=== PATIENT | male | born 1965 | race Caucasian/White ===

== ENCOUNTER 2020-11-30 09:42 | Outpatient (REF) | payer OTHER, SELFPAY ==
--- NOTE | 2020-11-30 11:35 | CT_ITS ---
EXAMINATION: CT ABDOMEN AND PELVIS WITH CONTRAST CLINICAL INFORMATION: Left lower quadrant pain COMPARISON: Previous CT of the abdomen and pelvis March 2020 TECHNIQUE: Multidetector volumetric images were obtained from the superior aspect of the liver through the pubic symphysis following administration 85 mL of Omnipaque 350 intravenous contrast. Sagittal and coronal reformatted images were obtained on the technologist's workstation. Oral contrast: Yes This CT examination was performed using dose optimization techniques as appropriate, variously including the following: *Automated exposure control *Adjustment of mA and/or kV according to patient size (this includes techniques or standardized protocols for targeted exams where dose is matched to indication/reason for exam; i.e. extremities or head) *Use of iterative reconstruction technique DLP: 496 mGy-cm FINDINGS: LUNG BASES: There are 2 small 2 mm peripheral or subpleural calcified left lower lobe nodules and mild left pleural calcification. Similar to previous exam. LIVER, GALLBLADDER, AND BILIARY TREE: The liver is normal in size, shape, and attenuation. There is a small 3 mm low-attenuation lesion in the posterior segment of the right lobe of the liver axial image 23 series 3 this is difficult to characterize due to small size but may represent a small cyst. No biliary ductal dilatation is present. The gallbladder is unremarkable with no evidence of radiopaque gallstones, gallbladder wall thickening, or obvious pericholecystic inflammatory changes. PANCREAS: Unremarkable. SPLEEN: Unremarkable. ADRENAL GLANDS: Unremarkable. KIDNEYS AND URETERS: The kidneys are normal in size, shape, and attenuation. No hydronephrosis, hydroureter, or calculi seen. The previously identified 2 mm left renal stone is not appreciated. No ureteral dilatation or ureteral stone is seen in BLADDER: Not optimally distended. There is question of mild diffuse bladder wall thickening. GASTROINTESTINAL TRACT: There is mild diverticulosis of the colon. No evidence of diverticulitis is seen. Small and large bowel are otherwise. The appendix is unremarkable. The stomach is unremarkable. ABDOMINAL WALL: There is a small umbilical hernia containing fat. There is fat in both canal. LYMPH NODES: Normal. VASCULAR: There is evidence of atherosclerotic disease. No aneurysm is seen. PELVIC VISCERA: Prostate gland is slightly enlarged measuring centimeters. OSSEOUS STRUCTURES: There are degenerative changes of the spine. CT/CT abdomen pelvis w con IMPRESSION: No stone or hydronephrosis is seen. Question new mild diffuse bladder wall thickening. Slightly enlarged prostate gland. Mild diverticulosis. No evidence of diverticulitis.
[2020-11-30] MEDS: Barium Sulfate Oral (Mocha) 450 ML ORAL.SUSP 900 ML PO (12:04)
[2020-11-30] MEDS: iohexoL 350 MG/ML 100 ML INFUS..BTL 85 ML IV (12:04)
== END 2020-11-30 09:43 | disposition home or self-care (01) ==
LOC: HO.CT 09:42
PROVIDERS: Visit Provider Emergency Medicine
DX: R10.32 Left lower quadrant pain (principal); R10.9 Unspecified abdominal pain
CPT/HCPCS: 74177; Q9967

== ENCOUNTER → 2020-12-09 12:43 | Outpatient (BNVA) | payer OTHER, SELFPAY | PROVIDERS: PCP Internal Medicine; Visit Provider Internal Medicine Gastroenterology | DX: Z76.89 Persons encountering health services in other specified circumstances (principal) | CPT/HCPCS: Q3014 ==

== ENCOUNTER 2021-06-18 12:20 | Emergency (ER) | payer OTHER, SELFPAY ==
--- NOTE | ~2021-06-18 | XR_ITS ---
EXAMINATION: XR CHEST CLINICAL INFORMATION: Lower cavity swelling COMPARISON: 05/01/2019 TECHNIQUE: Frontal view of the chest was obtained. FINDINGS: Evidence of previous CABG. No significant abnormality is noted involving the heart, lungs, mediastinum, bony thorax or soft tissues. XR/XR chest 1V IMPRESSION: No CHF.
--- NOTE | ~2021-06-18 | US_ITS ---
EXAMINATION: US VENOUS ULTRASOUND WITH DOPPLER LOWER EXTREMITY, LEFT CLINICAL INFORMATION: Swelling and redness COMPARISON: None TECHNIQUE: Ultrasound of the deep veins is performed from the hip to the calf with compression sonography and color and pulse Doppler assessment. Spectral analysis with color-flow imaging is performed. FINDINGS: There is normal venous compression and respiratory variation and augmented flow. The visualized common femoral vein, superficial femoral vein, profunda femoral vein, popliteal vein, and the trifurcation region shows no evidence of deep venous thrombosis. There is no significant popliteal fossa cyst. If the patient's symptoms persist, followup ultrasound in 5 days 7 days might be of value to exclude proximal propagation from a non-visualized calf vein. Reactive appearing inguinal lymph nodes. US/US venous duplex LE LT IMPRESSION: No DVT demonstrated in the left lower extremity.
[2021-06-18 13:35] VITALS: BP 116/49; PULSE 63; RESP 16; TEMP 36.6; O2SAT 99; BMI 32.0
[2021-06-18 13:46] LABS: MANUAL DIFF FLAG NO
[2021-06-18 13:48] LABS: Basophils Percent Auto 0.3 % (0-2); Eosinophils Absolute Auto 0.2 X10*3/uL (0.0-0.4); Eosinophils Percent Auto 2.4 % (0-4); Hematocrit 38.8 % (42-52); Hemoglobin 12.7 g/dl (14.0-18.0); Imm Gran Abs Auto 0.05 X10*3/uL (0.00-0.03); Imm Gran Pct Auto 0.7 % (0.0-0.4); Lymphocytes Absolute Auto 2.4 X10*3/uL (1.2-4.9); Lymphocytes Percent Auto 33.2 % (20-40); Mean Corpuscular HGB Conc 32.7 g/dl (31.0-36.0); Mean Corpuscular Hemoglobin 27.7 pg (27.0-33.0); Mean Corpuscular Volume 84.5 fL (80-98); Monocytes Absolute Auto 0.6 X10*3/uL (0.1-1.2); Monocytes Percent Auto 8.3 % (2-11); Neutrophils Absolute Auto 3.9 X10*3/uL (2.0-8.3); Neutrophils Percent Auto 55.1 % (45-73); Platelet Count 318 X10*3/uL (160-400); Red Blood Count 4.59 X10*6/uL (4.60-5.80); Red Cell Distribution Width 13.6 % (11.0-16.0); White Blood Count 7.1 X10*3/uL (4.8-10.8)
[2021-06-18 14:12] LABS: Anion Gap 12 (12-20); Blood Urea Nitrogen 12 mg/dL (9-16); Carbon Dioxide 25 mmol/L (22-29); Chloride 106 mmol/L (96-108); Estimated Glomerular Filt Rate > 60; Glucose Random 132 mg/dL (60-115); Potassium 4.6 mmol/L (3.3-5.1); Sodium 138 mmol/L (135-145)
[2021-06-18 14:43] LABS: INTERNATIONAL NORM RATIO 1.1 (0.9-1.1); Prothrombin Time 12.7 SEC (9.9-13.0)
--- NOTE | 2021-06-18 15:04 | ED_ITS ---
HPI - Extremity Problem General Chief complaint: Extremity Problem Stated complaint: leg pain Time Seen by Provider: 06/18/21 14:05 Source: patient Mode of arrival: ambulatory Limitations: language barrier (Occitan-speaking) History of Present Illness HPI Narrative: 55-year-old male with a past medical history of coronary artery disease status post CABG in 2013 currently on a baby aspirin and Plavix, HTN, HLD, GERD, anxiety and internal hemorrhoids presenting to the ED with complaints of left lower extremity pain/swelling/redness for the past 13 days worse today. Reports that it initially started in the upper leg near the groin where it had was painful and red and then it went down to his medial aspect of his knee now it has subsided to his left lower aspect of his leg and he has moderate pain to the calf. He reports that he recently travel to [facility] for 8 days although he was already having pain prior to traveling. He denies history of DVT or PEs. He denies history of hypercoagulation disorder. He denies history of cancer or recent surgeries. He denies any fevers, chills, dizziness, headaches, chest pain, shortness of breath, dyspnea on exertion, orthopnea, palpitations, abdominal pain, abdominal distension, nausea/vomiting/diarrhea, any rashes or any other symptoms complaints or concerns at this time. MD Complaint: extremity pain and extremity swelling Onset (ago): day(s) (13 days worse today) Pain Consistency: constant Location: left and lower extremity Severity scale (1-10): >10 Quality: aching Radiation: distal Relieving factors: nothing Exacerbating factors: weight bearing, walking and palpation Associated symptoms: denies other symptoms Context: recent travel (He recently came back from [facility] although was already having pain prior to travel) Related Data Home Medications Medication Instructions Recorded Confirmed aspirin 81 mg tablet,delayed 81 mg PO DAILY 12/09/20 12/09/20 release (Adult Low Dose Aspirin) atorvastatin 40 mg tablet 40 mg PO BEDTIME 12/09/20 12/09/20 clopidogrel 75 mg tablet (Plavix) 75 mg PO DAILY 12/09/20 12/09/20 pantoprazole 40 mg tablet,delayed 40 mg PO DAILY 12/09/20 12/09/20 release Previous Rx's Medication Instructions Recorded docusate sodium 100 mg capsule 100 mg PO DAILY 30 Days #30 cap 12/09/20 (Colace) cephalexin 500 mg capsule 500 mg PO QID 10 Days #40 cap 06/18/21 doxycycline monohydrate 100 mg 100 mg PO BID 10 Days #20 cap 06/18/21 capsule oxycodone-acetaminophen 5 mg-325 1 tab PO Q6H PRN #10 tab 06/18/21 mg tablet (Percocet) Allergies Allergy/AdvReac Type Severity Reaction Status Date / Time No Known Allergies Allergy Verified 12/09/20 12:43 [No Known Allergies*] Review of Systems Review of Systems: Constitutional : No Weight loss, No Fever, No Chills, No Night Sweats, No Fatigue, No Malaise ENT/Mouth : No Hearing loss, No Ear Pain, No Nasal Congestion, No Sinus Pain, No Hoarseness, No sore throat, No Rhinorrhea, No Swallowing Difficulty Eyes: No Eye Pain, No Swelling, No Redness, No Foreign Body, No Discharge, No Vision Changes Cardiovascular : No Chest Pain, No SOB, No Dyspnea on Exertion, No Orthopnea, No Edema, No Palpitations Respiratory : No Cough, No Sputum, No Wheezing, No Smoke Exposure, No Dyspnea Gastrointestinal : No Nausea, No Vomiting, No Diarrhea, No Constipation, No abdominal Pain, No Hematochezia, No Melena Genitourinary : no irregular bleeding, No Dysuria, No Urinary Frequency, No Hematuria, No Urinary Incontinence, No Urgency, No Flank Pain, No Urinary Flow Changes, No Hesitancy Musculoskeletal : Left lower extremity pain/swelling/surrounding redness with calf tenderness, No Myalgias Skin : No Skin Lesions, No rash Neuro : No Weakness, No Numbness, No Paresthesias, No Loss of Consciousness, No Dizziness, No Headache Psych : No Anxiety/Panic, No Depression, No SI/HI/AH/VH, No Social Issues, Heme/Lymph: No Bruising, No Bleeding,No Lymphadenopathy Endocrine : No Polyuria, No Polydipsia, No Temperature Intolerance Yes all other systems are reviewed and are negative [facility] Past Medical History Attestation statement: The following information was validated with the patient. Medical History GERD (gastroesophageal reflux disease) Internal hemorrhoids Surgical History Hx of CABG Hx of colonoscopy Hx of transurethral resection of prostate Social History Social History Household Members: Spouse Alcohol intake: current Alcohol intake frequency: holidays/special occasions only Advance Directives: Yes Advance Directives Information Provided: Yes Advance Directives on File: No Physical Exam Vital Signs: Vital Signs: Last Vital Signs Temp 97.9 F 06/18/21 13:35 Pulse 63 06/18/21 13:35 Resp 16 06/18/21 13:35 BP 116/49 L 06/18/21 13:35 Pulse Ox 99 06/18/21 13:35 Body Mass Index 32.0 vital signs have been reviewed as normal and appeared to be correct. Blood pressure hypotensive 116/49. Heart rate normal. Respiration rate normal. Tem perature normal. Oxygen saturation normal. Appearance: Alert. Oriented X3. No acute distress. Head: Normal external exam. Normocephalic. Atraumatic. Eyes: PERRLA. EOMI. Conjunctiva and sclera normal. Eyelids normal. ENT: Pharynx normal. Uvula midline. Moist mucous membranes. Neck: Normal inspection. Neck supple. FROM. No adenopathy. No meningeal signs. CVS: Normal heart rate and rhythm. Heart sound normal. Pulses normal throughout. No murmurs/rales/gallops. Respiratory: No respiratory distress. Painless inspiration. Breath sounds normal. No wheezes/rales/rhonchi noted. Chest nontender. No accessory muscle usage noted or decreased air movement noted. Back: Full range of motion noted. Skin: Skin warm and dry. Normal skin color. Normal skin turgor. No ra shes/lesions/lacerations noted. Extremities: Patient with moderate tenderness to palpation and erythema and edema to left lower extremity with calf tenderness. No right lower extremity tenderness/swelling/pitting edema noted. Otherwise all other extremities exhibit normal range of motion and nontender. Neuro: Oriented X 3. No motor deficit. No sensory deficit. Reflexes normal. Normal steady gait. No focal neuro deficits noted. Vascular: + radial pulses/+ 2 distal pedal pulses/+2 dorsalis pedis b/l. Normal cap refill. No cyanosis noted to upper extremity nails and lower extremity toes nails. Course Course Course Narrative: 14:10pm - 55-year-old male with a past medical history of coronary artery disease status post CABG in 2013 currently on a baby aspirin and Plavix, HTN, HLD presenting to the ED with complaints of left lower extremity pain/swelling/redness for the past 13 days worse today. Reports that it initially started in the upper leg near the groin where it had was painful and red and then it went down to his medial aspect of his knee now it has subsided to his left lower aspect of his leg and he has moderate pain to the calf. He reports that he recently travel to [facility] for 8 days although he was already having pain prior to traveling. Plan: Labs, chest x-ray and a venous duplex ultrasound of left lower extremity Reevaluation(s) Reevaluation #1: - labs obtained and patient with a mild baseline anemia similar when compared to prior. Otherwise all other labs including BNP within normal limits. Chest x-ray within normal limits no evidence of CHF. Venous duplex ultrasound of left lower extremity negative for DVT or any other acute processes. Therefore patient most likely pedal edema with cellulitic infection. Will DC home antibiotics and symptomatic treatment along with instructions return if any new or worsening symptoms to follow up with primary care provider. Patient understands agrees with this plan. Time: 16:15 MDM - Extremity (Nontraumatic) Lab Data Attestation: I reviewed the patient's lab results. Result diagrams: 06/18/21 13:42 06/18/21 13:42 Labs: Lab Results 06/18/21 06/18/21 06/18/21 Range/Units 13:42 13:42 14:33 WBC 7.1 (4.8-10.8) X10*3/uL RBC 4.59 L (4.60-5.80) X10*6/uL Hgb 12.7 L (14.0-18.0) g/dl Hct 38.8 L (42-52) % MCV 84.5 (80-98) fL MCH 27.7 (27.0-33.0) pg MCHC 32.7 (31.0-36.0) g/dl RDW 13.6 (11.0-16.0) % Plt Count 318 (160-400) X10*3/uL MPV 10.0 (9.4-12.4) fL Immature Gran % (Auto) 0.7 H (0.0-0.4) % Neut % (Auto) 55.1 (45-73) % Lymph % (Auto) 33.2 (20-40) % [place] % (Auto) 8.3 (2-11) % Eos % (Auto) 2.4 (0-4) % Baso % (Auto) 0.3 (0-2) % Lymph # (Auto) 2.4 (1.2-4.9) X10*3/uL [place] # (Auto) 0.6 (0.1-1.2) X10*3/uL Eos # (Auto) 0.2 (0.0-0.4) X10*3/uL Baso # (Auto) 0.0 (0.0-0.2) X10*3/uL Abs Immat Gran (auto) 0.05 H (0.00-0.03) X10*3/uL Absolute Neuts (auto) 3.9 (2.0-8.3) X10*3/uL Absolute Nucleated RBC 0.000 (0.0-0.012) X10*3/uL Nucleated RBC % (auto) 0.0 (0.0-0.2) /100WBC Hold Purple Top PT 12.7 (9.9-13.0) SEC INR 1.1 (0.9-1.1) Sodium 138 (135-145) mmol/L Potassium 4.6 (3.3-5.1) mmol/L Chloride 106 (96-108) mmol/L Carbon Dioxide 25 (22-29) mmol/L Anion Gap 12 (12-20) BUN 12 (9-16) mg/dL Creatinine 0.93 (0.5-1.4) mg/dL Estim Creat Clear Calc 92.0 Estimated GFR > 60 Random Glucose 132 H (60-115) mg/dL Calcium 9.0 (8.4-10.2) mg/dL B-Natriuretic Peptide (<100) pg/mL 06/18/21 06/18/21 Range/Units 14:33 14:33 WBC (4.8-10.8) X10*3/uL RBC (4.60-5.80) X10*6/uL Hgb (14.0-18.0) g/dl Hct (42-52) % MCV (80-98) fL MCH (27.0-33.0) pg MCHC (31.0-36.0) g/dl RDW (11.0-16.0) % Plt Count (160-400) X10*3/uL MPV (9.4-12.4) fL Immature Gran % (Auto) (0.0-0.4) % Neut % (Auto) (45-73) % Lymph % (Auto) (20-40) % [place] % (Auto) (2-11) % Eos % (Auto) (0-4) % Baso % (Auto) (0-2) % Lymph # (Auto) (1.2-4.9) X10*3/uL [place] # (Auto) (0.1-1.2) X10*3/uL Eos # (Auto) (0.0-0.4) X10*3/uL Baso # (Auto) (0.0-0.2) X10*3/uL Abs Immat Gran (auto) (0.00-0.03) X10*3/uL Absolute Neuts (auto) (2.0-8.3) X10*3/uL Absolute Nucleated RBC (0.0-0.012) X10*3/uL Nucleated RBC % (auto) (0.0-0.2) /100WBC Hold Purple Top SEE NOTE PT (9.9-13.0) SEC INR (0.9-1.1) Sodium (135-145) mmol/L Potassium (3.3-5.1) mmol/L Chloride (96-108) mmol/L Carbon Dioxide (22-29) mmol/L Anion Gap (12-20) BUN (9-16) mg/dL Creatinine (0.5-1.4) mg/dL Estim Creat Clear Calc Estimated GFR Random Glucose (60-115) mg/dL Calcium (8.4-10.2) mg/dL B-Natriuretic Peptide 51 (<100) pg/mL Imaging Data Chest x-ray: Attestation: I personally reviewed and interpreted this imaging study as follows: Radiologist's impression: FINDINGS: Evidence of previous CABG. No significant abnormality is noted involving the heart, lungs, mediastinum, bony thorax or soft tissues. XR/XR chest 1V IMPRESSION: No CHF. Venous duplex ultrasound of left lower extremity: Attestation: I personally reviewed and interpreted this imaging study as follows: Radiologist's impression: FINDINGS: There is normal venous compression and respiratory variation and augmented flow. The visualized common femoral vein, superficial femoral vein, profunda femoral vein, popliteal vein, and the trifurcation region shows no evidence of deep venous thrombosis. ? There is no significant popliteal fossa cyst. If the patient's symptoms persist, followup ultrasound in 5 days 7 days might be of value to exclude proximal propagation from a non-visualized calf vein. Reactive appearing inguinal lymph nodes. US/US venous duplex LE LT IMPRESSION: No DVT demonstrated in the left lower extremity. Discharge Plan Discharge Clinical Impression: Pedal edema, Cellulitis Patient Disposition: Home, Self-Care Instructions: Cellulitis (ED), Leg Edema (ED) Prescriptions: New doxycycline monohydrate 100 mg capsule 100 mg PO BID 10 Days Qty: 20 RF: 0 cephalexin 500 mg capsule 500 mg PO QID 10 Days Qty: 40 RF: 0 oxycodone-acetaminophen [Percocet] 5-325 mg tablet 1 tab PO Q6H PRN (Reason: pain) Qty: 10 RF: 0 No Action pantoprazole 40 mg tablet,delayed release (DR/EC) 40 mg PO DAILY RF: 0 clopidogrel [Plavix] 75 mg tablet 75 mg PO DAILY RF: 0 aspirin [Adult Low Dose Aspirin] 81 mg tablet,delayed release (DR/EC) 81 mg PO DAILY RF: 0 atorvastatin 40 mg tablet 40 mg PO BEDTIME RF: 0 docusate sodium [Colace] 100 mg capsule 100 mg PO DAILY 30 Days Qty: 30 RF: 5 Referrals: Chris Phoenix MD [Primary Care Provider] - 2 days Print Language: Occitan
[2021-06-18 15:06] LABS: B Type Natriuretic Peptide 51 pg/mL (<100)
== END 2021-06-18 16:25 | disposition home or self-care (01) ==
PROVIDERS: Physician Assistant Medical; Emergency Provider Internal Medicine; PCP Internal Medicine
DX: R60.0 Localized edema (principal); L03.116 Cellulitis of left lower limb; M79.662 Pain in left lower leg; D64.9 Anemia, unspecified; I10 Essential (primary) hypertension; E78.5 Hyperlipidemia, unspecified; Z79.82 Long term (current) use of aspirin; Z79.02 Long term (current) use of antithrombotics/antiplatelets; Z79.899 Other long term (current) drug therapy; Z95.1 Presence of aortocoronary bypass graft
CPT/HCPCS: 36415; 71045; 80048; 83880; 85025; 85610; 93971; 99283; 99284

== ENCOUNTER 2021-06-29 14:19 | Outpatient (REF) | payer OTHER, SELFPAY ==
--- NOTE | ~2021-06-29 | XR_ITS ---
EXAMINATION: XR ANKLE, LEFT XR FOOT, LEFT CLINICAL INFORMATION: Edema. COMPARISON: None. TECHNIQUE: AP, oblique, and lateral views of the left ankle and foot. FINDINGS: No acute fracture or dislocation. Circumferential left ankle soft tissue swelling. Degenerative spurring at the dorsal aspect of the talar head. First metatarsophalangeal hallux valgus angulation with lateral subluxation of the hallux sesamoids. Joint space narrowing with marginal osteophytes at the 1st metatarsophalangeal joint and hallux sesamoids. Plantar and dorsal calcaneal spurs. XR/XR foot LT min 3V IMPRESSION: Circumferential soft tissue swelling without acute osseous abnormality. Prominent degenerative spurring at the dorsal talar head. 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 Small plantar and dorsal calcaneal spurs.
--- NOTE | ~2021-06-29 | US_ITS ---
EXAMINATION: US VENOUS ULTRASOUND WITH DOPPLER LOWER EXTREMITY, LEFT CLINICAL INFORMATION: Swelling COMPARISON: Previous exam June 18, 2021 TECHNIQUE: Ultrasound of the deep veins is performed from the hip to the calf with compression sonography and color and pulse Doppler assessment. Spectral analysis with color-flow imaging is performed. FINDINGS: There is normal venous compression and respiratory variation and augmented flow. The visualized common femoral vein, superficial femoral vein, profunda femoral vein, popliteal vein, and the trifurcation region shows no evidence of deep venous thrombosis. There is no popliteal fossa cyst. There is shotty left inguinal lymphadenopathy. US/US venous duplex LE LT IMPRESSION: No DVT demonstrated in the left lower extremity.
--- NOTE | ~2021-06-29 | XR_ITS ---
EXAMINATION: XR ANKLE, LEFT XR FOOT, LEFT CLINICAL INFORMATION: Edema. COMPARISON: None. TECHNIQUE: AP, oblique, and lateral views of the left ankle and foot. FINDINGS: No acute fracture or dislocation. Circumferential left ankle soft tissue swelling. Degenerative spurring at the dorsal aspect of the talar head. First metatarsophalangeal hallux valgus angulation with lateral subluxation of the hallux sesamoids. Joint space narrowing with marginal osteophytes at the 1st metatarsophalangeal joint and hallux sesamoids. Plantar and dorsal calcaneal spurs. XR/XR ankle LT min 3V IMPRESSION: Circumferential soft tissue swelling without acute osseous abnormality. Prominent degenerative spurring at the dorsal talar head. 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 Small plantar and dorsal calcaneal spurs.
== END 2021-06-29 14:20 | disposition home or self-care (01) ==
LOC: HO.US 14:19
PROVIDERS: PCP Internal Medicine; Visit Provider Internal Medicine
DX: R60.0 Localized edema (principal)
CPT/HCPCS: 73610; 73630; 93971

== ENCOUNTER 2021-07-12 10:57 | Outpatient (REF) | payer OTHER, SELFPAY ==
[2021-07-12 11:51] LABS: MANUAL DIFF FLAG NO
[2021-07-12 11:58] LABS: Basophils Percent Auto 0.5 % (0-2); Eosinophils Absolute Auto 0.2 X10*3/uL (0.0-0.4); Eosinophils Percent Auto 2.5 % (0-4); Hematocrit 39.6 % (42-52); Hemoglobin 12.9 g/dl (14.0-18.0); Imm Gran Abs Auto 0.03 X10*3/uL (0.00-0.03); Imm Gran Pct Auto 0.5 % (0.0-0.4); Lymphocytes Absolute Auto 2.3 X10*3/uL (1.2-4.9); Lymphocytes Percent Auto 38.7 % (20-40); Mean Corpuscular HGB Conc 32.6 g/dl (31.0-36.0); Mean Corpuscular Hemoglobin 27.3 pg (27.0-33.0); Mean Corpuscular Volume 83.9 fL (80-98); Mean Platelet Volume 11.1 fL (9.4-12.4); Monocytes Absolute Auto 0.5 X10*3/uL (0.1-1.2); Monocytes Percent Auto 8.6 % (2-11); Neutrophils Absolute Auto 2.9 X10*3/uL (2.0-8.3); Neutrophils Percent Auto 49.2 % (45-73); Platelet Count 235 X10*3/uL (160-400); Red Blood Count 4.72 X10*6/uL (4.60-5.80); Red Cell Distribution Width 14.1 % (11.0-16.0)
[2021-07-12 12:07] LABS: D Dimer 427 NG/ML
[2021-07-12 12:22] LABS: Anion Gap 12 (12-20); Blood Urea Nitrogen 11 mg/dL (9-16); Calcium 9.4 mg/dL (8.4-10.2); Carbon Dioxide 22 mmol/L (22-29); Chloride 106 mmol/L (96-108); Estimated Glomerular Filt Rate > 60; Glucose Random 111 mg/dL (60-115); Potassium 4.7 mmol/L (3.3-5.1); Sodium 135 mmol/L (135-145)
[2021-07-12 12:52] LABS: Erythrocyte Sedimentation Rate 12 MM/HR (0-15)
== END 2021-07-12 10:58 | disposition home or self-care (01) ==
LOC: HO.LAB 10:57
PROVIDERS: PCP Internal Medicine; Visit Provider Internal Medicine
DX: R10.32 Left lower quadrant pain (principal)
CPT/HCPCS: 36415; 80048; 85025; 85379; 85652

== ENCOUNTER → 2021-07-29 15:21 | Outpatient (BNVA) | payer OTHER, SELFPAY | PROVIDERS: PCP Internal Medicine; Referring Provider Internal Medicine; Visit Provider Surgery | DX: K64.9 Unspecified hemorrhoids (principal) | CPT/HCPCS: 46600; 99202 ==

== ENCOUNTER → 2021-08-16 10:47 | Outpatient (BNVA) | payer OTHER, SELFPAY | PROVIDERS: PCP Internal Medicine; Referring Provider Internal Medicine; Visit Provider Nurse Practitioner Family | DX: K21.9 Gastro-esophageal reflux disease without esophagitis (principal); K64.8 Other hemorrhoids; Z87.19 Personal history of other diseases of the digestive system | CPT/HCPCS: 99202 ==

== ENCOUNTER 2021-09-03 12:39 | Emergency (ER) | payer OTHER, SELFPAY ==
--- NOTE | 2021-09-03 | ECG_ITS ---
Test Reason : chest pain Blood Pressure : / mmHG Vent. Rate : 068 BPM Atrial Rate : 068 BPM P-R Int : 158 ms QRS Dur : 090 ms QT Int : 400 ms P-R-T Axes : 013 -12 057 degrees QTc Int : 425 ms Normal sinus rhythm Left axis deviation Otherwise normal ECG No significant changes seen Referred By: Generic ED Physician Electronically Signed By:LORIE CHAN MD
--- NOTE | ~2021-09-03 | XR_ITS ---
EXAMINATION: XR HIP, LEFT CLINICAL INFORMATION: Left hip pain. Question arthritis for fracture. COMPARISON: Previous pelvis and bilateral hip x-ray January 2016 TECHNIQUE: Two views of the left hip and one view of the pelvis. FINDINGS: Bone alignment is normal. No fracture or dislocation is seen. There are acetabular osteophytes at both hip joints, left greater than right. Joint spaces are otherwise normal. Bones of the pelvis are normal. Soft tissues are normal. XR/XR hip LT w PEL1V IMPRESSION: Mild degenerative changes of both hip joints with small acetabular osteophytes, left greater than right. No fracture seen.
--- NOTE | ~2021-09-03 | CT_ITS ---
EXAMINATION: NONCONTRAST HEAD CT NONCONTRAST CERVICAL SPINE CT INDICATION INFORMATION: Neck pain. Left arm numbness. COMPARISON: 06/21/2018 TECHNIQUE: Separate noncontrast CT examinations of the head and cervical spine were performed. Coronal and sagittal images were created for each examination at the technologist workstation. This CT examination was performed using dose optimization techniques as appropriate, variously including the following: *Automated exposure control *Adjustment of mA and/or kV according to patient size (this includes techniques or standardized protocols for targeted exams where dose is matched to indication/reason for exam; i.e. extremities or head) *Use of iterative reconstruction technique DLP: 1458 mGy-cm FINDINGS: Head: There is no evidence of acute intracranial hemorrhage or territorial infarction. No abnormal mass effect or midline shift is seen. Luo to white matter differentiation is well preserved. No extra-axial fluid collections are identified. No hydrocephalus. No significant volume loss. There is no abnormal attenuation within the brain parenchyma. No acute osseous or soft tissue abnormality. The mastoid air cells and visualized portions of the paranasal sinuses are well aerated. Cervical spine: There is anatomic alignment of the vertebral bodies and posterior elements. The atlantoaxial and atlantooccipital articulations are intact. Vertebral body heights and intervertebral disc spaces are maintained. Small multilevel endplate osteophytes throughout the cervical spine. Mild right bony neuroforaminal narrowing at C4-C5 and C5-C6. No evidence of acute fracture. No prevertebral soft tissue swelling. Visualized portions of the lung apices are unremarkable. The thyroid gland is unremarkable. CT/CT cervical spine wo con IMPRESSION: 1. No acute intracranial finding. 2. No acute fracture or malalignment of the cervical spine. Mild degenerative changes throughout. Mild right-sided bony neuroforaminal narrowing at C4-C5 and C5-C6.
[2021-09-03 12:43] VITALS: BP 133/55; PULSE 70; RESP 18; TEMP 37.2; O2SAT 98; BMI 30.7
[2021-09-03 13:25] LABS: MANUAL DIFF FLAG NO
[2021-09-03 13:26] LABS: Basophils Percent Auto 0.2 % (0-2); Eosinophils Absolute Auto 0.2 X10*3/uL (0.0-0.4); Eosinophils Percent Auto 2.6 % (0-4); Hematocrit 34.9 % (42.0-52.0); Hemoglobin 11.4 g/dl (14.0-18.0); Imm Gran Abs Auto 0.02 X10*3/uL (0.00-0.03); Imm Gran Pct Auto 0.3 % (0.0-0.4); Lymphocytes Absolute Auto 1.6 X10*3/uL (1.2-4.9); Lymphocytes Percent Auto 24.4 % (20-40); Mean Corpuscular HGB Conc 32.7 g/dl (31.0-36.0); Mean Corpuscular Hemoglobin 27.6 pg (27.0-33.0); Mean Corpuscular Volume 84.5 fL (80.0-98.0); Mean Platelet Volume 10.8 fL (9.4-12.4); Monocytes Absolute Auto 0.5 X10*3/uL (0.1-1.2); Monocytes Percent Auto 7.6 % (2-11); Neutrophils Absolute Auto 4.3 x10*3/uL (2.0-8.3); Neutrophils Percent Auto 64.9 % (45-73); Platelet Count 254 X10*3/uL (160-400); Red Blood Count 4.13 X10*6/uL (4.60-5.80); Red Cell Distribution Width 13.5 % (11.0-16.0); White Blood Count 6.6 X10*3/uL (4.8-10.8)
[2021-09-03 13:42] LABS: Alanine Aminotransferase 24 U/L (0-40); Albumin Level 4.1 g/dL (3.5-5.0); Alkaline Phosphatase 77 U/L (39-117); Anion Gap 11 (12-20); Aspartate Amino Transferase 19 U/L (5-37); Bilirubin Total 0.6 mg/dL (0.0-1.0); Blood Urea Nitrogen 18 mg/dL (9-16); Calcium 8.4 mg/dL (8.4-10.2); Carbon Dioxide 23 mmol/L (22-29); Chloride 107 mmol/L (96-108); Estimated Glomerular Filt Rate > 60; Glucose Random 108 mg/dL (60-115); Potassium 3.9 mmol/L (3.3-5.1); Sodium 137 mmol/L (135-145)
[2021-09-03 13:45] LABS: Troponin-I High Sensitivity < 3.5 ng/L (<3.5-35.0)
[2021-09-03 16:35] VITALS: BP 120/52; PULSE 80; RESP 16; TEMP 36.8; O2SAT 99
[2021-09-03 16:59] LABS: Magnesium 2.2 mg/dL (1.6-2.6)
--- NOTE | 2021-09-03 17:04 | ED_ITS ---
HPI - General Adult General Chief complaint: General Medical Stated complaint: lt side body numbness, eye issue Time Seen by Provider: 09/03/21 13:34 Source: patient Mode of arrival: ambulatory Limitations: no limitations History of Present Illness HPI narrative: Patient presents to ED for multiple complaints. Patient presents to ED for left arm pain and numbness starting from posterior neck for the past 4 months. Patient states left hip pain radiating down left leg with slight numbness for the past 3 months. Patient denies any trauma, slurred speech, facial droop, dizziness, headache, or paralysis of extremities. Patient states yesterday the pain was some verbal that he vomited. Patient states no vomiting today. Patient states yesterday he was vomiting so far it caused some redness to the left eye. Patient denies any change in left eye vision or pain. Patient denies any chest pain or shortness of breath Related Data Home Medications Medication Instructions Recorded Confirmed aspirin 81 mg tablet,delayed 81 mg PO DAILY 12/09/20 07/29/21 release (Adult Low Dose Aspirin) atorvastatin 40 mg tablet 40 mg PO BEDTIME 12/09/20 07/29/21 clopidogrel 75 mg tablet (Plavix) 75 mg PO DAILY 12/09/20 07/29/21 pantoprazole 40 mg tablet,delayed 40 mg PO DAILY 12/09/20 07/29/21 release aspirin 81 mg chewable tablet 1 tab PO DAILY 08/16/21 lisinopril 20 mg tablet 20 mg PO QAM 08/16/21 metoprolol succinate 50 mg 0 mg PO 08/16/21 tablet,extended release 24 hr zolpidem 10 mg tablet 10 mg PO BEDTIME PRN 08/16/21 Previous Rx's Medication Instructions Recorded cephalexin 500 mg capsule 500 mg PO QID 10 Days #40 cap 06/18/21 doxycycline monohydrate 100 mg 100 mg PO BID 10 Days #20 cap 06/18/21 capsule oxycodone-acetaminophen 5 mg-325 1 tab PO Q6H PRN #10 tab 06/18/21 mg tablet (Percocet) docusate sodium 100 mg capsule 100 mg PO .QD #30 cap 06/23/21 hydrocortisone 2.5 % topical cream 1 appl GA BID-QID PRN #30 g 08/16/21 with perineal applicator (Proctosol HC) oxycodone-acetaminophen 5 mg-325 1 tab PO TID PRN #9 tab 09/03/21 mg tablet (Percocet) prednisone 20 mg tablet 60 mg PO DAILY 5 Days #15 tab 09/03/21 Allergies Allergy/AdvReac Type Severity Reaction Status Date / Time No Known Allergies Allergy Verified 08/16/21 11:23 [No Known Allergies*] Review of Systems Review of Systems: Yes all other systems are reviewed and are negative Constitutional: Constitutional: Reports as per HPI and Reports no additional constitutional complaints Eyes: Eyes: Reports as per HPI and Reports no additional eye complaints Comments: Left eye redness ENT: Reports system reviewed and no additional complaints, except as documented, Reports as per HPI and Reports neck pain Cardiovascular: Cardiovascular: Reports as per HPI and Reports no additional cardiovascular complaints Respiratory: Respiratory: Reports as per HPI and Reports no additional respiratory complaints Gastrointestinal: Gastrointestinal: Reports as per HPI and Reports no additional gastrointestinal complaints Genitourinary: Genitourinary: Reports no additional male genitourinary complaints and Reports as per HPI Musculoskeletal: Musculoskeletal: Reports no additional musculoskeletal complaints, Reports as per HPI, Reports arthralgias (Left arm pain/tingling and left hip/leg pain tingling) and Reports neck pain Neurologic: Reports system reviewed and no additional complaints, except as documented and Reports as per HPI Psychiatric: Psychiatric: Reports no additional psychiatric complaints and Reports as per HPI Endocrine: Endocrine: Reports no additional endocrine complaints and Reports as per HPI PMF Past Medical History Medical History (Updated 09/03/21 @ 17:33 by YULIA Oconnell) Bleeding hemorrhoids GERD (gastroesophageal reflux disease) Internal hemorrhoids Surgical History (Updated 08/16/21 @ 11:25 by PAULA Bhardwaj) Hx of CABG Hx of colonoscopy Hx of transurethral resection of prostate Social History Social History Household Members: Spouse Alcohol intake: unknown Patient Tobacco Use Status: Tobacco use Unknown Advance Directives: No Advance Directives Information Provided: No Physical Exam Vital Signs: Vital Signs: Last Vital Signs Temp 98.3 F 09/03/21 16:35 Pulse 80 09/03/21 16:35 Resp 16 09/03/21 16:35 BP 120/52 L 09/03/21 16:35 Pulse Ox 99 09/03/21 16:35 Body Mass Index 30.7 Const: General: cooperative, healthy appearing, comfortable, no acute distress, well developed, alert, awake and Physically active Orientation/consciousness: patient oriented x3 HENMT: Head: Yes normal to inspection, Yes No palpable skull fracture present, Yes normocephalic, Yes atraumatic, No abrasion, No Acrocyanosis present, No Castro's sign, No contusion, No hematoma, No laceration, No occipital foramen tenderness, No palpable skull fracture, No raccoon eyes, No scalp lesion, No scalp tenderness, No Temporal artery tenderness present and No periorbital ecchymosis Eyes: General: appearance normal, both eyes and all related structures Eyes/upper lids images: 1. Positive for subconjunctival hemorrhage. 2. Positive for subconjunctival hemorrhage Neck: Neck: Yes normal visual inspection, Yes full ROM, Yes no lymphadenopathy, Yes no meningeal signs, Yes trachea midline, Yes supple, No anterior neck swelling and Yes tender (Posterior cervical mild) Chest: Chest palpation & inspection: normal inspection of the chest and normal palpation of entire chest wall Resp: Effort & Inspection: normal respiratory effort and able to speak in complete sentences Auscultation: clear to auscultation bilaterally Cardio: Jugular venous distension: no JVD Heart sounds: S1 normal heart sound present and S2 normal heart sound present GI: Inspection: Yes normal to inspection and No abdominal wall ecchymosis Palpation (GI): Soft to palpation, not firm, nontender, no guarding and not rigid : General: No CVA tenderness and Yes no CVA tenderness Back/Spine/Pelvis: Back: no CVA tenderness, No CVA tenderness and No back tenderness Skin: General skin exam: no rashes or lesions noted and elasticity normal Neuro: Other: All extremities equal strength 5+. [id number] rapid hand movement intact. Negative facial droop. Negative slurred speech. Ctmwqj-[id number] and rapid hand movement intact. Negative Romberg General: patient oriented x3, gait normal, no meningeal signs and CN's II-XI intact bilaterally Cranial nerves: Yes CN's II-XII intact bilaterally Extrem: Other: Left upper extremity negative for swelling, ecchymosis, deformity, tenderness, erythema, coldness, hardness. Left upper extremity motor/neuro/vascular exam is intact Left lower extremity: Positive for hip tenderness on palpation. Negative for deformity, femoral pulses intact. Negative for swelling of left lower extremity. Negative for redness, ecchymosis, calf pain. Left lower extremity motor/neuro/vascular exam intact. General: Yes normal to inspection and Yes full ROM Psych: Appearance: grossly normal, well kempt and not disheveled Course Course Course Narrative: Patient rapidly medically screen. Patient had labs including EKG and troponin. Well as cervical spine CT scan and left hip x-ray. Neuro exam is intact. NIH score 0. Not suspecting stroke. For add magnesium. Reevaluation(s) Reevaluation #1: Patient troponin negative. Labs normal. Magnesium normal. Cervical spine shows arthritis of the cervical spine with neuro foraminal narrowing. Left hip shows arthritis. Will be discharged with pain meds and steroids. Left eye exam indicates sub conjunctival hemorrhage Time: 17:26 Medical Decision Making MDM Narrative Medical decision making narrative: Subconjunctival hemorrhage. Cervical radiculopathy, left hip arthritis. Lab Data Result diagrams: 09/03/21 13:12 09/03/21 13:12 Labs: Lab Results 09/03/21 09/03/21 09/03/21 Range/Units 13:12 13:12 13:12 WBC 6.6 (4.8-10.8) X10*3/uL RBC 4.13 L (4.60-5.80) X10*6/uL Hgb 11.4 L (14.0-18.0) g/dl Hct 34.9 L (42.0-52.0) % MCV 84.5 (80.0-98.0) fL MCH 27.6 (27.0-33.0) pg MCHC 32.7 (31.0-36.0) g/dl RDW 13.5 (11.0-16.0) % Plt Count 254 (160-400) X10*3/uL MPV 10.8 (9.4-12.4) fL Immature Gran % (Auto) 0.3 (0.0-0.4) % Neut % (Auto) 64.9 (45-73) % Lymph % (Auto) 24.4 (20-40) % Bartholomew % (Auto) 7.6 (2-11) % Eos % (Auto) 2.6 (0-4) % Baso % (Auto) 0.2 (0-2) % Lymph # (Auto) 1.6 (1.2-4.9) X10*3/uL Bartholomew # (Auto) 0.5 (0.1-1.2) X10*3/uL Eos # (Auto) 0.2 (0.0-0.4) X10*3/uL Baso # (Auto) 0.0 (0.0-0.2) X10*3/uL Abs Immat Gran (auto) 0.02 (0.00-0.03) X10*3/uL Absolute Neuts (auto) 4.3 (2.0-8.3) x10*3/uL Absolute Nucleated RBC 0.000 (0.0-0.012) X10*3/uL Nucleated RBC % (auto) 0.0 (0.0-0.2) /100WBC Sodium 137 (135-145) mmol/L Potassium 3.9 (3.3-5.1) mmol/L Chloride 107 (96-108) mmol/L Carbon Dioxide 23 (22-29) mmol/L Anion Gap 11 L (12-20) BUN 18 H D (9-16) mg/dL Creatinine 0.89 (0.5-1.4) mg/dL Estim Creat Clear Calc 93.0 Estimated GFR > 60 Random Glucose 108 (60-115) mg/dL Calcium 8.4 D (8.4-10.2) mg/dL Magnesium 2.2 (1.6-2.6) mg/dL Total Bilirubin 0.6 (0.0-1.0) mg/dL AST 19 (5-37) U/L ALT 24 (0-40) U/L Alkaline Phosphatase 77 (39-117) U/L Troponin I High Sens < 3.5 (<3.5-35.0) ng/L Total Protein 7.0 (6.5-8.0) g/dL Albumin 4.1 (3.5-5.0) g/dL ECG Data Interpretation: Normal sinus rhythm. Ventricular rate 68. Pr interval 158. QRS 90. QTC 425. Negative STEMI Discharge Plan Discharge Clinical Impression: Cervical radiculopathy, Subconjunctival hemorrhage of left eye, Arthritis of hip Patient Disposition: Home, Self-Care Instructions: Subconjunctival Hemorrhage (ED), Osteoarthritis (ED), Cervical Radiculopathy (ED) Additional Instructions: Amezcua electrocardiograma y an?lisis de cornelio resultaron negativos para un ataque card?aco. La tomograf?a computarizada de la columna cervical muestra artritis severa y la radiograf?a de cadera tambi?n muestra artritis severa. Amezcua hemorragia subconjuntival del iam shauna se resolver? por s? linda. Regrese al servicio de urgencias inmediatamente si tiene dolor en el pecho, dificultad para respirar, dolor abdominal, hematuria, dolor en el costado, fiebre limpia con escalofr?os, par?lisis de las extremidades superiores e inferiores, dolor de shalonda kanchan, dolor de antoni, fotofobia , mareos, dificultad para hablar, ca?da facial, iam dolor, o cualquier otro s?ntoma preocupante. Carmen un seguimiento con el proveedor de atenci?n primaria. Prescriptions: New prednisone 20 mg tablet 60 mg PO DAILY 5 Days Qty: 15 RF: 0 oxycodone-acetaminophen [Percocet] 5-325 mg tablet 1 tab PO TID PRN (Reason: pain) Qty: 9 RF: 0 No Action docusate sodium 100 mg capsule 100 mg PO .QD Qty: 30 RF: 5 doxycycline monohydrate 100 mg capsule 100 mg PO BID 10 Days Qty: 20 RF: 0 cephalexin 500 mg capsule 500 mg PO QID 10 Days Qty: 40 RF: 0 oxycodone-acetaminophen [Percocet] 5-325 mg tablet 1 tab PO Q6H PRN (Reason: pain) Qty: 10 RF: 0 lisinopril 20 mg tablet 20 mg PO QAM RF: 0 metoprolol succinate 50 mg tablet extended release 24 hr 0 mg PO RF: 0 zolpidem 10 mg tablet 10 mg PO BEDTIME PRN (Reason: insomnia) RF: 0 aspirin 81 mg tablet,chewable 1 tab PO DAILY RF: 0 hydrocortisone [Proctosol HC] 2.5 % cream with perineal applicator 1 appl GA BID-QID PRN (Reason: hemorrhoids) Qty: 30 RF: 2 pantoprazole 40 mg tablet,delayed release (DR/EC) 40 mg PO DAILY RF: 0 clopidogrel [Plavix] 75 mg tablet 75 mg PO DAILY RF: 0 aspirin [Adult Low Dose Aspirin] 81 mg tablet,delayed release (DR/EC) 81 mg PO DAILY RF: 0 atorvastatin 40 mg tablet 40 mg PO BEDTIME RF: 0 Referrals: Aguila Wise [Physician] - 2 days (Left subconjunctival hemorrhage) Interventions: ED Discharge Assessment Last Done: 09/03/21 18:09 Discharge Date/Time: 09/03/21 18:10 Print Language: Italian
== END 2021-09-03 18:10 | disposition home or self-care (01) ==
PROVIDERS: Physician Assistant; Emergency Provider Internal Medicine; PCP Internal Medicine
DX: M54.12 Radiculopathy, cervical region (principal); H11.32 Conjunctival hemorrhage, left eye; M16.12 Unilateral primary osteoarthritis, left hip; I10 Essential (primary) hypertension; E78.5 Hyperlipidemia, unspecified; I25.10 Atherosclerotic heart disease of native coronary artery without angina pectoris; Z79.02 Long term (current) use of antithrombotics/antiplatelets; Z79.01 Long term (current) use of anticoagulants; Z79.82 Long term (current) use of aspirin
CPT/HCPCS: 36415; 70450; 72125; 73502; 80053; 83735; 84484; 85025; 93005; 99284

== ENCOUNTER → 2021-09-17 10:16 | Outpatient (BNVA) | payer OTHER, SELFPAY | PROVIDERS: PCP Internal Medicine; Referring Provider Internal Medicine; Visit Provider Nurse Practitioner Family | DX: K64.8 Other hemorrhoids (principal); K21.9 Gastro-esophageal reflux disease without esophagitis; K59.00 Constipation, unspecified; R14.0 Abdominal distension (gaseous); Z87.19 Personal history of other diseases of the digestive system | CPT/HCPCS: 99212 ==

== ENCOUNTER 2021-09-22 09:20 | Outpatient (REF) | payer OTHER, SELFPAY ==
--- NOTE | ~2021-09-22 | CT_ITS ---
EXAMINATION: CT ABDOMEN AND PELVIS WITH CONTRAST CLINICAL INFORMATION: Esophageal cancer COMPARISON: Previous CT scans most recent November 2020 TECHNIQUE: Multidetector volumetric images were obtained from the superior aspect of the liver through the pubic symphysis following administration 85 mL of Omnipaque 350 intravenous contrast. Sagittal and coronal reformatted images were obtained on the technologist's workstation. Oral contrast: Yes This CT examination was performed using dose optimization techniques as appropriate, variously including the following: *Automated exposure control *Adjustment of mA and/or kV according to patient size (this includes techniques or standardized protocols for targeted exams where dose is matched to indication/reason for exam; i.e. extremities or head) *Use of iterative reconstruction technique DLP: 511 mGy-cm FINDINGS: LUNG BASES: There are 2 small calcified left lower lobe pulmonary nodules and calcification along the left diaphragmatic pleural surface that is stable. The lung bases are otherwise clear. LIVER, GALLBLADDER, AND BILIARY TREE: The liver is normal in size, shape, and attenuation. There is a small 4 mm low-attenuation lesion in the posterior segment of the right lobe of the liver, axial image 27 series 3. This is similar to previous exams. No other focal hepatic lesion or biliary ductal dilatation is present. The gallbladder is unremarkable with no evidence of radiopaque gallstones, gallbladder wall thickening, or obvious pericholecystic inflammatory changes. PANCREAS: Unremarkable. SPLEEN: Unremarkable. ADRENAL GLANDS: Unremarkable. KIDNEYS AND URETERS: The kidneys are normal in size, shape, and attenuation. No hydronephrosis, hydroureter, or calculi seen. No perinephric stranding. BLADDER: Unremarkable GASTROINTESTINAL TRACT: The small and large bowel are unremarkable. The appendix is unremarkable. ABDOMINAL WALL: There is a small umbilical hernia containing fat. There are small bilateral inguinal hernias containing fat. LYMPH NODES: Normal. VASCULAR: Unremarkable. PELVIC VISCERA: The prostate gland is slightly enlarged measuring 4.5 x 5.0 cm in AP and transverse dimension. OSSEOUS STRUCTURES: There are degenerative changes of the spine. CT/CT abdomen pelvis w con IMPRESSION: Stable small 4 mm low-attenuation lesion in the right lobe of the liver from prior exams. Slightly enlarged prostate gland. Fleischner guidelines were followed.
[2021-09-22] MEDS: iohexoL 300 MG/ML 100 ML INFUS..BTL IV (12:39)
[2021-09-22] MEDS: Barium Sulfate Oral (Berry) 450 ML ORAL.SUSP 900 ML PO (12:39)
== END 2021-09-22 09:21 | disposition home or self-care (01) ==
LOC: HO.CT 09:20
PROVIDERS: Visit Provider Internal Medicine
DX: R59.0 Localized enlarged lymph nodes (principal); R60.0 Localized edema; Z87.891 Personal history of nicotine dependence
CPT/HCPCS: 74177; Q9967

== ENCOUNTER → 2021-12-17 08:25 | Outpatient (BNVA) | payer OTHER, SELFPAY | PROVIDERS: PCP Internal Medicine; Referring Provider Internal Medicine; Visit Provider Nurse Practitioner Family | DX: K21.9 Gastro-esophageal reflux disease without esophagitis (principal); K64.8 Other hemorrhoids | CPT/HCPCS: 99212 ==

== ENCOUNTER 2023-06-19 10:24 | Outpatient (REF) | payer OTHER, SELFPAY ==
[2023-06-19 11:21] LABS: MANUAL DIFF FLAG NO
[2023-06-19 12:07] LABS: Basophils Percent Auto 0.2 % (0-2); Eosinophils Absolute Auto 0.2 X10*3/uL (0.0-0.4); Eosinophils Percent Auto 2.9 % (0-4); Hemoglobin 13.9 g/dl (14.0-18.0); Imm Gran Abs Auto 0.05 X10*3/uL (0.00-0.03); Imm Gran Pct Auto 0.8 % (0.0-0.4); Lymphocytes Absolute Auto 2.2 X10*3/uL (1.2-4.9); Lymphocytes Percent Auto 33.7 % (20-40); Mean Corpuscular HGB Conc 33.9 g/dl (31.0-36.0); Mean Corpuscular Hemoglobin 29.3 pg (27.0-33.0); Mean Corpuscular Volume 86.5 fL (80.0-98.0); Mean Platelet Volume 11.2 fL (9.4-12.4); Monocytes Absolute Auto 0.6 X10*3/uL (0.1-1.2); Monocytes Percent Auto 9.5 % (2-11); Neutrophils Absolute Auto 3.5 x10*3/uL (2.0-8.3); Neutrophils Percent Auto 52.9 % (45-73); Platelet Count 203 X10*3/uL (160-400); Red Blood Count 4.74 X10*6/uL (4.60-5.80); Red Cell Distribution Width 13.4 % (11.0-16.0); White Blood Count 6.6 X10*3/uL (4.8-10.8)
[2023-06-19 12:34] LABS: Alanine Aminotransferase 34 U/L (0-40); Albumin Level 4.1 g/dL (3.5-5.0); Alkaline Phosphatase 60 U/L (39-117); Anion Gap 9 (12-20); Aspartate Amino Transferase 22 U/L (5-37); Bilirubin Total 0.4 mg/dL (0.0-1.0); Blood Urea Nitrogen 14 mg/dL (9-16); Calcium 9.1 mg/dL (8.4-10.2); Carbon Dioxide 26 mmol/L (22-29); Chloride 108 mmol/L (96-108); Estimated Glomerular Filt Rate > 60; Glucose Random 102 mg/dL (60-115); Potassium 4.7 mmol/L (3.3-5.1); Sodium 138 mmol/L (135-145); Total Protein 7.2 g/dL (6.5-8.0)
[2023-06-19 12:53] LABS: Cholesterol 151 mg/dL (<200); HDL Cholesterol 31 mg/dL (>40); LDL Cholesterol Calculated 96 mg/dL (<100); Triglycerides 121 mg/dL (<150)
[2023-06-19 13:40] LABS: Reflex LDLD? No
== END 2023-06-19 10:25 | disposition home or self-care (01) ==
LOC: HO.HHCL 10:24
PROVIDERS: Visit Provider Internal Medicine
DX: I10 Essential (primary) hypertension (principal); I25.10 Atherosclerotic heart disease of native coronary artery without angina pectoris; D50.9 Iron deficiency anemia, unspecified
CPT/HCPCS: 36415; 80053; 80061; 85025

== ENCOUNTER 2023-08-21 11:58 | Outpatient (REF) | payer OTHER, SELFPAY ==
--- NOTE | ~2023-08-21 | XR_ITS ---
EXAMINATION: XR CERVICAL SPINE CLINICAL INFORMATION: Cervical spondylosis. COMPARISON: None available. TECHNIQUE: Frontal, odontoid, bilateral oblique, lateral and swimmer's views of the cervical spine were obtained. FINDINGS: Vertebral body heights and alignment are normal. The disc spaces are well-maintained. There is multi-level cervical spondylosis, most pronounced at C2-C3 and C6-C7. No acute fracture or spondylolisthesis is seen. The posterior elements are intact. There is mild right neural foraminal narrowing at C5-C6, and mild left neural foraminal narrowing is seen at C3-C4. There is no prevertebral soft tissue swelling. The dens and C7-T1 interface are normal. XR/XR cervical spine 3V IMPRESSION: 1. No acute fracture or spondylolisthesis is seen. 2. The cervical disc spaces are well-maintained. 3. There is multi-level cervical spondylosis. 4. There is mild right neural foraminal narrowing at C5-C6, and mild left neural foraminal narrowing is seen at C3-C4.
== END 2023-08-21 11:59 | disposition home or self-care (01) ==
LOC: HO.XRAY 11:58
PROVIDERS: Visit Provider Psychiatry & Neurology Neurology
DX: Z13.89 Encounter for screening for other disorder (principal)
CPT/HCPCS: 72040

== ENCOUNTER 2023-09-12 15:39 | Outpatient (REF) | payer OTHER, SELFPAY ==
[2023-09-12 17:36] LABS: Uric Acid 3.2 mg/dL (3.4-7.0)
== END 2023-09-12 15:40 | disposition home or self-care (01) ==
LOC: HO.HHCL 15:39
PROVIDERS: Visit Provider Internal Medicine
DX: M25.572 Pain in left ankle and joints of left foot (principal); G89.29 Other chronic pain
CPT/HCPCS: 36415; 84550

== ENCOUNTER 2023-10-10 17:54 | Outpatient (REF) | payer OTHER, SELFPAY ==
--- NOTE | ~2023-10-10 | MR_ITS ---
MR CERVICAL SPINE WITHOUT CONTRAST CLINICAL INFORMATION: Severe neck pain. COMPARISON: Cervical spine radiographs 08/21/2023 and cervical spine MRI 04/25/2020 TECHNIQUE: MRI of the cervical spine was obtained using routine sequences without contrast. FINDINGS: Cervical alignment is normal. The vertebral body heights are maintained. Disc volumes are preserved. There is no bone marrow edema. There are no acute fractures. Craniocervical junction is unremarkable. Cervical arterial flow voids are preserved. There are no significant extraspinal soft tissue findings. There are no cord signal changes. C2-C3: Uncovertebral joint spurring and facet arthropathy result in mild to moderate right and mild left foraminal stenosis. A shallow left paracentral disc protrusion mildly narrows the central canal. Findings are similar to the prior study. C3-C4: A broad-based central disc protrusion results in worsening moderate to severe central canal stenosis and flattening of the cervical cord. Uncovertebral joint hypertrophy and hypertrophic facet arthropathy result in mild to moderate right and mild left foraminal stenosis. C4-C5: Diffuse annular disc bulge flattens the ventral cord resulting in similar moderate central canal stenosis. Advanced uncovertebral joint hypertrophy and hypertrophic facet arthropathy result in similar severe right-sided foraminal stenosis. C5-C6: A broad-based central disc protrusion and ligamentum flavum thickening result in worsening moderate to severe central canal stenosis and flattening of the cervical cord. Advanced uncovertebral joint hypertrophy and hypertrophic facet arthropathy result in similar severe right and mild to moderate left foraminal stenosis. C6-C7: A shallow left paracentral disc protrusion and ligamentum flavum thickening result in slightly worsening mild to moderate central canal stenosis. Uncovertebral joint spurring and facet arthropathy result in similar severe left-sided foraminal stenosis. C7-T1: Disc contour is normal. There is no central canal stenosis and there is no foraminal stenosis. MR/MR cervical spine wo con IMPRESSION: Progressive cervical spondylosis with spondylitic changes resulting in worsening moderate to severe central canal stenosis at C3-C4 and C5-C6. Similar moderate central canal stenosis at C4-C5 and slightly worsening mild to moderate central canal stenosis at C6-C7. Varying degrees of moderate to severe foraminal stenosis throughout the cervical spine again noted.
== END 2023-10-10 17:55 | disposition home or self-care (01) ==
LOC: HO.MRI 17:54
PROVIDERS: PCP Internal Medicine; Visit Provider Internal Medicine
DX: M54.2 Cervicalgia (principal); G89.29 Other chronic pain
CPT/HCPCS: 72141

== ENCOUNTER 2024-03-12 09:15 | Outpatient (REF) | payer MEDICARE, MEDICAID, SELFPAY ==
--- NOTE | ~2024-03-12 | MR_ITS ---
EXAMINATION: MR OF THE LEFT FEMUR WITHOUT AND WITH CONTRAST MR OF THE LOWER LEG WITHOUT AND WITH CONTRAST CLINICAL INFORMATION: Painful mass. Patient reports mass near groin and lateral left hip 2 years. Pain and numbness radiating through left leg into foot. COMPARISON: CT scan of the abdomen and pelvis August 2021. X-ray of the pelvis and left hip August 2021. TECHNIQUE: MRI of the left femur is performed without and with contrast. MRI of the left lower leg is performed without and with contrast. Contrast dose: 10 mL of Gadavist given intravenously utilized during both exams. Skin marker placed in the posterior aspect of the left lower leg in the area of reported abnormality directed by the patient. FINDINGS: LEFT FEMUR/THIGH: The exam is slightly limited because of some motion-degrading artifact as well as heterogeneous fat suppression. SUBCUTANEOUS SOFT TISSUES: Normal. No mass or abnormal enhancement. Multiple small lymph nodes noted in the inguinal region likely reactive, largest measuring 13 mm transverse. BONE/CARTILAGE: Femur: Unremarkable. Left Hip Joint: Evaluation is limited given the large [id number]. There is at least mild osteoarthritis of the hip joint with subchondral cystic change noted along the anterior superior aspect of the acetabulum, likely unchanged compared with prior CT August 2021. Left Knee Joint: Limited evaluation due to fat suppression and [id number] only partially including the left knee joint. Possible mild arthrosis of the patellofemoral joint. NEUROVASCULAR STRUCTURES: Normal. No masses or abnormal enhancement. miscellaneous: Right femur/ right thigh was also included on the long axis coronal images. Mild osteoarthritis of the right hip joint with subchondral cystic change along the anterior superior acetabulum, similar to that noted on the left. The remaining bone and soft tissues are unremarkable. LEFT LOWER LEG: SUBCUTANEOUS SOFT TISSUES: Normal. MUSCLES/TENDONS: Normal. NEUROVASCULAR STRUCTURES: Normal. BONE: Normal. No lymphadenopathy. No abnormal enhancement. MR/MR lower leg LT wo/w con IMPRESSION: LEFT FEMUR: 1. No mass or abnormal enhancement. 2. Multiple small lymph nodes in the region of the left thigh likely reactive. 3. Mild osteoarthritis of the left hip, unchanged compared with prior CT August 2021. 4. Incidental note made of mild osteoarthritis of the right hip, unchanged compared with prior CT August 2021. 5. Limited evaluation of the left knee joint. Possible mild arthrosis of the patellofemoral joint. LEFT LOWER LE. No mass or other abnormality. 2. No lymphadenopathy.
--- NOTE | ~2024-03-12 | MR_ITS ---
EXAMINATION: MR OF THE LEFT FEMUR WITHOUT AND WITH CONTRAST MR OF THE LOWER LEG WITHOUT AND WITH CONTRAST CLINICAL INFORMATION: Painful mass. Patient reports mass near groin and lateral left hip 2 years. Pain and numbness radiating through left leg into foot. COMPARISON: CT scan of the abdomen and pelvis August 2021. X-ray of the pelvis and left hip August 2021. TECHNIQUE: MRI of the left femur is performed without and with contrast. MRI of the left lower leg is performed without and with contrast. Contrast dose: 10 mL of Gadavist given intravenously utilized during both exams. Skin marker placed in the posterior aspect of the left lower leg in the area of reported abnormality directed by the patient. FINDINGS: LEFT FEMUR/THIGH: The exam is slightly limited because of some motion-degrading artifact as well as heterogeneous fat suppression. SUBCUTANEOUS SOFT TISSUES: Normal. No mass or abnormal enhancement. Multiple small lymph nodes noted in the inguinal region likely reactive, largest measuring 13 mm transverse. BONE/CARTILAGE: Femur: Unremarkable. Left Hip Joint: Evaluation is limited given the large [id number]. There is at least mild osteoarthritis of the hip joint with subchondral cystic change noted along the anterior superior aspect of the acetabulum, likely unchanged compared with prior CT August 2021. Left Knee Joint: Limited evaluation due to fat suppression and [id number] only partially including the left knee joint. Possible mild arthrosis of the patellofemoral joint. NEUROVASCULAR STRUCTURES: Normal. No masses or abnormal enhancement. miscellaneous: Right femur/ right thigh was also included on the long axis coronal images. Mild osteoarthritis of the right hip joint with subchondral cystic change along the anterior superior acetabulum, similar to that noted on the left. The remaining bone and soft tissues are unremarkable. LEFT LOWER LEG: SUBCUTANEOUS SOFT TISSUES: Normal. MUSCLES/TENDONS: Normal. NEUROVASCULAR STRUCTURES: Normal. BONE: Normal. No lymphadenopathy. No abnormal enhancement. MR/MR femur LT wo/w con IMPRESSION: LEFT FEMUR: 1. No mass or abnormal enhancement. 2. Multiple small lymph nodes in the region of the left thigh likely reactive. 3. Mild osteoarthritis of the left hip, unchanged compared with prior CT August 2021. 4. Incidental note made of mild osteoarthritis of the right hip, unchanged compared with prior CT August 2021. 5. Limited evaluation of the left knee joint. Possible mild arthrosis of the patellofemoral joint. LEFT LOWER LE. No mass or other abnormality. 2. No lymphadenopathy.
[2024-03-12] MEDS: gadobutroL 10 ML VIAL IVPUSH (11:07)
== END 2024-03-12 09:16 | disposition home or self-care (01) ==
LOC: HO.MRI 09:15
PROVIDERS: PCP Internal Medicine; Visit Provider Internal Medicine
DX: M79.605 Pain in left leg (principal); R22.42 Localized swelling, mass and lump, left lower limb
CPT/HCPCS: 73720; A9585

== ENCOUNTER 2024-05-06 09:41 | Outpatient (REF) | payer OTHER, SELFPAY ==
[2024-05-06 11:31] LABS: Prostate Specific Antigen Scr 0.43 ng/mL (<0.05-4.0)
[2024-05-06 12:08] LABS: Alanine Aminotransferase 41 U/L (0-40); Albumin Level 4.2 g/dL (3.5-5.0); Alkaline Phosphatase 60 U/L (39-117); Anion Gap 11 (12-20); Aspartate Amino Transferase 26 U/L (5-37); Bilirubin Total 0.5 mg/dL (0.0-1.0); Blood Urea Nitrogen 14 mg/dL (9-16); Carbon Dioxide 24 mmol/L (22-29); Chloride 108 mmol/L (96-108); Cholesterol 147 mg/dL (<200); Estimated Glomerular Filt Rate > 60; Glucose Random 119 mg/dL (60-115); HDL Cholesterol 29 mg/dL (>40); LDL Cholesterol Calculated 93 mg/dL (<100); Potassium 4.1 mmol/L (3.3-5.1); Sodium 139 mmol/L (135-145); Total Protein 7.2 g/dL (6.5-8.0); Triglycerides 128 mg/dL (<150)
== END 2024-05-06 09:42 | disposition home or self-care (01) ==
LOC: HO.HHCL 09:41
PROVIDERS: Visit Provider Internal Medicine
DX: Z00.00 Encounter for general adult medical examination without abnormal findings (principal); I10 Essential (primary) hypertension; Z12.5 Encounter for screening for malignant neoplasm of prostate
CPT/HCPCS: 36415; 80053; 80061; 84153

== ENCOUNTER 2025-04-09 10:02 | Emergency (ER) | payer OTHER, SELFPAY ==
--- NOTE | ~2025-04-09 | CT_ITS ---
EXAMINATION: CT ABDOMEN PELVIS WITHOUT IV CONTRAST HISTORY: L flank pain COMPARISON: Comparison is made with the prior examination dated 09/22/2021. TECHNIQUE: CT scan of the abdomen and pelvis was performed without contrast using standard departmental protocol. Coronal and sagittal reformatted images were generated and reviewed. Oral contrast material was not administered per department protocol. This CT exam was performed with one or more of the following dose reduction techniques: automated exposure control, adjustment of the mA and/or kV according to patient size, use of iterative reconstruction technique. DLP: 651 mGy-cm FINDINGS: LOWER CHEST: The visualized lung bases are clear. There is no pleural effusion. CARDIOVASCULATURE: The heart is normal in size. There is no pericardial effusion. LIVER: The liver is normal in size and contour. Again seen is a tiny nonspecific 3-4 mm hypodensity in the posterior segment of the right lobe. GALLBLADDER / BILE DUCTS: The gallbladder is unremarkable. There is no intra or extrahepatic biliary ductal dilatation. SPLEEN: The spleen is normal in size and has an unremarkable unenhanced appearance. PANCREAS: The pancreas has an unremarkable unenhanced appearance. ADRENAL GLANDS: Unremarkable. KIDNEYS/RETROPERITONEUM: No renal or ureteral calculi are identified. There is no hydronephrosis or hydroureter. LYMPH NODES: No retroperitoneal lymphadenopathy is identified in the abdomen or pelvis. VASCULATURE: The abdominal aorta demonstrates atherosclerotic calcification, but is normal in caliber. MESENTERY/PERITONEUM: No free fluid. No masses. There is no free intraperitoneal gas. STOMACH: There is a large amount of debris in the stomach. SMALL BOWEL: The small bowel is normal in caliber. COLON: The colon is unremarkable. APPENDIX: Normal. URINARY BLADDER/PELVIC ORGANS: The urinary bladder is unremarkable. The prostate is mildly enlarged. BONES / SOFT TISSUES: There is a tiny fat-containing umbilical hernia. The bones are intact. CT/CT abdomen pelvis wo IV con IMPRESSION: No evidence of nephrolithiasis or ureteral obstruction. Electronically signed by: Regis Conway MD 04/09/2025 12:11 PM EDT
--- NOTE | ~2025-04-09 | US_ITS ---
EXAMINATION: US TRIPLEX LOWER EXTREMITY, LEFT CLINICAL INFORMATION: Left lower extremity pain and edema COMPARISON: 06/29/2021 TECHNIQUE: Color-flow triplex imaging with spectral analysis and compression Doppler were performed on the left lower extremity. FINDINGS: Multiple normal echotexture lymph nodes with a fatty hilum are imaged in the left inguinal region. Respiratory variation, normal compression and augmented flow are noted throughout the left lower extremity. Respiratory variability in the left common femoral vein is moderately attenuated, but unchanged from the prior. The visualized common femoral vein, superficial femoral vein, profunda femoral vein, popliteal vein and midcalf peroneal and posterior tibial venous segments show no evidence of deep venous thrombosis. US/US venous duplex LE LT IMPRESSION: No evidence of deep venous thrombosis involving the left lower extremity. Electronically signed by: Mohsen Hensley MD 04/09/2025 11:57 AM EDT
[2025-04-09 10:51] VITALS: BP 138/62; PULSE 74; RESP 18; TEMP 36.7; O2SAT 99; BMI 32.5
--- NOTE | 2025-04-09 10:52 | ED_ITS ---
HPI - Abdominal Pain General Chief Complaint: Abdominal Pain Stated Complaint: leg pain Time Seen by Provider: 04/09/25 13:00 Source: patient Mode of arrival: ambulatory Limitations: no limitations History of Present Illness ED Provider: Jm Lewis HPI narrative: 59-year-old male history of high cholesterol cholesterol presents to ED for back pain radiating down left leg abd abdominal pain for years. Patient takes left leg swollen. Patient denies any chest pain, shortness of breath, dysuria hematuria. Patient denies any recent trauma. Patient denies any urinary/bowel incontinence. Patient denies any history of IV drug use or immunocompromise diseases. Related Data Home Medications ?Medication ?Instructions ?Recorded ?Confirmed atorvastatin 40 mg tablet 40 mg PO BEDTIME 12/09/20 06/06/22 clopidogrel 75 mg tablet (Plavix) 75 mg PO DAILY 12/09/20 06/06/22 aspirin 81 mg chewable tablet 1 tab PO DAILY 08/16/21 06/06/22 lisinopril 20 mg tablet 20 mg PO QAM 08/16/21 06/06/22 metoprolol succinate 50 mg 50 mg PO DAILY 08/16/21 06/06/22 tablet,extended release 24 hr (Toprol XL) zolpidem 10 mg tablet 10 mg PO BEDTIME PRN insomnia 08/16/21 06/06/22 Previous Rx's ?Medication ?Instructions ?Recorded cephalexin 500 mg capsule 500 mg PO QID 10 days #40 caps 06/18/21 doxycycline monohydrate 100 mg 100 mg PO BID 10 days #20 caps 06/18/21 capsule oxycodone-acetaminophen 5 mg-325 1 tab PO Q6H PRN pain #10 tabs 06/18/21 mg tablet (Percocet) hydrocortisone 2.5 % topical cream 1 appl FL BID-QID PRN hemorrhoids 09/17/21 with perineal applicator #30 grams (Proctosol HC) pantoprazole 40 mg tablet,delayed 40 mg PO DAILY #30 tabs 09/17/21 release sennosides 8.6 mg tablet (Natural 8.6 mg PO BEDTIME constipation #30 09/17/21 Senna Laxative) tabs docusate sodium 100 mg capsule 100 mg PO BEDTIME #90 caps 12/17/21 ferrous fumarate 200 mg (65 mg 1 tab PO BID #60 tabs 12/17/24 iron)-vit C 25 mg tablet,extend release (Nenita-Sequels (iron-vit c)) acetaminophen 325 mg capsule 325 mg PO QID PRN pain #28 caps 04/09/25 cyclobenzaprine 10 mg tablet 10 mg PO TID PRN muscle spasm #15 04/09/25 tabs prednisone 20 mg tablet 40 mg (2 x 20 mg) PO DAILY 5 days 04/09/25 #10 tabs Allergies Allergy/AdvReac Type Severity Reaction Status Date / Time No Known Allergies Allergy Verified 04/09/25 10:52 [No Known Allergies*] Review of Systems Review of Systems back pain, left leg pain/swelling, abdominal pain Yes all other systems are reviewed and are negative [facility] Past Medical History Medical History (Updated 04/10/25 @ 00:00 by Med Caputo) Bleeding hemorrhoids Internal hemorrhoids GERD (gastroesophageal reflux disease) Surgical History Hx of CABG Hx of colonoscopy Hx of transurethral resection of prostate Social History Social History (Updated 06/06/22 @ 10:02 by Lady Thao [facility]) Household Members: Spouse Housing: House Alcohol intake: unknown Patient Tobacco Use Status: Never used Tobacco service: No Current occupational status: disabled Physical Exam ED Vital Signs: Vital Signs - 24 hr 04/09/25 10:51 Temperature 98.0 F Pulse Rate 74 Respiratory Rate 18 Blood Pressure 138/62 Pulse Oximetry 99 Oxygen Delivery Method Room Air BMI result Body Mass Index 32.5 Const General: cooperative, healthy appearing, comfortable, no acute distress, well developed, alert, awake and Physically active Orientation/consciousness: patient oriented x3 HENMT Head: Yes normal to inspection, Yes No palpable skull fracture present, Yes normocephalic and Yes atraumatic Eyes General: appearance normal, both eyes and all related structures Neck Neck: Yes normal visual inspection, Yes full ROM, Yes no lymphadenopathy, Yes no meningeal signs, Yes trachea midline, Yes supple, No anterior neck swelling and No tender Chest Chest palpation & inspection: normal inspection of the chest and normal palpation of entire chest wall Resp Effort & Inspection: normal respiratory effort and able to speak in complete sentences Auscultation: clear to auscultation bilaterally Cardio Jugular venous distension: no JVD Heart sounds: S1 normal heart sound present and S2 normal heart sound present GI Inspection: Yes normal to inspection Palpation (GI): Soft to palpation, not firm, nontender, no guarding and not rigid General: Yes no CVA tenderness Back/Spine/Pelvis Back: no CVA tenderness and No back tenderness Skin General skin exam: no rashes or lesions noted, elasticity normal and turgor normal Neuro General: patient oriented x3, gait normal, tone normal, moves all extremities, Normal light touch and pain sensation, no meningeal signs, no focal motor deficits, CN's II-XI intact bilaterally and normal sensation to monofilament Extrem Other: Bilateral lower extremity negative for swelling, pitting edema, redness, or calf tenderness General: Yes normal to inspection, Yes full ROM and Yes capillary refill normal Psych Appearance: grossly normal, well kempt and not disheveled Course Course Course Narrative: 59 yo male with PMH of anemia, hemorrhoids, CAD, HTN, HLD, GERD here with c/o L leg pain for a while but worse since Monday and leg is swollen. He also c/o low abdominal pain and L flank pain with pain into the rectum since Monday. No trauma. No fevers, n/v/d, dysuria. He has some chills. At this time will obtain labs, UA, CT scan for renal colic, DVT study of L leg. this is a RAPID medical screening exam the rest of the history and physical exam is to be done by the main provider. ASHLY 1054am Medical Decision Making Medical Decision Making [facility] Narrative: 59-year-old male presents ED with multiple complaints. Patient well-appearing. EKG troponin negative. Abdominal CT scan is benign. Ultrasound of lower extremity negative for any DVT. Patient explained worrisome signs and informed to return to the ED immediately. Not suspecting PE, sepsis, epidural abscess, cauda equinus syndrome, peritonitis, osteomyelitis, or any other life- threatening etiology. Patient explained worrisome signs and informed to return to the ED immediately. EKG negative STEMI Differential Diagnosis Differential Diagnoses: The differential diagnosis associated with the presentation includes (Kidney stones, lumbar radiculopathy, DVT) Admission/Observation Consideration of admission/observation: Escalation of care including admission/observation considered Lab Data [facility] Lab Attestation statement: I reviewed the patient's lab results. 04/09/25 11:13 04/09/25 11:13 Labs: Lab Results 04/09/25 04/09/25 Range/Units 11:13 11:24 WBC 5.4 (4.8-10.8) X10*3/uL RBC 4.95 (4.60-5.80) X10*6/uL Hgb 14.3 (14.0-18.0) g/dl Hct 41.3 L (42.0-52.0) % MCV 83.4 (80.0-98.0) fL MCH 28.9 (27.0-33.0) pg MCHC 34.6 (31.0-36.0) g/dl RDW 13.6 (11.0-16.0) % Plt Count 220 (160-400) X10*3/uL MPV 10.6 (9.4-12.4) fL Immature Gran % (Auto) 0.6 H (0.0-0.4) % Neut % (Auto) 53.0 (45-73) % Lymph % (Auto) 35.4 (20-40) % [place] % (Auto) 7.4 (2-11) % Eos % (Auto) 3.0 (0-4) % Baso % (Auto) 0.6 (0-2) % Lymph # (Auto) 1.9 (1.2-4.9) X10*3/uL [place] # (Auto) 0.4 (0.1-1.2) X10*3/uL Eos # (Auto) 0.2 (0.0-0.4) X10*3/uL Baso # (Auto) 0.0 (0.0-0.2) X10*3/uL Abs Immat Gran (auto) 0.03 (0.00-0.03) X10*3/uL Absolute Neuts (auto) 2.9 (2.0-8.3) x10*3/uL Absolute Nucleated RBC 0.000 (0.0-0.012) X10*3/uL Nucleated RBC % (auto) 0.0 (0.0-0.2) /100WBC VBG pH 7.37 (7.32-7.43) VBG pCO2 43 mmHg VBG pO2 57 mmHg VBG HCO3 25 (22-26) mmol/L VBG O2 Saturation 84.0 % VBG Base Excess -0.1 mmol/L Sodium 135 (135-145) mmol/L Potassium 4.1 (3.3-5.1) mmol/L Chloride 106 (96-108) mmol/L Carbon Dioxide 25 (22-29) mmol/L Anion Gap 8 L (12-20) BUN 11 (9-16) mg/dL Creatinine 0.92 (0.5-1.4) mg/dL Estim Creat Clear Calc 89.2 Estimated GFR > 60 Random Glucose 136 H (60-115) mg/dL Calcium 9.2 (8.4-10.2) mg/dL Magnesium 2.2 (1.6-2.6) mg/dL Total Bilirubin 0.4 (0.0-1.0) mg/dL Direct Bilirubin 0.2 (0.0-0.5) mg/dL AST 30 (5-37) U/L ALT 52 H (0-40) U/L Alkaline Phosphatase 63 (39-117) U/L Troponin I High Sens < 2.7 (<3.5-35.0) ng/L Total Protein 7.3 (6.5-8.0) g/dL Albumin 4.6 (3.5-5.0) g/dL Lipase 14 (8-78) U/L Independent Interpretation I performed an independent interpretation of an: EKG (Negative STEMI) Independent Historian Clinical information obtained from an independent historian. History obtained from or confirmed by: Other (Patient) External Record Review External record reviewed: Other Prescription Management I considered prescription management with: Pain Medication Discharge Plan Discharge Clinical Impression: Leg pain, Abdominal pain, Back pain Patient Disposition: Home, Self-Care Instructions: Abdominal Pain (ED), Back Pain (ED), Leg Pain (ED) Additional Instructions: Your labs came back reassuring. Cat scan negative for any life-threatening or acute etiology. Ultrasound lower extremity negative for DVT. If you continue to have this chronic pain recommend follow up with the primary care provider who she referred to physical therapy and other specialists possibly Rheumatology, orthopedics, or vascular. Return to the ED immediately for any chest pain, shortness of breath, coughing up blood, worsening abdominal pain, calf pain, fever, chills, blood in urine, blood in stool, flank pain, testicular pain, or any other concerning symptoms. Prescriptions: New prednisone 20 mg tablet 40 mg PO DAILY 5 Days Qty: 10 0RF cyclobenzaprine 10 mg tablet 10 mg PO TID PRN (Reason: muscle spasm) Qty: 15 0RF Rx Instructions: side effect is drowsiness. Do not take at work or while driving acetaminophen 325 mg capsule 325 mg PO QID PRN (Reason: pain) Qty: 28 0RF No Action Nenita-Sequels (iron-vit c) 200 mg (65 mg iron)-25 mg Tablet Extended Release 1 tab PO BID Qty: 60 6RF doxycycline monohydrate 100 mg capsule 100 mg PO BID 10 Days Qty: 20 0RF cephalexin 500 mg capsule 500 mg PO QID 10 Days Qty: 40 0RF oxycodone-acetaminophen [Percocet] 5-325 mg tablet 1 tab PO Q6H PRN (Reason: pain) Qty: 10 0RF lisinopril 20 mg tablet 20 mg PO QAM metoprolol succinate [Toprol XL] 50 mg tablet extended release 24 hr 50 mg PO DAILY zolpidem 10 mg tablet 10 mg PO BEDTIME PRN (Reason: insomnia) aspirin 81 mg tablet,chewable 1 tab PO DAILY clopidogrel [Plavix] 75 mg tablet 75 mg PO DAILY atorvastatin 40 mg tablet 40 mg PO BEDTIME pantoprazole 40 mg tablet,delayed release (DR/EC) 40 mg PO DAILY Qty: 30 4RF hydrocortisone [Proctosol HC] 2.5 % cream with perineal applicator 1 appl FL BID-QID PRN (Reason: hemorrhoids) Qty: 30 2RF sennosides [Natural Senna Laxative] 8.6 mg tablet 8.6 mg PO BEDTIME Qty: 30 3RF docusate sodium 100 mg capsule 100 mg PO BEDTIME Qty: 90 5RF Referrals: [facility] Orthopedic Surgeons [Provider Group] (Chronic back pain) [facility] Vascular Services [Provider Group] (Chronic leg pain/swelling) Chris Phoenix MD [Primary Care Provider] - (Chronic leg pain, abdominal pain, or back pain.) Stand Alone Forms: Work/School Release Interventions: ED Discharge Assessment Last Done: 04/09/25 13:54 Discharge Date/Time: 04/09/25 13:57 Print Language: Urdu
--- NOTE | 2025-04-09 10:53 | ECG_ITS ---
Test Reason : abd pain Blood Pressure : */* mmHG Vent. Rate : 64 BPM Atrial Rate : 64 BPM P-R Int : 158 ms QRS Dur : 84 ms QT Int : 378 ms P-R-T Axes : 35 -11 57 degrees QTcB Int : 389 ms Normal sinus rhythm Inferior infarct (cited on or before 27-Feb-2015) Abnormal ECG When compared with ECG of 03-Sep-2021 13:06, No significant change was found Referred By: Khushboo Morrison Electronically Signed By: CANDY JOHNSTON MD
[2025-04-09 11:23] LABS: MANUAL DIFF FLAG NO
[2025-04-09 11:27] LABS: Basophils Percent Auto 0.6 % (0-2); Eosinophils Absolute Auto 0.2 X10*3/uL (0.0-0.4); Hematocrit 41.3 % (42.0-52.0); Hemoglobin 14.3 g/dl (14.0-18.0); Imm Gran Abs Auto 0.03 X10*3/uL (0.00-0.03); Imm Gran Pct Auto 0.6 % (0.0-0.4); Lymphocytes Absolute Auto 1.9 X10*3/uL (1.2-4.9); Lymphocytes Percent Auto 35.4 % (20-40); Mean Corpuscular HGB Conc 34.6 g/dl (31.0-36.0); Mean Corpuscular Hemoglobin 28.9 pg (27.0-33.0); Mean Corpuscular Volume 83.4 fL (80.0-98.0); Mean Platelet Volume 10.6 fL (9.4-12.4); Monocytes Absolute Auto 0.4 X10*3/uL (0.1-1.2); Monocytes Percent Auto 7.4 % (2-11); Neutrophils Absolute Auto 2.9 x10*3/uL (2.0-8.3); Platelet Count 220 X10*3/uL (160-400); Red Blood Count 4.95 X10*6/uL (4.60-5.80); Red Cell Distribution Width 13.6 % (11.0-16.0); White Blood Count 5.4 X10*3/uL (4.8-10.8)
[2025-04-09 11:28] LABS: VBG Base Excess -0.1 mmol/L; VBG HCO3 25 mmol/L (22-26); VBG pCO2 43 mmHg; VBG pH 7.37 (7.32-7.43); VBG pO2 57 mmHg
[2025-04-09 11:29] LABS: Venous Blood Gas Refer to POC result
[2025-04-09 11:40] LABS: Alanine Aminotransferase 52 U/L (0-40); Albumin Level 4.6 g/dL (3.5-5.0); Alkaline Phosphatase 63 U/L (39-117); Anion Gap 8 (12-20); Aspartate Amino Transferase 30 U/L (5-37); Bilirubin Direct 0.2 mg/dL (0.0-0.5); Bilirubin Total 0.4 mg/dL (0.0-1.0); Blood Urea Nitrogen 11 mg/dL (9-16); Calcium 9.2 mg/dL (8.4-10.2); Carbon Dioxide 25 mmol/L (22-29); Chloride 106 mmol/L (96-108); Creatinine Clr Calc Pharmacy 89.2; Estimated Glomerular Filt Rate > 60; Glucose Random 136 mg/dL (60-115); Lipase 14 U/L (8-78); Magnesium 2.2 mg/dL (1.6-2.6); Potassium 4.1 mmol/L (3.3-5.1); Sodium 135 mmol/L (135-145); Total Protein 7.3 g/dL (6.5-8.0)
[2025-04-09 11:48] LABS: Troponin-I High Sensitivity < 2.7 ng/L (<3.5-35.0)
[2025-04-09 13:54] VITALS: BP 138/62; PULSE 74; RESP 18; TEMP 36.7; O2SAT 99
--- OUTSIDE RECORDS SUMMARY | 2025-04-09 15:52 | XMS_ITS | Encounter Summary ---
Author Organization [employer] Address [address] [place] [address] Care Team Providers Care Stockkeeper Name Role Phone Chris Sarah MD Primary Care Provide r Reason for Visit * Reason Comments Med Refill Encounter Details Date Type Department Care Team ([facility] st Contact Info) Description 10/10/2024 Refill [facility] MEDICINE [address] [place] [address] Chris Sarah MD [address] [place] [address] Social History Tobacco Use Types Packs/Day Years Used Date Smoking Tobacco: Former Cigarettes Passive Smoke Exposure: Past Smokeless Tobacco: Never Comments:30 YEARS AGO. Alcohol Answer Date Recorded Frequency of Alcohol Consumption Not on file 09/03/2024 Average Number of Drinks Not on file 024 Frequency of Binge Drinking Not on file 02/2024 Score 0 09/03/2024 Depression Answer Date Recorded Patient Health Questionnaire-9 Score 0 09/03/2024 Patient Health Questionnaire-9 Score 0 09/03/2024 Last PHQ-9: Questionnaire Data Not on file 1 11/03/2023 Housing Stability Answer Date Recorded What is your housing situation today? I have charlie mckeon 08/22/[address] you li ve. Do you have problems with any of the following? None of the above 08/22/2024 Food Insecurity Answer Date Recorded Within the past 12 months, y ou worried that your food would run out before you got money to buy more: Never True 08/22/2024 Within the past 12 months,th e food you bought just didn't last and you didn't have enough money to get more: Never True Transportation Answer Date Recorded In the past 12 months, has l ack of transportation kept you from medical appts, meetings, work or from getting things needed for daily living? No 08/22/2024 Utilities Answer Date Recorded In the past 12 months, has t he electric, gas, oil or water company threatened to shut off services in your home? No 08/22/2024 Depression Answer Date Recorded Patient Health Questionnaire-2 Score 0 09/03/2024 Internet Access Answer Date Recorded Internet Access Q1 No 08/22/2024 Internet Access Q2 I do not want or need it 07/31 Sex and Gender Information Value Date Recorded Sex Assigned at Male 08/29/2022 10:15 AM EDT Legal Sex Male 10:15 AM EDT Gender Identity Male 08/29/2022 10:15 AM EDT Sexual Orientation Straight 08/29/2022 10 :15 AM EDT documented as of this encounter Plan of Treatment Not on file documented as of this encounter Visit Diagnoses Not on filedocumented in this encounter Additional Health Concerns Assessment Noted Time PHQ-9 Depression Total Score: 0 09/03/20 24 11:28 AM EST documented as of this encounter Care Teams Stockkeeper Relationship Specialty Start Date End Date Chris Sarah MD [address] [place] [id number] PCP - General Internal Medicine 06/13/14 documented as of this encounter
== END 2025-04-09 13:57 | disposition home or self-care (01) ==
LOC: HO.ED 13:55
PROVIDERS: Emergency Medicine; Emergency Provider Emergency Medicine Emergency Medical Services; PCP Internal Medicine
DX: M79.662 Pain in left lower leg (principal); R60.0 Localized edema; R10.9 Unspecified abdominal pain; M54.50 Low back pain, unspecified; Z79.899 Other long term (current) drug therapy
CPT/HCPCS: 36415; 74176; 80048; 80076; 82803; 83690; 83735; 84484; 85025; 93005; 93971; 99283; 99284

== ENCOUNTER → 2025-04-09 10:52 | Outpatient (BNV) | payer OTHER, SELFPAY | PROVIDERS: PCP Internal Medicine; Visit Provider Radiology Diagnostic Radiology | DX: R10.9 Unspecified abdominal pain (principal); M79.605 Pain in left leg; R60.0 Localized edema | CPT/HCPCS: 74176; 93971 ==

== ENCOUNTER → 2025-04-09 10:53 | Outpatient (BNV) | payer OTHER, SELFPAY | PROVIDERS: Emergency Provider Emergency Medicine Emergency Medical Services; PCP Internal Medicine; Visit Provider Internal Medicine Cardiovascular Disease | DX: I25.2 Old myocardial infarction (principal) | CPT/HCPCS: 93010 ==

== ENCOUNTER 2025-04-19 10:59 | Emergency (ER) | payer OTHER, SELFPAY ==
--- NOTE | ~2025-04-19 | CT_ITS ---
CLINICAL HISTORY: barillas CT head without contrast Comparison: None Findings: No evidence of acute territorial infarct. There is minimal patchy low density in the periventricular and subcortical white matter. Minimal volume loss is noted. No hydrocephalus. No hemorrhage, mass effect, mass lesion or midline shift. No abnormal extra-axial fluid. No calvarial fracture. Paranasal sinuses and mastoid air cells are clear. Impression: No acute intracranial process. Mild chronic changes as detailed. This document has been electronically signed by: Will Anderson MD on 04/19/2025 12:51:01
--- NOTE | ~2025-04-19 | CT_ITS ---
CLINICAL HISTORY: cp CT ANGIOGRAPHY CHEST WITH CONTRAST. 3D POSTPROCESSING. Comparison: None provided Findings: The heart is enlarged with no significant pericardial effusion. There are median sternotomy changes. Normal RV/LV ratio. No thoracic aortic aneurysm or dissection. No pulmonary artery filling defects. The visualized thyroid and mediastinum are unremarkable. No consolidation, pleural effusion, or pneumothorax. Multiple small calcifications abut the left hemidiaphragm could be sequelae of prior inflammatory process or related to prior asbestos exposure. The visualized upper abdomen is unremarkable. No acute fractures. IMPRESSION: No pulmonary embolus or other acute cardiopulmonary process. This document has been electronically signed by: Louann Malave DO on 04/19/2025 13:11:58
--- NOTE | ~2025-04-19 | XR_ITS ---
CLINICAL HISTORY: cp 1 view chest x-ray. Comparison: None Findings: The lungs are adequately expanded. No focal consolidation. No effusion or pneumothorax. Cardiac and mediastinal contours are within normal limits. No acute osseous abnormality Impression: No acute process. This document has been electronically signed by: Will Anderson MD on 04/19/2025 12:11:49
--- NOTE | 2025-04-19 11:01 | ECG_ITS ---
Test Reason : CHEST PAIN Blood Pressure : */* mmHG Vent. Rate : 66 BPM Atrial Rate : 66 BPM P-R Int : 160 ms QRS Dur : 82 ms QT Int : 400 ms P-R-T Axes : 29 -20 64 degrees QTcB Int : 419 ms Normal sinus rhythm Inferior infarct (cited on or before 27-Feb-2015) Abnormal ECG When compared with ECG of 09-Apr-2025 11:04, No significant change was found Referred By: Generic ED Physician Electronically Signed By: Louis Bella
[2025-04-19 11:08] VITALS: BP 129/53; PULSE 66; RESP 16; TEMP 36; O2SAT 99; BMI 32.3
[2025-04-19 11:36] LABS: MANUAL DIFF FLAG NO
--- NOTE | 2025-04-19 11:40 | ED.GENADULT ---
HPI - General Adult General Chief complaint: General Medical Stated complaint: chest pain numbness pain head shoulders Time Seen by Provider: 04/19/25 11:06 History of Present Illness HPI narrative: Patient's is a 59-year-old male presents today with having chest pain tightness sharp had leg pain numbness in the past. No history of blood clots. No history of diaphoresis was in the ED on the had Doppler of the lower extremity also CT scan of the abdomen done patient claims since then he has been having a headache. The headache is diffuse. It is associated with some numbness in both legs. Associated with numbness in the arm. Today developed chest pain that is mid chest. He has a history of bypass surgery about 10 years ago is currently on Plavix. Patient has a history of hypertension hypercholesterolemia. History of CAD patient is from home. No leg swelling. No travel history. No history of blood clots. No abdominal pain today. No change in bowel movement. No nausea no vomiting. Related Data Home Medications ?Medication ?Instructions ?Recorded ?Confirmed atorvastatin 40 mg tablet 40 mg PO BEDTIME 12/09/20 06/06/22 clopidogrel 75 mg tablet (Plavix) 75 mg PO DAILY 12/09/20 06/06/22 aspirin 81 mg chewable tablet 1 tab PO DAILY 08/16/21 06/06/22 lisinopril 20 mg tablet 20 mg PO QAM 08/16/21 06/06/22 metoprolol succinate 50 mg 50 mg PO DAILY 08/16/21 06/06/22 tablet,extended release 24 hr (Toprol XL) zolpidem 10 mg tablet 10 mg PO BEDTIME PRN insomnia 08/16/21 06/06/22 Previous Rx's ?Medication ?Instructions ?Recorded cephalexin 500 mg capsule 500 mg PO QID 10 days #40 caps 06/18/21 doxycycline monohydrate 100 mg 100 mg PO BID 10 days #20 caps 06/18/21 capsule oxycodone-acetaminophen 5 mg-325 1 tab PO Q6H PRN pain #10 tabs 06/18/21 mg tablet (Percocet) hydrocortisone 2.5 % topical cream 1 appl AR BID-QID PRN hemorrhoids 09/17/21 with perineal applicator #30 grams (Proctosol HC) pantoprazole 40 mg tablet,delayed 40 mg PO DAILY #30 tabs 09/17/21 release sennosides 8.6 mg tablet (Natural 8.6 mg PO BEDTIME constipation #30 09/17/21 Senna Laxative) tabs docusate sodium 100 mg capsule 100 mg PO BEDTIME #90 caps 12/17/21 ferrous fumarate 200 mg (65 mg 1 tab PO BID #60 tabs 12/17/24 iron)-vit C 25 mg tablet,extend release (Nenita-Sequels (iron-vit c)) acetaminophen 325 mg capsule 325 mg PO QID PRN pain #28 caps 04/09/25 cyclobenzaprine 10 mg tablet 10 mg PO TID PRN muscle spasm #15 04/09/25 tabs prednisone 20 mg tablet 40 mg (2 x 20 mg) PO DAILY 5 days 04/09/25 #10 tabs Allergies Allergy/AdvReac Type Severity Reaction Status Date / Time No Known Allergies (No Known Allergy Verified 04/19/25 11:10 Allergies*) Review of Systems Review of Systems: Positive chest pain Positive bilateral leg numbness Positive bilateral hand numbness Positive headache Yes all other systems are reviewed and are negative [facility] Past Medical History Attestation statement: The following information was validated with the patient. Medical History Bleeding hemorrhoids Internal hemorrhoids GERD (gastroesophageal reflux disease) Surgical History Hx of CABG Hx of colonoscopy Hx of transurethral resection of prostate Social History Social History (Updated 06/06/22 @ 10:02 by WINNIE Kay) Household Members: Spouse Housing: House Alcohol intake: unknown Patient Tobacco Use Status: Never used Tobacco Advance Directives: No Advance Directives Information Provided: No Do you have a plan to hurt others: No Plan service: No Current occupational status: disabled Physical Exam ED Vital Signs: Vital Signs - 24 hr 04/19/25 11:08 04/19/25 14:16 Temperature 96.8 F Pulse Rate 66 60 Respiratory Rate 16 14 Blood Pressure 129/53 L 119/57 L Pulse Oximetry 99 95 Oxygen Delivery Method Room Air Room Air BMI result Body Mass Index 32.3 Appearance: Alert. Oriented X3. No acute distress. Eyes: Pupils equal, round and reactive to light. ENT: Pharynx normal. Neck: Normal inspection. Neck supple. No lymph nodes noted. No crepitus CVS: Normal heart rate and rhythm. Pulses normal. Normal S1 and S2 Respiratory: No respiratory distress. Breath sounds normal. No Wheezing. No rales Abdomen: Soft and nontender. No rigidity. No distention. good BS x4 Skin: Skin warm and dry. Normal skin color. Normal skin turgor. Extremities: No lower extremity edema. Neurovascular intact to all extremities. No Lacerations. No Rash Neuro: Oriented X 3. No motor deficit. No sensory deficit. Moving all extermities. No slurred speech Medications Administered Discontinued Medications Generic Name Dose Route Start Last Admin Trade Name Freq PRN Reason Stop Dose Admin Iohexol 100 ml 04/19/25 12:21 04/19/25 12:21 Iohexol 350 Mg/Ml 100 Ml Infus..Btl IV 04/19/25 12:22 65 ml ONCE ONE Administration Medical Decision Making Medical Decision Making [facility] Narrative: Patient presents today with multitude of complaints including headache, arm numbness leg numbness already had a DVT study done a week ago. It was grossly negative. Symptom has been ongoing since he was discharged on the . My interpretation CT head was grossly negative. Because patient had chest pain a CT angio of the chest was done there is no evidence for PE. No evidence for pneumonia no evidence for pneumothorax no rib fracture. Patient troponin is less than 2.7. EKG is unchanged from previous. Will get a 2nd set in the setting of having constant pain that is ongoing since 07:00 have 2 sets of enzymes are negative atypical history unlikely to be ACS. Patient's leg pain and leg numbness is more chronic in nature patient's hemoglobin is 14.6 there is no evidence for anemia. Sed rate is 7 there is no evidence for temporal arteritis Differential Diagnosis Differential Diagnoses: The differential diagnosis associated with the presentation includes Intracranial bleed, intracranial mass, temporal arteritis, PE, pneumonia, ACS, rib fracture, electrolyte disturbance Admission/Observation Consideration of admission/observation: Escalation of care including admission/observation considered Lab Data [facility] Lab Attestation statement: I reviewed the patient's lab results. 04/19/25 11:31 04/19/25 11:31 Labs: Lab Results 04/19/25 04/19/25 Range/Units 11:31 14:15 WBC 6.9 (4.8-10.8) X10*3/uL RBC 5.05 (4.60-5.80) X10*6/uL Hgb 14.6 (14.0-18.0) g/dl Hct 41.7 L (42.0-52.0) % MCV 82.6 (80.0-98.0) fL MCH 28.9 (27.0-33.0) pg MCHC 35.0 (31.0-36.0) g/dl RDW 13.9 (11.0-16.0) % Plt Count 213 (160-400) X10*3/uL MPV 10.2 (9.4-12.4) fL Immature Gran % (Auto) 0.9 H (0.0-0.4) % Neut % (Auto) 57.6 (45-73) % Lymph % (Auto) 30.9 (20-40) % [place] % (Auto) 7.9 (2-11) % Eos % (Auto) 2.6 (0-4) % Baso % (Auto) 0.1 (0-2) % Lymph # (Auto) 2.1 (1.2-4.9) X10*3/uL [place] # (Auto) 0.5 (0.1-1.2) X10*3/uL Eos # (Auto) 0.2 (0.0-0.4) X10*3/uL Baso # (Auto) 0.0 (0.0-0.2) X10*3/uL Abs Immat Gran (auto) 0.06 H (0.00-0.03) X10*3/uL Absolute Neuts (auto) 4.0 (2.0-8.3) x10*3/uL Absolute Nucleated RBC 0.000 (0.0-0.012) X10*3/uL Nucleated RBC % (auto) 0.0 (0.0-0.2) /100WBC ESR 7 (0-15) MM/HR Sodium 136 (135-145) mmol/L Potassium 4.7 (3.3-5.1) mmol/L Chloride 101 (96-108) mmol/L Carbon Dioxide 27 (22-29) mmol/L Anion Gap 13 (12-20) BUN 15 (9-16) mg/dL Creatinine 0.99 (0.5-1.4) mg/dL Estim Creat Clear Calc 82.6 Estimated GFR > 60 Random Glucose 143 H (60-115) mg/dL Calcium 9.2 (8.4-10.2) mg/dL Magnesium 2.3 (1.6-2.6) mg/dL Total Bilirubin 0.6 (0.0-1.0) mg/dL Direct Bilirubin 0.2 (0.0-0.5) mg/dL AST 34 (5-37) U/L ALT 70 H (0-40) U/L Alkaline Phosphatase 77 (39-117) U/L Troponin I High Sens < 2.7 < 2.7 (<3.5-35.0) ng/L C-Reactive Protein 0.61 H (< or = 0.50) mg/dL Total Protein 7.0 (6.5-8.0) g/dL Albumin 4.3 (3.5-5.0) g/dL Independent Interpretation I performed an independent interpretation of an: EKG (Sinus heart rate is 70 AR QRS QTC normal there is no acute ST segment elevation noted), Plain X-Ray (Chest x-ray is grossly negative for pneumonia) and CT Scan (CT angio grossly negative for rib fracture pneumothorax infiltrate no large PE) Radiology Impression Discussion of test interpretation with radiology: I have reviewed the radiologist's reading. Independent Historian Clinical information obtained from an independent historian. History obtained from or confirmed by: Other (Additional history obtained through patient's family) External Record Review External record reviewed: Inpatient record and Office record Chronic Conditions Patient?s care impacted by: Diabetes and Hypertension History of CAD Social Determinants Patient?s care significantly limited by Social Determinants of Health including: Problems related to primary support group Discharge Plan Discharge Clinical Impression: Chest pain Patient Disposition: Home, Self-Care Prescriptions: No Action Nenita-Sequels (iron-vit c) 200 mg (65 mg iron)-25 mg Tablet Extended Release 1 tab PO BID Qty: 60 6RF doxycycline monohydrate 100 mg capsule 100 mg PO BID 10 Days Qty: 20 0RF cephalexin 500 mg capsule 500 mg PO QID 10 Days Qty: 40 0RF oxycodone-acetaminophen [Percocet] 5-325 mg tablet 1 tab PO Q6H PRN (Reason: pain) Qty: 10 0RF prednisone 20 mg tablet 40 mg PO DAILY 5 Days Qty: 10 0RF cyclobenzaprine 10 mg tablet 10 mg PO TID PRN (Reason: muscle spasm) Qty: 15 0RF Rx Instructions: side effect is drowsiness. Do not take at work or while driving acetaminophen 325 mg capsule 325 mg PO QID PRN (Reason: pain) Qty: 28 0RF lisinopril 20 mg tablet 20 mg PO QAM metoprolol succinate [Toprol XL] 50 mg tablet extended release 24 hr 50 mg PO DAILY zolpidem 10 mg tablet 10 mg PO BEDTIME PRN (Reason: insomnia) aspirin 81 mg tablet,chewable 1 tab PO DAILY clopidogrel [Plavix] 75 mg tablet 75 mg PO DAILY atorvastatin 40 mg tablet 40 mg PO BEDTIME pantoprazole 40 mg tablet,delayed release (DR/EC) 40 mg PO DAILY Qty: 30 4RF hydrocortisone [Proctosol HC] 2.5 % cream with perineal applicator 1 appl AR BID-QID PRN (Reason: hemorrhoids) Qty: 30 2RF sennosides [Natural Senna Laxative] 8.6 mg tablet 8.6 mg PO BEDTIME Qty: 30 3RF docusate sodium 100 mg capsule 100 mg PO BEDTIME Qty: 90 5RF Print Language: Haitian
[2025-04-19 11:42] LABS: Basophils Percent Auto 0.1 % (0-2); Eosinophils Absolute Auto 0.2 X10*3/uL (0.0-0.4); Eosinophils Percent Auto 2.6 % (0-4); Hematocrit 41.7 % (42.0-52.0); Hemoglobin 14.6 g/dl (14.0-18.0); Imm Gran Abs Auto 0.06 X10*3/uL (0.00-0.03); Imm Gran Pct Auto 0.9 % (0.0-0.4); Lymphocytes Absolute Auto 2.1 X10*3/uL (1.2-4.9); Lymphocytes Percent Auto 30.9 % (20-40); Mean Corpuscular Hemoglobin 28.9 pg (27.0-33.0); Mean Corpuscular Volume 82.6 fL (80.0-98.0); Mean Platelet Volume 10.2 fL (9.4-12.4); Monocytes Absolute Auto 0.5 X10*3/uL (0.1-1.2); Monocytes Percent Auto 7.9 % (2-11); Neutrophils Percent Auto 57.6 % (45-73); Platelet Count 213 X10*3/uL (160-400); Red Blood Count 5.05 X10*6/uL (4.60-5.80); Red Cell Distribution Width 13.9 % (11.0-16.0); White Blood Count 6.9 X10*3/uL (4.8-10.8)
[2025-04-19 11:56] LABS: Alanine Aminotransferase 70 U/L (0-40); Albumin Level 4.3 g/dL (3.5-5.0); Alkaline Phosphatase 77 U/L (39-117); Anion Gap 13 (12-20); Aspartate Amino Transferase 34 U/L (5-37); Bilirubin Direct 0.2 mg/dL (0.0-0.5); Bilirubin Total 0.6 mg/dL (0.0-1.0); Blood Urea Nitrogen 15 mg/dL (9-16); Calcium 9.2 mg/dL (8.4-10.2); Carbon Dioxide 27 mmol/L (22-29); Chloride 101 mmol/L (96-108); Creatinine Clr Calc Pharmacy 82.6; Estimated Glomerular Filt Rate > 60; Glucose Random 143 mg/dL (60-115); Magnesium 2.3 mg/dL (1.6-2.6); Potassium 4.7 mmol/L (3.3-5.1); Sodium 136 mmol/L (135-145)
[2025-04-19 12:04] LABS: Troponin-I High Sensitivity < 2.7 ng/L (<3.5-35.0)
[2025-04-19] MEDS: iohexoL 350 MG/ML 100 ML INFUS..BTL IV (12:21)
[2025-04-19 12:41] LABS: C Reactive Protein 0.61 mg/dL (< or = 0.50)
[2025-04-19 13:07] LABS: Erythrocyte Sedimentation Rate 7 MM/HR (0-15)
[2025-04-19 14:16] VITALS: BP 119/57; PULSE 60; RESP 14; O2SAT 95
[2025-04-19 14:44] LABS: Troponin-I High Sensitivity < 2.7 ng/L (<3.5-35.0)
[2025-04-19 15:07] VITALS: BP 130/62; PULSE 62; RESP 16; TEMP 36.7; O2SAT 95
== END 2025-04-19 15:07 | disposition home or self-care (01) ==
PROVIDERS: Physician Assistant Medical; Emergency Provider Emergency Medicine Emergency Medical Services; PCP Internal Medicine
DX: R07.9 Chest pain, unspecified (principal); I10 Essential (primary) hypertension; E78.5 Hyperlipidemia, unspecified; Z86.718 Personal history of other venous thrombosis and embolism; Z79.899 Other long term (current) drug therapy; Z79.02 Long term (current) use of antithrombotics/antiplatelets
CPT/HCPCS: 36415; 70450; 71045; 71275; 80048; 80076; 83735; 84484; 85025; 85652; 86140; 93005; 99283; 99284; Q9967

== ENCOUNTER → 2025-04-19 11:01 | Outpatient (BNV) | payer OTHER, SELFPAY | PROVIDERS: Emergency Provider Emergency Medicine Emergency Medical Services; PCP Internal Medicine; Visit Provider Internal Medicine Cardiovascular Disease | DX: I25.2 Old myocardial infarction (principal) | CPT/HCPCS: 93010 ==

== ENCOUNTER → 2025-04-19 11:39 | Outpatient (BNV) | payer OTHER, SELFPAY | PROVIDERS: Emergency Provider Emergency Medicine Emergency Medical Services; PCP Internal Medicine; Visit Provider Radiology Vascular & Interventional Radiology | DX: R07.9 Chest pain, unspecified (principal); R51.9 Headache, unspecified | CPT/HCPCS: 70450; 71045; 71275 ==

== ENCOUNTER 2025-04-22 13:33 | Outpatient (AMB) | payer OTHER, SELFPAY ==
--- NOTE | 2025-04-22 13:38 | MHC.OFFVIS ---
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 He has been twice. Both legs hurt, they cramp, fall asleep and swell. 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 He initially noticed swelling in his left leg, extending from the toes to the leg, accompanied by significant pain, tingling, and numbness. These symptoms have now started affecting his right leg, although without swelling, but with pain and cramping sensations. He reports lower back pain described as pulsating, which may be contributing to his symptoms. He denies any history of smoking or diabetes. The patient was seen in the emergency room on two occasions, April 09 and April 19, for leg issues and left flank pain. A venous duplex ultrasound was performed, which was negative for deep vein thrombosis. He can walk approximately one block or for about 10 minutes before needing to rest due to discomfort. [facility] Medical History Bleeding hemorrhoids Internal hemorrhoids GERD (gastroesophageal reflux disease) Surgical History Hx of transurethral resection of prostate Hx of CABG Hx of colonoscopy Social History Household Members: Spouse Housing: House Alcohol intake: unknown Patient Tobacco Use Status: Never used Tobacco service: No Current occupational status: disabled Review of Systems Const All systems reviewed & are unremarkable except as noted in HPI and below Reports no additional complaints ENT Reports Normal hearing present Card Denies chest pain, Denies chest pain at rest, Denies chest pain with activity and Denies pedal edema Resp Denies cough GI Denies abdominal pain Musc Denies abnormal gait, Denies muscle cramps and Denies radiating pain into limb Skin/Breast Denies skin ulcer and Denies wounds Neuro Reports Normal hearing present and Denies abnormal gait Psych Reports no additional complaints Physical Exam Const General: cooperative, healthy appearing and comfortable Orientation/consciousness: oriented to person, oriented to place and oriented to time HEENT Head: Yes normal to inspection Neck Neck: Yes normal visual inspection Carotids: no bruits Chest Chest palpation & inspection: normal inspection of the chest Resp Effort & Inspection: normal respiratory effort and able to speak in complete sentences Auscultation: clear to auscultation bilaterally, no crackles, no rales, no rhonchi and no wheezes Cardio Other: Bilateral palpable dorsalis pedis pulses Rate: regular rate Rhythm: regular rhythm Heart sounds: S1 normal heart sound present and S2 normal heart sound present Bruits: no carotid bruits Peripheral pulses: Peripheral pulses 2+ throughout GI Inspection: Yes normal to inspection Skin Wounds: no wounds Hair: normal Neuro General: oriented to person, oriented to place and oriented to time Cranial nerves: Yes CN's II-XII intact bilaterally and Yes Normal hearing present Cognition (Neuro): normal cognition Motor exam (neuro): 5/5 motor strength present throughout Extrem Other: venous exam: No significant superficial varicosities or spider telangiectasias, minimal edema General: No clubbing, No cyanosis and No edema Psych Appearance: grossly normal Mental Status: mental status grossly normal Speech and movement: Normal speech and movement present Results Reviewed Results Reviewed: 04/09/2025 lower extremity duplex was negative for DVT 04/09/2025 CT abdomen pelvis with IV contrast normal aorta with some atherosclerotic calcifications but normal in caliber 03/12/2025 MR of the left leg with contrast mild osteoarthritis Assessment & Plan Assessment & Plan (1) PAD (peripheral artery disease): Code(s): I73.9 - Peripheral vascular disease, unspecified Category: Medical Plan: I do not think he has lower extremity pain is related to his vascular status. He does have palpable arterial pulses at the current time he does appear to be doing well and ambulating distances. He will follow up with us on an as-needed basis (2) Plantar fasciitis: Code(s): M72.2 - Plantar fascial fibromatosis Category: Medical Plan: On direct palpation of the plantar surface he does no pain. He does have an element of plantar fasciitis. May benefit from podiatry evaluation and/or appropriate shoe inserts. This was relayed to the patient and the patient's daughter. They will follow up with us on an as-needed basis. (3) Back pain: Code(s): M54.9 - Dorsalgia, unspecified Category: Medical Qualifiers: Back pain location: low back pain Chronicity: chronic Back pain laterality: bilateral Sciatica presence: with sciatica Sciatica laterality: bilateral sciatica Qualified Code(s): M54.42 - Lumbago with sciatica, left side; M54.41 - Lumbago with sciatica, right side; G89.29 - Other chronic pain Plan: I do believe he has an element of neuropathic pain. He does have lower back pain issues. He has had a previous left lower extremity MR. He may benefit from a pain management evaluation regarding his lower back. Once again he will follow up with us on an as-needed basis. I will make that referral to pain management. Thank you for allowing us to assist in his care. Orders: Referrals Pain Management Referral G89.29 - Other chronic pain, M54.41 - Lumbago with sciatica, right side, M54.42 - Lumbago with sciatica, left side Coding Level of Care Code New Pt Level 4 (07575) Complex EM visit Add On G2211 Diagnoses PAD (peripheral artery disease) I73.9 Plantar fasciitis M72.2 Chronic bilateral low back pain with bilateral sciatica M54.42; M54.41; G89.29 Back pain location: low back pain Chronicity: chronic Back pain laterality: bilateral Sciatica presence: with sciatica Sciatica laterality: bilateral sciatica
--- OUTSIDE RECORDS SUMMARY | 2025-04-22 15:46 | XMS_ITS | Encounter Summary ---
Author Organization [employer] Address [address] [facility] [address] [place] [address] Care Team Providers Care Motor Equipment Commanding Officer Name Role Phone Chris Sarah MD Primary Care Provide r Reason for Visit * Reason Comments Med Refill Encounter Details Date Type Department Care Team ([facility] st Contact Info) Description 10/10/2024 Refill [facility] [address] [place] [id number] Chris Sarah MD [address] [place] [address] Social History Tobacco Use Types Packs/Day Years [...] as of this encounter Plan of Treatment Upcoming Encounters Date Type Department Care Team (Late st Contact Info) Description 04/23/2025 2:15 PM EDT Office Visit [facility] [address] [place] [id number] Odalys Ward MD [address] [place] [phone] documented as of this encounter Visit Diagnoses Not on filedocumented in this encounter Additional Health Concerns Assessment Noted Time PHQ-9 Depression Total Score: 0 09/03/20 24 11:28 AM EST documented as of this encounter Care Teams Motor Equipment Commanding Officer Relationship Specialty Start Date End Date Chris Sarah MD [address] [place] [id number] PCP - General Internal Medicine 06/13/14 documented as of this encounter
== END 2025-04-22 14:11 | disposition home or self-care (01) ==
LOC: HO.HVS 13:34
PROVIDERS: PCP Internal Medicine; Visit Provider Surgery Vascular Surgery
DX: I73.9 Peripheral vascular disease, unspecified (principal); M72.2 Plantar fascial fibromatosis; M54.42 Lumbago with sciatica, left side; M54.41 Lumbago with sciatica, right side; G89.29 Other chronic pain
CPT/HCPCS: 99204; G2211

== ENCOUNTER → 2025-04-22 13:33 | Outpatient (BNVA) | payer OTHER, SELFPAY | PROVIDERS: PCP Internal Medicine; Visit Provider Surgery Vascular Surgery | DX: I73.9 Peripheral vascular disease, unspecified (principal); M72.2 Plantar fascial fibromatosis; M54.42 Lumbago with sciatica, left side; M54.41 Lumbago with sciatica, right side; G89.29 Other chronic pain | CPT/HCPCS: 99202 ==

== ENCOUNTER 2025-08-23 16:18 | Outpatient (REF) | payer OTHER, SELFPAY ==
--- NOTE | ~2025-08-23 | MR_ITS ---
CLINICAL HISTORY: dizziness MR Angiography neck with and without gadolinium Comparison: None provided Findings: Visualized aortic arch and great vessel takeoffs are normal. Bilateral subclavian, vertebral, and carotid arteries are patent. The intracranial vertebrobasilar system is patent. IMPRESSION: Normal MRA neck This document has been electronically signed by: John Fortune MD on 08/26/2025 14:40:00
--- NOTE | ~2025-08-23 | MR_ITS ---
CLINICAL HISTORY: dizzines MR Angiography head without gadolinium Comparison: None provided Findings Right AICA not definitely seen (finding may be congenital -there is a dominant right AICA-, or due to age-indeterminate stenosis and/or occlusion). Correlate clinically +/-with brain MRI. Otherwise no evidence of significant arterial stenosis, aneurysm, AVM, or dissection. IMPRESSION: Right AICA not definitely seen (finding may be congenital -there is a dominant right AICA-, or due to age-indeterminate stenosis and/or occlusion). Correlate clinically +/-with brain MRI. Otherwise no evidence of significant arterial stenosis, aneurysm, AVM, or dissection. This document has been electronically signed by: Mandy Loza MD on 08/26/2025 09:39:15
--- OUTSIDE RECORDS SUMMARY | 2025-08-23 16:21 | XMS_ITS | Clinical Summary ---
Author Organization [facility] Address [address] [place] [address] Care Team Providers Care Medical Records Technician Name Role Phone Pcp, No Primary Care Provider Unavailabl e Allergies No known active allergies Medications Aspirin Low Dose 81 MG chewable tablet TAKE 1 TABLET BY MOUTH EVERY MORNING MASTIQUE 09/14/2020 Active atorvastatin (LIPITOR) 40 MG tablet Take 40 mg by mouth nightly. 09/14/2020 Active lisinopril (PRINIVIL,ZeSTR IL) 20 MG tablet Take 20 mg by mouth every morning. 10/13/2020 Active metoPROLOL SUCCINATE (TOPROL-XL) 50 MG 24 hr tablet TAKE 1 AND 1/2 TABLETS BY MOUTH EVERY EVENING 10/13/2020 Active amLODIPine (NORVASC) 10 MG tablet Take 10 mg by mouth every morning. 10/13/2020 Active clopidogrel (PLAVIX) 75 MG tablet Take 75 mg by mouth every evening. 09/14/2020 Active PANTOprazole (PROTONIX) 40 MG EC tablet Take 40 mg by mouth every morning. 08/17/2020 Active zolpidem (AMBIEN) 10 MG tablet Take 10 mg by mouth nightly as needed. for sleep 10/16/2020 Active Social History Tobacco Use Types Packs/Day Years Used Date Smoking Tobacco: Never Smokeless Tobacco: Never Alcohol Use Standard Drinks/Week Comments Not Currently 0 (1 standard drink = 0.6 oz pur e alcohol) Sex and Gender Information Value Date Recorded Sex Assigned at Not on file Legal Sex Male 7:09 PM EST Gender Identity Not on file Sexual Orientation Not on file Last Filed Vital Signs Vital Sign Reading Time Taken Comments Blood Pressure 132/70 12/29/2020 5:26 PM EST Pulse 80 12/29/2020 5:26 PM EST Temperature 36.7 C (98 F) 12/29/2020 5:26 PM EST Respiratory Rate 18 10/11/2020 12:40 PM EST Oxygen Saturation 99% 12/29/2020 5:26 PM EST Inhaled Oxygen Concentration - - Weight 9.072 kg (20 lb) 12/29/2020 5:26 PM EST Height 167.6 cm (5' 6 ) 12/29/2020 5:26 PM EST Body Mass Index 3.23 12/29/2020 5:26 PM EST Plan of Treatment Health Maintenance Due Date Last Done Comments Hepatitis C Virus Screening 1963 HIV Screening 1976 DTaP/Tdap/Td Vaccines (1 - Tdap) 1982 Colonoscopy 2008 Pneumococcal Vaccines 50+ (1 of 1 - PCV) 2013 Zoster (Shingles) Vaccine (1 of 2) 2013 Influenza Vaccine 05/30/2025 COVID-19 Vaccine (1 - 2023-2 5 season) 2025 RSV Vaccine 50 years and old er and Patients (1 - 1-dose 75+ series) 2038 Hepatitis B Vaccines Aged Out No long er eligible based on patient's age to complete this topic Insurance [facility] MEDICARE OUT OF NETWORK Member Subscriber Plan / Payer (Ef fective 2016-Present) Name:Matteo Alberto Member ID:[id number] Relation to Subscriber:Self Name:Matteo Alberto Subscriber ID:[id number] Payer ID:Not on file Group ID:Not on file Type:Not on file Address: [address] MEDICARE OUT OF NETWORK on file Care Teams Medical Records Technician Relationship Specialty Start Date End Date Pcp, Sissy PCP - General General Medicine 12/28/20
--- OUTSIDE RECORDS SUMMARY | 2025-08-23 16:21 | XMS_ITS | Encounter Summary ---
Author Organization [employer] Address [address] [facility] [address] [place] [address] Care Team Providers Care Accounting Administrator Name Role Phone Chris Sarah MD Primary Care Provide r Encounter Details Date Type Department Care Team (Late st Contact Info) Description 09/15/2022 Abstract [facility] [address] [place] [address] Provider, Yair, Social History Tobacco Use Types Packs/Day Years Used Date Smoking Tobacco: Never Assessed Sex and Gender Information Value Date Recorded Sex Assigned at Male 08/29/2022 10:15 AM EDT Legal Sex Male 10:15 AM EDT Gender Identity Male 08/29/2022 10:15 AM EDT Sexual Orientation Straight 08/29/2022 10 :15 AM EDT documented as of this encounter Plan of Treatment Not on file documented as of this encounter Procedures Procedure Name Priority Date/Time Associated Diagnosis Comments LIPID PANEL, STANDARD Routine 10/04/2021 COLONOSCOPY Routine 05/14/2020 2:46 PM EDT documented in this encounter Results * (ABNORMAL) Lipid Panel, Standard (10/04/2021) LDL HDL Ratio 4.8 Triglycerides 96 40 - 160 mg/dL Cholesterol 152 0 - 200 mg/dL HDL Cholesterol 32(A) 35 - 70 mg/dL LDL Cholesterol 101 mg/dL Blood Venous blood specimen / Unknown Historical Provider LAB BLOOD ORDERABLES Shahla l Result * Colonoscopy (05/14/2020 2:46 PM EDT) Colonoscopy 2 to 3+ inflamed internal hemorrhoids, diverticulosis seen on CAT scan. No us Historical Provider HEALTH MAINTENANCE Edited Result - Final documented in this encounter Visit Diagnoses Not on filedocumented in this encounter Care Teams Accounting Administrator Relationship Specialty Start Date End Date Chris Sarah MD [address] [place] [id number] PCP - General Internal Medicine 06/13/14 documented as of this encounter
--- OUTSIDE RECORDS SUMMARY | 2025-08-23 16:21 | XMS_ITS | Encounter Summary ---
Author Organization [employer] Address [address] [facility] [address] [place] [address] Care Team Providers Care Assembler Wire Mesh Gate Name Role Phone Chris Sarah MD Primary Care Provide r Encounter Details Date Type Department Care Team ([facility] st Contact Info) Description 09/19/2023 [facility] [address] [place] [address] Chris Sarah MD [address] [place], [place] [id number] Social History Tobacco Use Types Packs/Day Years Used Date Smoking Tobacco: Former Cigarettes Smokeless Tobacco: Never Comments:30 YEARS AGO. Housing Stability Answer Date Recorded What is your housing situation today? I have charlie mckeon 08/21/[address] you li ve. Do you have problems with any of the following? None of the above 08/21/2023 Food Insecurity Answer Date Recorded Within the past 12 months, y ou worried that your food would run out before you got money to buy more: Never True 08/21/2023 Within the past 12 months,th e food you bought just didn't last and you didn't have enough money to get more: Never True Transportation Answer Date Recorded In the past 12 months, has l ack of transportation kept you from medical appts, meetings, work or from getting things needed for daily living? No 08/21/2023 Utilities Answer Date Recorded In the past 12 months, has t he electric, gas, oil or water company threatened to shut off services in your home? No 08/21/2023 Depression Answer Date Recorded Patient Health Questionnaire-2 Score 1 06/15/2023 Sex and Gender Information Value Date Recorded Sex Assigned at Male 08/29/2022 10:15 AM EDT Legal Sex Male 10:15 AM EDT Gender Identity Male 08/29/2022 10:15 AM EDT Sexual Orientation Straight 08/29/2022 10 :15 AM EDT documented as of this encounter Plan of Treatment Not on file documented as of this encounter Visit Diagnoses Not on filedocumented in this encounter Care Teams Assembler Wire Mesh Gate Relationship Specialty Start Date End Date Chris Sarah MD [address] [place] [address] PCP - General Internal Medicine 06/13/14 documented as of this encounter
--- OUTSIDE RECORDS SUMMARY | 2025-08-23 16:21 | XMS_ITS | Encounter Summary ---
Author Organization [employer] Address [address] [facility] [address] [place] [address] Care Team Providers Care Database Marketing Manager Name Role Phone Chris Sarah MD Primary Care Provide r Reason for Visit * Reason Comments Med Refill Encounter Details Date Type Department Care Team ([facility] st Contact Info) Description 10/10/2024 Refill [facility] [address] [place] [address] Chris Sarah MD [address] [place] [address] Social History Tobacco Use Types Packs/Day Years [...] documented as of this encounter Care Teams Database Marketing Manager Relationship Specialty Start Date End Date Chris Sarah MD [address] [place] [id number] PCP - General Internal Medicine 06/13/14 documented as of this encounter
--- OUTSIDE RECORDS SUMMARY | 2025-08-23 16:21 | XMS_ITS | Encounter Summary ---
Author Organization [employer] Address [address] [facility] [address] [place] [address] Care Team Providers Care Pl Sql Developer Name Role Phone Chris Sarah MD Primary Care Provide r Reason for Visit * Reason Comments Med Refill Encounter Details Date Type Department Care Team ([facility] st Contact Info) Description 10/21/2024 Refill [facility] MEDICINE [address] [place] [address] Chris Sarah MD [address] [place] [address] Social History Tobacco Use Types Packs/Day Years [...] documented as of this encounter Care Teams Pl Sql Developer Relationship Specialty Start Date End Date Chris Sarah MD [address] [place] [id number] PCP - General Internal Medicine 06/13/14 documented as of this encounter
--- OUTSIDE RECORDS SUMMARY | 2025-08-23 16:21 | XMS_ITS | Clinical Summary ---
Author Organization [employer] Address [address] [place] [address] Care Team Providers Care Cell Liner Name Role Phone Chris Sarah MD Primary Care Provide r Allergies No known active allergies Medications acetaminophen (Tylenol) 500 MG tablet Take 500 mg by mouth every 6 (six) hours if needed. 1 Active meclizine (Antivert) 25 MG tablet Take 25 mg by mouth in the morning and 25 mg at noon and 25 mg in the evening. 9 Active metoprolol succinate XL (Toprol-XL) 50 MG 24 hr tablet Take 1.5 tablets by mouth in the morning. 0 Active zolpidem (Ambien) 10 MG tabletIndications :Primary insomnia TAKE 1 TABLET BY MOUTH AT BEDTIME NEEDED 30 tablet 3 4 Active Additional Information Patient not taking.Reported on 04/23/2025 meloxicam (Mobic) 15 MG tabletIndications :Chronic neck pain Take 1 tablet (15 mg) by mouth Once per day. 30 tablet 6 4 Active Additional Information Patient not taking.Reported on 04/23/2025 triamcinolone (Kenalog) 0.1 % creamIndications: Eczema of lower leg Apply topically if needed in the morning and at bedtime (pain and swelling). 30 g 2 4 Active pantoprazole (ProtoNix) 40 MG EC tablet TAKE 1 TABLET BY MOUTH EVERY MORNING 90 tablet 3 4 Active lisinopril 20 MG tablet TAKE 1 TABLET BY MOUTH EVERY MORNING 90 tablet 3 4 Active clopidogrel (Plavix) 75 MG tabletIndications :Athscl heart disease of [place] coronary artery w/o ang pctrs TAKE 1 TABLET BY MOUTH EVERY EVENING 90 tablet 3 5 Active atorvastatin (Lipitor) 40 MG tabletIndications :Athscl heart disease of [place] coronary artery w/o ang pctrs TAKE 1 TABLET BY MOUTH AT BEDTIME 90 tablet 3 5 Active Aspirin Low Dose 81 MG chewable tabletIndications :Athscl heart disease of [place] coronary artery w/o ang pctrs TAKE 1 TABLET BY MOUTH EVERY MORNING (CHEW) 90 tablet 3 5 Active lidocaine (Lidoderm) 5 % patchIndications: Cervical radiculopathy Apply 1 patch topically Once per day. Remove & discard patch within 12 hours or as directed by MD. 30 patch 2 5 Active hydrocortisone (Proctosol HC) 2.5 % rectal creamIndications: BRBPR (bright red blood per rectum) Insert into the rectum 2 times daily. 28 g 3 5 Active Active Problems Problem Noted Date Diagnosed Date BRBPR (bright red blood per rectum) 07/01/2025 Assessment & Plan (07/01/2025 11:17 AM EDT): Patient with c/o BRBPR when constipated, not currently On exam external hemorrhoids present Plan: CBC, Gastroenterology evaluation for colonoscopy Proctosol Vertigo 04/23/2025 Assessment & Plan (04/23/2025 8:54 PM EDT): -CT head/brain wo IV con 04/19/2025 minimal patchy low density in the periventricular and subcortical white matter. Minimal volume loss is noted. No hydrocephalus. No hemorrhage, mass effect, mass lesion or midline shift. No abnormal extra-axial fluid. No calvarial fracture. Paranasal sinuses and mastoid air cells are clear. No acute intracranial process. Mild chronic changes as detailed. -MRI cervical 2022 Progressive cervical spondylosis with spondylitic changes resulting in worsening moderate to severe central canal stenosis at C3-C4 and C5-C6. Similar moderate central canal stenosis at C4-C5 and slightly worsening mild to moderate central canal stenosis at C6-C7. Varying degrees of moderate to severe foraminal stenosis throughout the cervical spine again noted. -states saw surgeon for neck radiculopathy and was advised for surgery but pt refused w concern for surgical complication risk ,also referred to PT but never completed . I explained pt that is very possible that pt numbness sensation ,neck, HORNER can be associated from cervical spine moderate to severe stenosis and surgery likely will benefit pt. Given significant vertigo will need to r/o vertebral circulation pathology -he saw Dr. Posada before and pt agreed today to be open for procedure - referring pt back to neurosurgeon to resume evaluation -referred today for angiography w MRA neck/Brain -lidoderm patch,tylenol PRN -apt w PCP 05/27/2025 to continue care and to monitor for noted elevated LFTs in ED Numbness 04/23/2025 Impaired glucose tolerance 09/03/2024 Assessment & Plan (09/03/2024 11:53 AM EST): FBS 119 Discussed diet and exercise Eczema of lower leg 09/03/2024 Assessment & Plan (09/03/2024 11:58 AM EST): Pt with a dry scaly rash left lower extremity, worsened by cold, exam suggestive of eczema Plan: Triamcinolone cream, follow up if no improvement Left leg pain 12/28/2023 Assessment & Plan (04/30/2024 11:35 AM EDT): Pt with recurrent c/o pain on his left ankle, accompanied by intermittent swelling Etiology ? previous plain film of his left ankle 05/2021 showed soft tissue inflammation Previous work up included DENY, CRP, RF, Uric Acid all normal. pt was referred to Rheumatology, pt did not go. He tells me he was in [facility] and there they checked his uric acid and they told him it was elevated, he was given Allopurinol 300 mg that he was taking up until recently Repeat his Uric acid was within normal limits On today's exam there is no redness, no swelling, there is a small 2 x 2 cm area of protuberance/mass anterior left lower leg which is tender to palpation. MRI of his left lower leg 03/12/2024 showed IMPRESSION: LEFT FEMUR: 1. No mass or abnormal enhancement. 2. Multiple small lymph nodes in the region of the left thigh likely reactive. 3. Mild osteoarthritis of the left hip, unchanged compared with prior CT August 2021. 4. Incidental note made of mild osteoarthritis of the right hip, unchanged compared with prior CT August 2021. 5. Limited evaluation of the left knee joint. Possible mild arthrosis of the patellofemoral joint. LEFT LOWER LE. No mass or other abnormality. 2. No lymphadenopathy. Assessment & Plan (02/13/2024 12:58 PM EDT): Pt with recurrent c/o pain on his left ankle, accompanied by intermittent swelling Etiology ? previous plain film of his left ankle 05/2021 showed soft tissue inflammation Previous work up included DENY, CRP, RF, Uric Acid all normal. pt was referred to Rheumatology, pt did not go. He tells me he was in [place] and there they checked his uric acid and they told him it was elevated, he was given Allopurinol 300 mg that he was taking up until recently Repeat his Uric acid was within normal limits On today's exam there is no redness, no swelling, there is a small 2 x 2 cm area of protuberance/mass anterior left lower leg which is tender to palpation. This is a new finding Previous visit I ordered an MRI of his left lower leg to rule a soft tissue mass scheduled for 03/12/2024 Assessment & Plan (12/28/2023 4:22 PM EST): Pt with recurrent c/o pain on his left ankle, accompanied by intermittent swelling Etiology ? previous plain film of his left ankle 05/2021 showed soft tissue inflammation Previous work up included DENY, CRP, RF, Uric Acid all normal. pt was referred to Rheumatology, pt did not go. He tells me he was in [place] and there they checked his uric acid and they told him it was elevated, he was given Allopurinol 300 mg that he was taking up until recently Repeat his Uric acid was within normal limits On today's exam there is no redness, no swelling, there is a small 2 x 2 cm area of protuberance/mass anterior left lower leg which is tender to palpation. This is a new finding Plan: Obtain an MRI of his left lower leg to rule a soft tissue mass Follow up with me after MRI. Pain of left thigh 12/28/2023 Assessment & Plan (04/30/2024 11:36 AM EDT): Pt also c/o pain on his left inner thigh and recently noted an area of protuberance on his right inner tight/ On exam there is a palpable mass left inner thigh aprox 4x4 cm, soft seems fatty when compared to the right. Tender to palpation, his entire inner thigh is tender to palpation MRI of left femur 03/22/2024 showed: IMPRESSION: LEFT FEMUR: 1. No mass or abnormal enhancement. 2. Multiple small lymph nodes in the region of the left thigh likely reactive. 3. Mild osteoarthritis of the left hip, unchanged compared with prior CT August 2021. 4. Incidental note made of mild osteoarthritis of the right hip, unchanged compared with prior CT August 2021. 5. Limited evaluation of the left knee joint. Possible mild arthrosis of the patellofemoral joint. Assessment & Plan (02/13/2024 12:58 PM EDT): Pt also c/o pain on his left inner thigh and recently noted an area of protuberance on his right inner tight/ On exam there is a palpable mass left inner thigh aprox 4x4 cm, soft seems fatty when compared to the right. Tender to palpation, his entire inner thigh is tender to palpation Previous visit I ordered an MRI of right femur soft tissues to evaluate the fatty mass, scheduled for 03/12/2024 Assessment & Plan (12/28/2023 4:24 PM EST): Pt also c/o pain on his left inner thigh and recently noted an area of protuberance on his right inner tight/ On exam there is a palpable mass left inner thigh aprox 4x4 cm, soft seems fatty when compared to the right. Tender to palpation, his entire inner thigh is tender to palpation Plan: MRI of right femur soft tissues to evaluate the fatty mass Follow up after test Class 1 obesity 06/15/2023 Iron deficiency anemia 06/15/2023 Assessment & Plan (06/15/2023 2:14 PM EDT): His blood work showed anemia Etiology ? previous visit I ordered Iron studies, B 12 and Folate, LDH, ESR unfortunately the order failed. Given persistently elevated D-dimer I had recommended pt be evaluated by Hematology,He was seen in April 2022 and was prescribed Iron and Vitamin C Of note pt had a colonoscopy 2019 and denies any upper GI symptoms Cervicogenic headache 06/15/2023 Assessment & Plan (06/15/2023 2:56 PM EDT): Pt with c/o posterior headaches Previous work up included a CT of his brain to r/o a subdural hematoma given persistent headaches that was negative and an EEG that was also negative carotid US. was unremarkable as well. Pt reports the headaches continue Plan: Will refer to Neurology Forgetfulness 06/15/2023 Assessment & Plan (09/12/2023 3:49 PM EST): Previous visit he had c/o being very forgetful ever since he underwent his CABG. Cannot travel on his own any more, does not remember places he used to be very familiar with. Pt was seen by neurology Dr. Cohen (last 02/19/2015) He initiate a work up and recommended an MRI ( Insurance denied it). 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 referred back to Neurology,seen 08/21/2023 started him on Meloxicam and Amitriptyline [address] of brain Assessment & Plan (06/15/2023 3:58 PM EDT): Previous visit he had c/o being very forgetful ever since he underwent his CABG. Cannot travel on his own any more, does not remember places he used to be very familiar with. Pt was seen by neurology Dr. Cohen (last 02/19/2015) He initiate a work up and recommended an MRI ( Insurance denied it). 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 referred back to Neurology Preventative health care 06/15/2023 Assessment & Plan (07/01/2025 11:13 AM EDT): PSA 05/06/2024 Normal Colonoscopy: 03/02/2017 Tubullovillous adenoma, Repeat 05/14/2020 showed diverticulosis, needs a repeat 2024 will refer back today Assessment & Plan (04/30/2024 11:47 AM EDT): ALEK: Declined PSA 04/02/2019 Normal Colonoscopy: 03/02/2017 Tubullovillous adenoma, Repeat 05/14/2020 showed diverticulosis only will need a repeat 2024 Assessment & Plan (12/28/2023 3:52 PM EST): ALEK: Declined PSA 04/02/2019 Normal Colonoscopy: 03/02/2017 Tubullovillous adenoma, Repeat 05/14/2020 showed diverticulosis only Assessment & Plan (06/15/2023 3:59 PM EDT): ALEK: Declined PSA 04/02/2019 Normal Colonoscopy: 02/2017 Tubullovillous adenoma, Repeat 05/14/2020 showed diverticulosis only Inguinal lymphadenopathy 09/15/2022 Male hypogonadism 09/15/2022 Assessment & Plan (06/15/2023 3:53 PM EDT): initial diagnostic work up to r/o Hypogonadism showed a low Testosterone level Pt was referred to Endocrinology appointment scheduled for 01/28/2020. It appears he did not go Pt was referred back , again did not go previous visit he was given a trial of Levitra Tubular adenoma of colon 09/15/2022 Assessment & Plan (04/30/2024 11:46 AM EDT): Colonoscopy: 03/02/2017 Tubullovillous adenoma, Repeat 05/14/2020 showed diverticulosis only Will need a repeat in 2024 Multiple nodules of lung 09/10/2015 Assessment & Plan (06/15/2023 3:56 PM EDT): CT of the chest done on 07/30/2015 showed: Multiple bilateral pulmonary nodules are seen. Some but not all are benign, calcified granulomas. The largest noncalcified nodule, in the right middle lobe, measures 4 mm. There is no sizable mediastinal or hilar adenopathy. There are calcified right pleural plaques, suggesting prior asbestos exposure. Please correlate clinically. Pt was referred to youth development specialist for evaluation and was seen last 12/01/[address] Garcia recommended to repeat CT chest 09/2016, Repeat CT 08/2017 showed stability: small calcified and noncalcified pulmonary nodules or micronodule. Stable left pleural calcification. Stable enlargement of the heart and post-CABG changes. Ankle pain 07/14/2015 Assessment & Plan (12/28/2023 4:21 PM EST): Pt with recurrent c/o pain on his left ankle, accompanied by intermittent swelling Etiology ? previous plain film of his left ankle 05/2021 showed soft tissue inflammation Previous work up included DENY, CRP, RF, Uric Acid all normal. pt was referred to Rheumatology, pt did not go. He tells me he was in [place] and there they checked his uric acid and they told him it was elevated, he was given Allopurinol 300 mg that he was taking up until recently Repeat his Uric acid was within normal limits On today's exam there is no redness, no swelling, there is a small 2 x 2 cm area of protuberance/mass anterior left lower leg which is tender to palpation. This is a new finding Plan: Obtain an MRI of his left lower leg to rule a soft tissue mass Follow up with me after MRI. Assessment & Plan (09/12/2023 3:29 PM EST): Pt with previous c/o pain on his left ankle accompanied by swelling and difficulty walking. Last visit he told me the swelling went away, and the pain is intermittent. Not constant Etiology ? previous plain film of his left ankle 05/2021 showed soft tissue inflammation Previous work up included DENY, CRP, RF, Uric Acid all normal. pt was referred to Rheumatology, pt did not go. He tells me he was in [place] and there they checked his uric acid and they told him it was elevated, he was given Allopurinol 300 mg that he was taking up until recently Will repeat his Uric acid f/u with me in 4 months Assessment & Plan (06/15/2023 3:51 PM EDT): Pt with previous c/o pain on his left ankle accompanied by swelling and difficulty walking. Today he tells me the selling went away, and the pain is intermittent. Not constant Etiology ? previous plain film of his left ankle 05/2021 showed soft tissue inflammation Previous work up included DENY, CRP, RF, Uric Acid all normal. pt was referred to Rheumatology, pt did not go. He tells me he was in [place] and there they checked his uric acid and they told him it was elevated, he was given a medication that I asked him to bring next time he comes in, he did not bring it f/u with me in 3 months Benign prostatic hyperplasia 07/14/2015 Assessment & Plan (12/28/2023 3:49 PM EST): Currently asymptomatic PSA 04/02/2019 Normal. Pt was seen by Dr. Mcdowell 02/05/2015 and underwent a TURP for BPH. Assessment & Plan (06/15/2023 3:57 PM EDT): Pt with previous c/o new onset of difficulty urinating, PSA 10/09/2014 Normal. Pt was referred to urology. he was seen by Dr. Mcdowell 02/05/2015 and underwent a TURP for BPH. Depressive disorder 07/24/2014 Assessment & Plan (06/15/2023 3:56 PM EDT): Hx of Depression and anxiety Pt not interested in psychotherapy Pt referred to our [facility] Clinician Pt reporting Insomnia , good results with Ambien Atherosclerosis of coronary artery 03/03/2014 Assessment & Plan (09/12/2023 3:05 PM EST): He is s/p quadruple coronary bypass graft surgery, performed at [facility], after STEMI on 02-23-14; Pt underwent cardiac rehabilitation at [facility]. Currently on Plavix. Pt under the care of [facility] last seen 09/14/2021 Myocardial perfusion scan 10/10/2019 showed: Basal inferolateral transmural infarct , Mild to moderate intensity ischemia of the lateral and mid and apical inferolateral wall. EF 72% Pt on Beta araceli, Plavix and Statin He had a cardiac cath at [facility] 11/2019 Under the care of Cardiology last seen: 07/2023 Dr Naqvi Assessment & Plan (06/15/2023 2:42 PM EDT): He is s/p quadruple coronary bypass graft surgery, performed at [facility], after STEMI on 02-23-14; Pt underwent cardiac rehabilitation at [facility]. Currently on Plavix. Pt under the care of [facility] last seen 09/14/2021 Myocardial perfusion scan 10/10/2019 showed: Basal inferolateral transmural infarct , Mild to moderate intensity ischemia of the lateral and mid and apical inferolateral wall. EF 72% Pt on Beta araceli, Plavix and Statin He had a cardiac cath at [facility] 11/2019 Under the care of Cardiology last seen: EKG today showed NSR, No acute ST T changes no changes from previous Chronic back pain 07/17/2012 Assessment & Plan (12/28/2023 3:44 PM EST): Pt with chronic low back pain as far back as 2008. Seen and evaluated by [facility] Last MRI Lumbar Spine (01/31/2012) showed slightly narrowing of the disc space associated with diffuse disc bulging along L5-S1 level causing slight narrowing of the spinal canal and neural foramina. No disc herniation, lateral recesses normal in size. Remainder of LS showed no abnormal signal intensity except form mild disc bulging without herniation along T12-L1 and L2-L3 levels. Last note from 2015 in regards to this specific problem Cervical radiculopathy 07/17/2012 Assessment & Plan (07/01/2025 11:07 AM EDT): Patient here for a follow up with c/o chronic neck pain with associated radiation to left upper extremity with numbness he has a hx of cervical spinal stenosis); and facet syndrome in both the cervical and lumbar spine. In the past have prescribed Tylenol # 3 prn for severe pain. in the past symptoms were suggestive of cervical radiculopathy. Pt was referred to [facility], and they recommended a trial of PT first. MRI of Cervical spine 03/2019 Showed: Multilevel cervical spondylosis. Multifactorial degenerative changes result in moderate central canal stenosis and flattening of the anterior cord at the C3- C4, C4-C5, and C5-C6 levels. At C6-C7, a small central disc protrusion slightly flattens anterior cord, resulting in mild central canal stenosis. Multifactorial degenerative changes result in severe right C4- C5, severe right C5-C6, and severe left C6-C7 foraminal stenosis. On a previous visit given his c/o left sided upper and lower extremity numbness I referred him to Neurology, appointment was scheduled for 09/2021. pt no showed. Repeat MRI of his cervical spine 11/10/2023 showed: Progressive cervical spondylosis with spondylitic changes resulting in worsening moderate to severe central canal stenosis at C3-C4 and C5-C6. Similar moderate central canal stenosis at C4-C5 and slightly worsening mild to moderate central canal stenosis at C6-C7. Varying degrees of moderate to severe foraminal stenosis throughout the cervical spine again noted. Pt was last seen by [facility] 01/22/2024, according to their note the steroid injection was not helpful so he was referred for a neurosurgical consultation with Dr. Barber at [facility]. He was seen by Dr. Posada 03/04/2024 his impression was that patient had a left upper extremity radiculopathy that failed conservative therapy, he mentions that imaging is consistent with progressive findings. He proposed a 4 level ACDF C3-4, C4-5, C5- 6, C6-7 Pt was seen by Dr Woodward 04/23/2025 who referred back to Dr. Barber and ordered a repeat MRI cervical spine. Pt has yet to do the MRI. Dr Barber wont see him until afterwards so referral is on hold Assessment & Plan (04/25/2025 9:10 PM EDT): Addendum 04/25/2025 :Referred already to NS but per referral sp -NS office requesting new MRI cervical spine prior to see pt . I am referring for new cervical MRI , for now NS referral is on hold until image is completed . Once test is completed will need to inform again to referral sp to continue with process Assessment & Plan (04/30/2024 11:56 AM EDT): Patient here for a follow up with c/o chronic neck pain with associated radiation to left upper extremity with numbness he has a hx of cervical spinal stenosis); and facet syndrome in both the cervical and lumbar spine. In the past have prescribed Tylenol # 3 prn for severe pain. in the past symptoms were suggestive of cervical radiculopathy. Pt was referred to [facility], and they recommended a trial of PT first. MRI of Cervical spine 03/2019 Showed: Multilevel cervical spondylosis. Multifactorial degenerative changes result in moderate central canal stenosis and flattening of the anterior cord at the C3- C4, C4-C5, and C5-C6 levels. At C6-C7, a small central disc protrusion slightly flattens anterior cord, resulting in mild central canal stenosis. Multifactorial degenerative changes result in severe right C4- C5, severe right C5-C6, and severe left C6-C7 foraminal stenosis. On a previous visit given his c/o left sided upper and lower extremity numbness I referred him to Neurology, appointment was scheduled for 09/2021. pt no showed. Repeat MRI of his cervical spine 11/10/2023 showed: Progressive cervical spondylosis with spondylitic changes resulting in worsening moderate to severe central canal stenosis at C3-C4 and C5-C6. Similar moderate central canal stenosis at C4-C5 and slightly worsening mild to moderate central canal stenosis at C6-C7. Varying degrees of moderate to severe foraminal stenosis throughout the cervical spine again noted. Pt was last seen by [facility] 01/22/2024, according to their note the steroid injection was not helpful so he was referred for a neurosurgical consultation with Dr. Barber at [facility]. He was seen by Dr. Posada 03/04/2024 his impression was that patient had a left upper extremity radiculopathy that failed conservative therapy, he mentions that imaging is consistent with progressive findings. He proposed a 4 level ACDF C3-4, C4-5, C5- 6, C6-7 Today patient tells me he recently returned [place] [facility] and he feels his neck pain improved with natural remedies. He at this point would like to postpone the surgery given that he cannot afford to stop working . He will contact Dr. Posada when he feels that he wants to proceed. Our MA contacted the office of Dr. Posada to communicate pt's intentions. Assessment & Plan (02/13/2024 1:06 PM EDT): Patient here for a follow up with previous c/o acute on chronic neck pain with associated radiation to left upper extremity with numbness he has a hx of cervical spinal stenosis); and facet syndrome in both the cervical and lumbar spine. In the past have prescribed Tylenol # 3 prn for severe pain. in the past symptoms were suggestive of cervical radiculopathy. Pt was referred to [facility], and they recommended a trial of PT first. MRI of Cervical spine 03/2019 Showed: Multilevel cervical spondylosis. Multifactorial degenerative changes result in moderate central canal stenosis and flattening of the anterior cord at the C3- C4, C4-C5, and C5-C6 levels. At C6-C7, a small central disc protrusion slightly flattens anterior cord, resulting in mild central canal stenosis. Multifactorial degenerative changes result in severe right C4- C5, severe right C5-C6, and severe left C6-C7 foraminal stenosis. On a previous visit given his c/o left sided upper and lower extremity numbness I referred him to Neurology, appointment was scheduled for 09/2021. pt no showed. Repeat MRI of his cervical spine 11/10/2023 showed: Progressive cervical spondylosis with spondylitic changes resulting in worsening moderate to severe central canal stenosis at C3-C4 and C5-C6. Similar moderate central canal stenosis at C4-C5 and slightly worsening mild to moderate central canal stenosis at C6-C7. Varying degrees of moderate to severe foraminal stenosis throughout the cervical spine again noted. Pt was last seen by [facility] 01/22/2024, according to their note the steroid injection was not helpful so he has now been referred for a surgical consultation Assessment & Plan (12/28/2023 2:20 PM EST): patient here for a follow up with previous c/o acute on chronic neck pain with associated radiation to left upper extremity with numbness he has a hx of cervical spinal stenosis); and facet syndrome in both the cervical and lumbar spine. In the past have prescribed Tylenol # 3 prn for severe pain. in the past symptoms were suggestive of cervical radiculopathy. Pt was referred to [facility], last seen by [facility] in 09/2021 and they recommended a trial of PT first. I ordered an MRI of the cervical spine but insurance denied it until pt tried PT first He completed the PT. MRI of Cervical spine 03/2019 Showed: Multilevel cervical spondylosis. Multifactorial degenerative changes result in moderate central canal stenosis and flattening of the anterior cord at the C3- C4, C4-C5, and C5-C6 levels. At C6-C7, a small central disc protrusion slightly flattens anterior cord, resulting in mild central canal stenosis. Multifactorial degenerative changes result in severe right C4- C5, severe right C5-C6, and severe left C6-C7 foraminal stenosis. On a previous visit given his c/o left sided upper and lower extremity numbness I referred him to Neurology, appointment was scheduled for 09/2021. pt no showed. Repeat MRI of his cervical spine 11/10/2023 showed: Progressive cervical spondylosis with spondylitic changes resulting in worsening moderate to severe central canal stenosis at C3-C4 and C5-C6. Similar moderate central canal stenosis at C4-C5 and slightly worsening mild to moderate central canal stenosis at C6-C7. Varying degrees of moderate to severe foraminal stenosis throughout the cervical spine again noted. Pt was last seen by [facility] 11/13/2023, has a follow up for steroid injection 01/03/2024 Assessment & Plan (09/12/2023 3:49 PM EST): patient here for a follow up with previous c/o acute on chronic neck pain with associated radiation to left upper extremity with numbness he has a hx of cervical spinal stenosis); and facet syndrome in both the cervical and lumbar spine. In the past have prescribed Tylenol # 3 prn for severe pain. in the past symptoms were suggestive of cervical radiculopathy. Pt was referred to [facility], last seen by [facility] in 09/2021 and they recommended a trial of PT first. I ordered an MRI of the cervical spine but insurance denied it until pt tried PT first He completed the PT. Last MRI on record is from Cervical spine 03/2019 Showed: Multilevel cervical spondylosis. Multifactorial degenerative changes result in moderate central canal stenosis and flattening of the anterior cord at the C3- C4, C4-C5, and C5-C6 levels. At C6-C7, a small central disc protrusion slightly flattens anterior cord, resulting in mild central canal stenosis. Multifactorial degenerative changes result in severe right C4- C5, severe right C5-C6, and severe left C6-C7 foraminal stenosis. On a previous visit given his c/o left sided upper and lower extremity numbness I referred him to Neurology, appointment was scheduled for 09/2021. pt no showed. It appears that this time he did keep appointment seen 08/21/2023 I had also ordered a repeat MRI of his cervical spine. This was apparently not done I asked my MA to facilitate this. Assessment & Plan (06/15/2023 2:53 PM EDT): patient with c/o acute on chronic neck pain with associated radiation to left upper extremity with numbness he has a hx of cervical spinal stenosis); and facet syndrome in both the cervical and lumbar spine. In the past have prescribed Tylenol # 3 prn for severe pain. in the past symptoms were suggestive of cervical radiculopathy. Pt was referred to [facility], last seen by [facility] in 09/2021 and they recommended a trial of PT first. I ordered an MRI of the cervical spine but insurance denied it until pt tried PT first He tells me he completed the PT. Last MRI on record is from Cervical spine 03/2019 Showed: Multilevel cervical spondylosis. Multifactorial degenerative changes result in moderate central canal stenosis and flattening of the anterior cord at the C3- C4, C4-C5, and C5-C6 levels. At C6-C7, a small central disc protrusion slightly flattens anterior cord, resulting in mild central canal stenosis. Multifactorial degenerative changes result in severe right C4- C5, severe right C5-C6, and severe left C6-C7 foraminal stenosis. On a previous visit given his c/o left sided upper and lower extremity numbness I referred him to Neurology, appointment was scheduled for 09/2021. pt no showed, will try to reschedule again , pt asked to please not miss appointment, pt verbalized understanding Erectile dysfunction 07/17/2012 HTN (hypertension) 07/17/2012 Assessment & Plan (07/01/2025 11:07 AM EDT): Pt here for a follow up BP controlled He is on a regimen of: Metoprolol Succinate ER 75 mg po daily ) and Lisinopril 20 mg po daily no longer on Amlodipine 5 mg po daily ( previously prescribed by Cardiology ) Most recent electrolytes, Bun and Creatinine done on: Lab Results Component Value Date NA 136 04/19/2025 NA 135 04/09/2025 K 4.7 04/19/2025 K 4.1 04/09/2025 CL 101 04/19/2025 CL 106 04/09/2025 BUN 15 04/19/2025 BUN 11 04/09/2025 CREATININE 0.99 04/19/2025 CREATININE 0.92 04/09/2025 were within normal limits. Plan: Continue current regimen patient advised to adhere to a low sodium diet, encouraged about medication compliance, counseled about weight loss. f/u 4 months Assessment & Plan (09/03/2024 11:45 AM EST): Pt here for a follow up BP controlled He is on a regimen of: Metoprolol Succinate ER 75 mg po daily ) and Lisinopril 20 mg po daily no longer on Amlodipine 5 mg po daily ( previously prescribed by Cardiology ) Most recent electrolytes, Bun and Creatinine done on: 05/06/2024 were within normal limits. Plan: Continue current regimen patient advised to adhere to a low sodium diet, encouraged about medication compliance, counseled about weight loss. f/u 4 months Assessment & Plan (04/30/2024 11:33 AM EDT): Pt here for a follow up BP controlled He is on a regimen of: Metoprolol Succinate ER 75 mg po daily ) and Lisinopril 20 mg po daily no longer on Amlodipine 5 mg po daily ( previously prescribed by Cardiology ) Most recent electrolytes, Bun and Creatinine done on: 06/19/2023 were within normal limits. Plan: Continue current regimen patient advised to adhere to a low sodium diet, encouraged about medication compliance, counseled about weight loss. f/u 4 months Assessment & Plan (12/28/2023 2:29 PM EST): Pt here for a follow up BP controlled He is on a regimen of: Metoprolol Succinate ER 75 mg po daily ) and Lisinopril 20 mg po daily no longer on Amlodipine 5 mg po daily ( previously prescribed by Cardiology ) Most recent electrolytes, Bun and Creatinine done on: 06/19/2023 were within normal limits. Plan: Continue current regimen patient advised to adhere to a low sodium diet, encouraged about medication compliance, counseled about weight loss. f/u 4 months Assessment & Plan (09/12/2023 3:08 PM EST): Pt here for a follow up He is on a regimen of: Metoprolol Succinate ER 75 mg po daily ) and Lisinopril 20 mg po daily no longer on Amlodipine 5 mg po daily ( previously prescribed by Cardiology Most recent electrolytes, Bun and Creatinine done on: 06/19/2023 were within normal limits. Plan: Continue current regimen patient advised to adhere to a low sodium diet, encouraged about medication compliance, counseled about weight loss. f/u 4 months Assessment & Plan (06/15/2023 2:12 PM EDT): Pt here for a follow up He is on a regimen of: Metoprolol Succinate ER 75 mg po daily ) and Lisinopril 20 mg po daily no longer on Amlodipine 5 mg po daily ( previously prescribed by Cardiology Most recent electrolytes, Bun and Creatinine done on: 08/30/2021 were within normal limits. Will repeat Plan: Continue current regimen patient advised to adhere to a low sodium diet, encouraged about medication compliance, counseled about weight loss. f/u 4 months Hyperlipidemia 07/17/2012 Assessment & Plan (09/12/2023 3:10 PM EST): Patient with elevated lipids. Most recent lipid profile from: 06/19/2023 Component Ref Range & Units 2 mo ago (06/19/23) 1 yr ago (10/04/21) 1 yr ago (10/04/21) Triglycerides <150 mg/dL 121 96 96 R Comment: Desirable Triglyceride: less than 150 mg/dLBorderline High Triglyceride 150-199 mg/dLHigh Triglyceride: 200-499 mg/dLVery High Triglyceride: greater than or equal to 5OO mg/dL Cholesterol <200 mg/dL 151 152 R Comment: Desirable Cholesterol: less than 200 mg/dLBorderline High Cholesterol: 200-239 mg/dLHigh Cholesterol: greater than 239 mg/dL LDL Cholesterol Calculated <100 mg/dL 96 Comment: Desirable LDL: less than 100 mg/dLNear Optimal/Above Optimal LDL: 110-129 mg/dLBorderline High LDL: 130-159 mg/dLHigh LDL: 160-189 mg/dLVery High LDL: greater than or equal to 190 mg/dL HDL Cholesterol >40 mg/dL 31 Low 32 Low R Currently on a regimen of Atorvastatin 40 mg po qhs For now will continue with current regimen. advised to try to adhere to a low cholesterol diet, counseled and educated about diet and exercise, Patient encouraged to come up with a personal goal for weight loss. Assessment & Plan (06/15/2023 3:55 PM EDT): Patient with elevated lipids. Most recent lipid profile from: 10/04/2021 shows a total cholesterol of: 152 triglycerides of: 96 HDL of: 32 and LDL of: 101 Currently on a regimen of Atorvastatin 40 mg po qhs For now will continue with current regimen. advised to try to adhere to a low cholesterol diet, counseled and educated about diet and exercise, Patient encouraged to come up with a personal goal for weight loss. Will repeat Lipid profile Resolved Problems Problem Noted Date Diagnosed Date Resolved Date Leg mass, left 12/28/2023 04/30/2024 Assessment & Plan (12/28/2023 4:25 PM EST): 2 x 2 cm left inner lower leg palpable mass/protuberance tender to palpation Plan: MRI Left lower extremity Mass of left thigh 12/28/2023 Assessment & Plan (12/28/2023 4:27 PM EST): On exam there is a palpable mass left inner thigh aprox 4 x 4 cm, soft seems fatty when compared to the right. Tender to palpation, his entire inner thigh is tender to palpation Plan: MRI of right femur soft tissues to evaluate the fatty mass Follow up after test Encounters Date Type Department Care Team Description 07/09/2025 Telephone [facility] [address] [place] [id number] Chris Sarah MD Durable Medical Equipment 07/03/[address] [address] Chris Sarah MD 07/03/2025 Telephone [facility] [place] [address] Chris Sarah MD Record Request 07/01/2025 11:00 AM EDT Office Visit [facility] [place] [address] Chris Sarah MD Primary hypertension (Primary Dx); Cervical radiculopathy; BRBPR (bright red blood per rectum); Preventative health care; Tubular adenoma of colon 07/01/2025 Travel from Last 3 Months Immunizations Immunization Administration Dates Next Due Influenza Injectable Quadriv alant Preservative Free IIV4 MDCK 07/12/2019 Influenza injectable quadriv alent IIV4 with preservative 07/13/2018,09/13/2016,10/13/2015 Influenza injectable quadriv alent preservative free 09/12/2023,09/16/2021 Influenza, IIV3, injectable 07/24/2014, 4,07/12/2011 Influenza, Split (incl. kim fied surface antigen) 11/08/2012 Influenza, seasonal, injecta ble, preservative free 09/03/2024 MMR 12/28/2005 Moderna Covid-19 Vaccine 12+ 10/05/2021,03/24/20 21,02/24/2021 Pfizer Covid-19 Vaccine 12+ 09/03/2024 Pneumococcal Polysaccharide PPSV23 02/27/2014 TD (adult), 2 Lf tetanus tox oid, preservative free, adsorbed 09/01/2004 Tdap 08/31/2017 Social History Tobacco Use Types Packs/Day Years Used Date Smoking Tobacco: Former Cigarettes Q uit: 04/23/1995 Passive Smoke Exposure: Past Smokeless Tobacco: Never Tobacco Cessation:Counseling Given: Not Answered Comments:30 YEARS AGO. Alcohol Answer Date Recorded [...] Access Answer Date Recorded Internet Access Q1 Yes 05/20/2025 Internet Access Q2 I do not want or need it 04/30 Sex and Gender Information Value Date Recorded Sex Assigned at Male 08/29/2022 10:15 AM EDT Legal Sex Male 10:15 AM EDT Gender Identity Male 08/29/2022 10:15 AM EDT Sexual Orientation Straight 08/29/2022 10 :15 AM EDT Last Filed Vital Signs Vital Sign Reading Time Taken Comments Blood Pressure 134/82 07/01/2025 11:18 AM EDT Pulse 74 07/01/2025 10:54 AM EDT Temperature 37.2 C (98.9 F) 07/01/2025 10:54 AM EDT Respiratory Rate 17 07/01/2025 10:54 AM EDT Oxygen Saturation 98% 07/01/2025 10:54 AM EDT Inhaled Oxygen Concentration - - Weight 91.7 kg (202 lb 3.2 oz) 07/01/2025 10:54 AM EDT Height 167.6 cm (5' 6 ) 04/23/2025 2:31 PM EDT Body Mass Index 32.64 04/23/2025 2:31 PM EDT Plan of Treatment Health Maintenance Due Date Last Done Comments CT Colonography 1963 FIT DNA/Cologuard 1963 FIT 1963 HIV Screening 1963 Sigmoidoscopy 1963 Disability Screening 1963 Hepatitis C Screening 1981 Zoster Vaccines (1 of 2) 2013 Pneumococcal Vaccine: 50+ Years (2 of 2 - PCV) 02/27/2015 02/27/2014 FOBT 03/30/2021 03/30/2020 RSV Patients and Patients Aged 60 years or older (1 - Risk 60-74 years 1-dose series) 2023 Colonoscopy 05/14/2025 05/14/2020 Colorectal Cancer Screening 05/14/2025 Influenza Vaccine (#1) 2025 , 09/12/2023, 09/16/2021, Additional history exists Alcohol/Substance Use Screening 09/03/2025 09/03/2024 Depression Screening 09/03/2025 09/03/2024, 09/03/20 24 SDOH Screening 05/20/2026 05/20/2025 Tobacco Screening 07/01/2026 07/01/2025 DTaP/Tdap/Td Vaccines (2 - Td or Tdap) 08/31/2027 08/31/2017, 09/01/2004 Lipid Panel 05/06/2029 05/06/2024, 05/31, 10/04/2021, Additional history exists COVID-19 Vaccine Completed 09/03/2024, 04/2021, 03/24/2021, Additional history exists HIB Vaccines Aged Out No longer eligi ble based on patient's age to complete this topic HPV Vaccines Aged Out No longer eligi ble based on patient's age to complete this topic Hepatitis A Vaccines Aged Out No long er eligible based on patient's age to complete this topic Hepatitis B Vaccines Aged Out No long er eligible based on patient's age to complete this topic IPV Vaccines Aged Out No longer eligi ble based on patient's age to complete this topic Meningococcal B Vaccine Aged Out No l onger eligible based on patient's age to complete this topic Meningococcal Vaccine Aged Out No damien thom eligible based on patient's age to complete this topic RSV under 20 months Aged Out No longe r eligible based on patient's age to complete this topic Rotavirus Vaccines Aged Out No longer eligible based on patient's age to complete this topic Procedures Procedure Name Priority Date/Time Associated Diagnosis Comments LIPID PANEL, STANDARD Routine 05/06/2024 9:44 AM EDT Primary hypertension HM COLONOSCOPY Routine 05/14/2020 2:46 PM EDT OCCULT BLOOD, FECAL, IMMUNOASSAY Routine 03/30/2020 2:52 PM EDT from Last 3 Months or Most Recently Relevant to Health Maintenance Results * (ABNORMAL) Lipid Panel, Standard (05/06/2024 9:44 AM EDT) Triglycerides 128 <150 mg/dL [facility] Comment:Desirable Triglyceri de: less than 150 mg/dLBorderline High Triglyceride 150-199 mg/dLHigh Triglyceride: 200-499 mg/dLVery High Triglyceride: greater than or equal to 5OO mg/dL Cholesterol 147 <200 mg/dL [facility] Comment:Desirable Cholestero l: less than 200 mg/dLBorderline High Cholesterol: 200-239 mg/dLHigh Cholesterol: greater than 239 mg/dL LDL Cholesterol Calculated 93 <100 mg/dL [facility] Comment:Desirable LDL: less than 100 mg/dLNear Optimal/Above Optimal LDL: 110- 129 mg/dLBorderline High LDL: 130-159 mg/dLHigh LDL: 160-189 mg/dLVery High LDL: greater than or equal to 190 mg/dL HDL Cholesterol 29(L) >40 mg/dL [facility] Comment:Desirable HDL: great er than 40 mg/dL Note: This HDL assay may give artificially low results in patients with liver disease. Blood Venous blood specimen / Unknown 05/06/2024 9:44 AM EDT 05/06/2024 10:51 AM EDT Chris Campbell MD LAB BLOOD ORDERABLES Final Result [facility] [address] [place] [phone] * Hm Colonoscopy (05/14/2020 2:46 PM EDT) Colonoscopy 2 to 3+ inflamed internal hemorrhoids, diverticulosis seen on CAT scan. No Historical Provider HEALTH MAINTENANCE Edited Result - Final * (ABNORMAL) OCCULT BLOOD STOOL (03/30/2020 2:52 PM EDT) OCCULT BLOOD STOOL POS(AA) [facility] 03/30/2020 2:52 PM EDT us Historical Provider LAB BODY FLUIDS AND STOOL S ORDERABLES Final Result [facility] [address] from Last 3 Months or Most Recently Relevant to Health Maintenance Insurance [employer] < 65 [place] [id number] [employer] < [address] [place] [id number] Care Teams Cell Liner Relationship Specialty Start Date End Date Chris Saarh MD [address] [place] [address] PCP - General Internal Medicine 06/13/14
--- OUTSIDE RECORDS SUMMARY | 2025-08-23 16:21 | XMS_ITS | Encounter Summary ---
Author Organization [employer] Address [address] [place] [address] Care Team Providers Care Licensed Final Expense Agents Name Role Phone Chris Sarah MD Primary Care Provide r Encounter Details Date Type Department Care Team (Latest Contact Info) Description 11/13/2018 Abstract [facility] CONVERSIONS Dental, Provider, DDS Social History Tobacco Use Types Packs/Day Years [...] on filedocumented in this encounter Care Teams Licensed Final Expense Agents Relationship Specialty Start Date End Date Chris Sarah MD [address] [place] [address] PCP - General Internal Medicine 06/13/14 documented as of this encounter
== END 2025-08-23 16:19 | disposition home or self-care (01) ==
LOC: HO.MRI 16:18
PROVIDERS: Visit Provider Student in an Organized Health Care Education/Training Program
DX: R42 Dizziness and giddiness (principal)
CPT/HCPCS: 70544; 70549; A9585

== ENCOUNTER → 2025-08-23 16:27 | Outpatient (BNV) | payer OTHER, SELFPAY | PROVIDERS: Visit Provider Radiology Diagnostic Radiology | DX: R42 Dizziness and giddiness (principal) | CPT/HCPCS: 70544; 70549 ==

== ENCOUNTER 2025-09-06 14:39 | Emergency (ER) | payer OTHER, SELFPAY ==
--- NOTE | ~2025-09-06 | CT_ITS ---
CLINICAL HISTORY: abd pain, Leukocytosis,appy,diverticulitis,colitis Exam: Contrast-enhanced CT abdomen and pelvis with multiplanar reformats. Comparison: 04/09/2025. Findings: CT abdomen: Lung bases are clear. Liver is free of focal lesions and ductal dilatation. Gallbladder appears unremarkable. Spleen is unremarkable. Pancreas and adrenal glands appear unremarkable. Kidneys appear unremarkable. No free intraperitoneal fluid or retroperitoneal masses or adenopathy. Abdominal aorta is normal caliber with mild calcific athero sclerosis. Bowel loops reveal no abnormal wall thickening or distention. The appendix is unremarkable. No significant diverticular disease. CT pelvis: Prostate gland measures 5.3 cm transverse dimension. Urinary bladder is free of filling defects. No pelvic masses, fluid or adenopathy. Osseous structures reveal no destructive osseous lesions. Impression: 1. No acute abnormality or CT explanation for abdominal pain and leukocytosis. This document has been electronically signed by: Amadou Jimenez MD on 09/06/2025 20:37:53
[2025-09-06 14:55] VITALS: BP 127/61; PULSE 87; RESP 18; TEMP 37.2; O2SAT 97; BMI 32.1
--- NOTE | 2025-09-06 14:55 | ED.GENADULT ---
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 Perry HPI narrative: a 60-year-old male PMHx HLD came in for evaluation of 3 days of diffuse abdominal pain mostly in the mid abdomen, pain has been constant for the past 3 days worse with eating or drinking any kind food or drink, no clear relieving factor, declined any past intra-abdominal surgical history, normal bowel movement this morning described as hard bowel movement, no blood in the stool, +nausea but no vomiting, patient also describes dysuria, frequency urination but no blood in the urine. No fever, no chills, no history of alcohol consumption. Patient was seen by GI in the past for GERD patient is taking pantoprazole. Related Data Home Medications ?Medication ?Instructions ?Recorded ?Confirmed atorvastatin 40 mg tablet 40 mg PO BEDTIME 12/09/20 06/06/22 clopidogrel 75 mg tablet (Plavix) 75 mg PO DAILY 12/09/20 06/06/22 aspirin 81 mg chewable tablet 1 tab PO DAILY 08/16/21 06/06/22 lisinopril 20 mg tablet 20 mg PO QAM 08/16/21 06/06/22 metoprolol succinate 50 mg 50 mg PO DAILY 08/16/21 06/06/22 tablet,extended release 24 hr (Toprol XL) zolpidem 10 mg tablet 10 mg PO BEDTIME PRN insomnia 08/16/21 06/06/22 Previous Rx's ?Medication ?Instructions ?Recorded cephalexin 500 mg capsule 500 mg PO QID 10 days #40 caps 06/18/21 doxycycline monohydrate 100 mg 100 mg PO BID 10 days #20 caps 06/18/21 capsule oxycodone-acetaminophen 5 mg-325 1 tab PO Q6H PRN pain #10 tabs 06/18/21 mg tablet (Percocet) hydrocortisone 2.5 % topical cream 1 appl AR BID-QID PRN hemorrhoids 09/17/21 with perineal applicator #30 grams (Proctosol HC) pantoprazole 40 mg tablet,delayed 40 mg PO DAILY #30 tabs 09/17/21 release sennosides 8.6 mg tablet (Natural 8.6 mg PO BEDTIME constipation #30 09/17/21 Senna Laxative) tabs docusate sodium 100 mg capsule 100 mg PO BEDTIME #90 caps 12/17/21 ferrous fumarate 200 mg (65 mg 1 tab PO BID #60 tabs 12/17/24 iron)-vit C 25 mg tablet,extend release (Nenita-Sequels (iron-vit c)) acetaminophen 325 mg capsule 325 mg PO QID PRN pain #28 caps 04/09/25 cyclobenzaprine 10 mg tablet 10 mg PO TID PRN muscle spasm #15 04/09/25 tabs prednisone 20 mg tablet 40 mg (2 x 20 mg) PO DAILY 5 days 04/09/25 #10 tabs sucralfate 1 gram tablet (Carafate) 1 g PO BID #14 tabs 09/06/25 Allergies Allergy/AdvReac Type Severity Reaction Status Date / Time No Known Allergies (No Known Allergy Verified 09/06/25 15:01 Allergies*) Review of Systems Review of Systems: all other systems are reviewed and are negative Constitutional: Reports as per HPI and Reports no additional constitutional complaints Eyes: Reports as per HPI and Reports no additional eye complaints Reports system reviewed and no additional complaints, except as documented Cardiovascular: Reports as per HPI and Reports no additional cardiovascular complaints Respiratory: Reports as per HPI and Reports no additional respiratory complaints Gastrointestinal: Reports as per HPI and Reports no additional gastrointestinal complaints Genitourinary: Reports no additional female genitourinary complaints Musculoskeletal: Reports no additional musculoskeletal complaints Skin/Breast: Reports system reviewed and no additional complaints, except as docu Psychiatric: Reports no additional psychiatric complaints Endocrine: Reports no additional endocrine complaints Hematologic/Lymphatic: Reports no additional hematologic/lymphatic complaints Allergic/Immunologic: Reports no additional allergic/immunologic complaints Reports system reviewed and no additional complaints, except as documented and Reports Abnormal speech present [facility] Past Medical History Medical History Bleeding hemorrhoids Internal hemorrhoids GERD (gastroesophageal reflux disease) Surgical History Hx of transurethral resection of prostate Hx of CABG Hx of colonoscopy Social History Social History Household Members: Spouse Housing: House Alcohol intake: unknown Patient Tobacco Use Status: Never used Tobacco Smoked in Last 30 Days: No Use of substances other than those prescribed or required for medical reasons: No Advance Directives: No Advance Directives Information Provided: Yes service: No Current occupational status: disabled Physical Exam ED Vital Signs: Vital Signs - 24 hr 09/06/25 14:55 09/06/25 18:26 Temperature 98.9 F 98.7 F Pulse Rate 87 81 Respiratory Rate 18 16 Blood Pressure 127/61 134/60 Pulse Oximetry 97 98 Oxygen Delivery Method Room Air Room Air BMI result Body Mass Index 32.1 Vital signs have been reviewed and appear to be correct. Blood pressure elevated. Heart rate normal. Respiratory rate normal. Temperature normal. Oxygen saturation normal. Appearance: Alert. Oriented X3. No acute distress. Head: Normal external exam. Normocephalic. Atraumatic. No Castro signs noted. No raccoon eyes noted Eyes: PERRLA. EOMI. Conjunctiva and sclera normal. Eyelids normal. ENT: TM's Normal. Pharynx normal. Uvula midline. Moist mucous membranes. No trismus noted. No drooling noted. No muffled voice noted. Neck: Normal inspection. Neck supple. FROM. No adenopathy. Thyroid Normal. No meningeal signs. No neck mass noted. CVS: Normal heart rate and rhythm. Heart sound normal. No murmurs noted. Pulses normal throughout. Respiratory: No respiratory distress. Painless inspiration. Breath sounds normal. No wheezes/rales/rhonchi noted. Chest nontender. No accessory muscle usage noted or decreased air movement noted. Abdomen: Soft and nontender. Bowel sounds normal in all 4 quadrants. No distention noted. No organomegaly noted. No visible injury noted. Back: No CVA tenderness. Full range of motion noted. Skin: Skin warm and dry. Normal skin color. Normal skin turgor. No rashes/lesions/lacerations noted. Extremities: No lower extremity edema. Extremities exhibit normal range of motion. Extremities nontender. Neuro: Oriented X 3. Cranial nerve exam: II-XII are grossly intact No motor deficit. No sensory deficit. Reflexes normal. Course Course Course Narrative: Medical screening exam performed. Please refer to detailed history, exam, evaluation, and management by primary provider. Reevaluation(s) Reevaluation #1: Abdominal pain, GERD patient is already using PPI as an outpatient, labs is significant for leukocytosis, CT of the abdomen and pelvis reveals no acute intra-abdominal pathology. Patient overall feels better after was given PPI and Maalox. Patient was instructed to reschedule an appointment with GI for further re-evaluation. Time: 21:04 Medications Administered Discontinued Medications Generic Name Dose Route Start Last Admin Trade Name [place] PRN Reason Stop Dose Admin Al Hydroxide/Mg Hydroxide 30 ml 09/06/25 18:47 09/06/25 19:06 Magnesium Hydrox/Alum Hydrox 30 Ml Oral.Susp PO 09/06/25 18:48 30 ml ONCE ONE Administration Iohexol 100 ml 09/06/25 19:44 09/06/25 19:44 Iohexol 350 Mg/Ml 100 Ml Infus..Btl IV 09/06/25 19:45 85 ml ONCE ONE Administration Pantoprazole Sodium 40 mg 09/06/25 18:47 09/06/25 19:06 Pantoprazole Sodium 40 Mg/10 Ml Vial IVPUSH 09/06/25 18:48 40 mg ONCE ONE Administration Sucralfate 1 gm 09/06/25 18:47 09/06/25 19:06 Sucralfate Oral Suspension 1 Gm/10 Ml Oral.Susp PO 09/06/25 18:48 1 gm ONCE ONE Administration Medical Decision Making Differential Diagnosis Differential Diagnoses: The differential diagnosis associated with the presentation includes ( Pancreatitis, colitis, diverticulitis, acute appendicitis, gastritis, GERD, esophagitis, electrolyte derangement, severe anemia.) Admission/Observation Consideration of admission/observation: Escalation of care including admission/observation considered Lab Data MDM Lab Attestation statement: I reviewed the patient's lab results. 09/06/25 15:13 09/06/25 15:13 Labs: Lab Results 09/06/25 Range/Units 15:13 WBC 13.3 H (4.8-10.8) X10*3/uL RBC 5.32 (4.60-5.80) X10*6/uL Hgb 15.2 (14.0-18.0) g/dl Hct 45.1 (42.0-52.0) % MCV 84.8 (80.0-98.0) fL MCH 28.6 (27.0-33.0) pg MCHC 33.7 (31.0-36.0) g/dl RDW 14.6 (11.0-16.0) % Plt Count 205 (160-400) X10*3/uL MPV 10.5 (9.4-12.4) fL Immature Gran % (Auto) 1.4 H (0.0-0.4) % Neut % (Auto) 72.9 (45-73) % Lymph % (Auto) 16.6 L (20-40) % [place] % (Auto) 8.0 (2-11) % Eos % (Auto) 1.0 (0-4) % Baso % (Auto) 0.1 (0-2) % Lymph # (Auto) 2.2 (1.2-4.9) X10*3/uL [place] # (Auto) 1.1 (0.1-1.2) X10*3/uL Eos # (Auto) 0.1 (0.0-0.4) X10*3/uL Baso # (Auto) 0.0 (0.0-0.2) X10*3/uL Abs Immat Gran (auto) 0.18 H (0.00-0.03) X10*3/uL Absolute Neuts (auto) 9.7 H (2.0-8.3) x10*3/uL Absolute Nucleated RBC 0.000 (0.0-0.012) X10*3/uL Nucleated RBC % (auto) 0.0 (0.0-0.2) /100WBC Sodium 132 L (135-145) mmol/L Potassium 4.5 (3.3-5.1) mmol/L Chloride 99 (96-108) mmol/L Carbon Dioxide 24 (22-29) mmol/L Anion Gap 14 (12-20) BUN 18 H (9-16) mg/dL Creatinine 0.98 (0.5-1.4) mg/dL Estim Creat Clear Calc 82.2 Estimated GFR > 60 Random Glucose 124 H (60-115) mg/dL Calcium 8.5 D (8.4-10.2) mg/dL Total Bilirubin 0.6 (0.0-1.0) mg/dL AST 37 (5-37) U/L ALT 61 H (0-40) U/L Alkaline Phosphatase 79 (39-117) U/L Total Protein 6.9 (6.5-8.0) g/dL Albumin 3.9 (3.5-5.0) g/dL Lipase 46 (8-78) U/L Urine Color Yellow Urine Appearance Clear Urine pH 6.0 (5.0-9.0) Ur Specific [place] 1.015 (1.005-1.025) Urine Protein Negative (Neg-Trace) mg/dL Urine Glucose (UA) Negative (Negative) mg/dL Urine Ketones Negative (Negative) mg/dL Urine Blood Negative (Negative) Urine Nitrite Negative (Negative) Ur Leukocyte Esterase Negative (Negative) Independent Interpretation I performed an independent interpretation of an: CT Scan ( Abdomen and pelvis: No acute intra-abdominal pathology.) Radiology Impression Discussion of test interpretation with radiology: I have reviewed the radiologist's reading. Discharge Plan Discharge Clinical Impression: GERD (gastroesophageal reflux disease) Qualifiers: Esophagitis presence: esophagitis presence not specified Qualified Code(s): K21.9 - Gastro-esophageal reflux disease without esophagitis Patient Disposition: Home, Self-Care Instructions: Diet for Stomach Ulcers and Gastritis (ED) Prescriptions: New sucralfate [Carafate] 1 gram tablet 1 g PO BID Qty: 14 0RF No Action Nenita-Sequels (iron-vit c) 200 mg (65 mg iron)-25 mg Tablet Extended Release 1 tab PO BID Qty: 60 6RF doxycycline monohydrate 100 mg capsule 100 mg PO BID 10 Days Qty: 20 0RF cephalexin 500 mg capsule 500 mg PO QID 10 Days Qty: 40 0RF oxycodone-acetaminophen [Percocet] 5-325 mg tablet 1 tab PO Q6H PRN (Reason: pain) Qty: 10 0RF prednisone 20 mg tablet 40 mg PO DAILY 5 Days Qty: 10 0RF cyclobenzaprine 10 mg tablet 10 mg PO TID PRN (Reason: muscle spasm) Qty: 15 0RF Rx Instructions: side effect is drowsiness. Do not take at work or while driving acetaminophen 325 mg capsule 325 mg PO QID PRN (Reason: pain) Qty: 28 0RF lisinopril 20 mg tablet 20 mg PO QAM metoprolol succinate [Toprol XL] 50 mg tablet extended release 24 hr 50 mg PO DAILY zolpidem 10 mg tablet 10 mg PO BEDTIME PRN (Reason: insomnia) aspirin 81 mg tablet,chewable 1 tab PO DAILY clopidogrel [Plavix] 75 mg tablet 75 mg PO DAILY atorvastatin 40 mg tablet 40 mg PO BEDTIME pantoprazole 40 mg tablet,delayed release (DR/EC) 40 mg PO DAILY Qty: 30 4RF hydrocortisone [Proctosol HC] 2.5 % cream with perineal applicator 1 appl AR BID-QID PRN (Reason: hemorrhoids) Qty: 30 2RF sennosides [Natural Senna Laxative] 8.6 mg tablet 8.6 mg PO BEDTIME Qty: 30 3RF docusate sodium 100 mg capsule 100 mg PO BEDTIME Qty: 90 5RF Referrals: Chris Phoenix MD [Primary Care Provider, Medical] Interventions: ED Discharge Assessment Last Done: 09/06/25 21:47 Discharge Date/Time: 09/06/25 21:48 Print Language: Taiwanese
--- NOTE | 2025-09-06 14:56 | ECG_ITS ---
Test Reason : ABDOMINAL PAIN Blood Pressure : */* mmHG Vent. Rate : 79 BPM Atrial Rate : 79 BPM P-R Int : 148 ms QRS Dur : 76 ms QT Int : 356 ms P-R-T Axes : 30 -16 67 degrees QTcB Int : 408 ms Normal sinus rhythm Inferior infarct (cited on or before 27-Feb-2015) Abnormal ECG When compared with ECG of 19-Apr-2025 11:01, No significant change was found Referred By: Chencho Francis Electronically Signed By: Louis Bella
[2025-09-06 15:19] LABS: MANUAL DIFF FLAG NO
[2025-09-06 15:24] LABS: Hematocrit 45.1 % (42.0-52.0); Hemoglobin 15.2 g/dl (14.0-18.0); Imm Gran Abs Auto 0.18 X10*3/uL (0.00-0.03); Imm Gran Pct Auto 1.4 % (0.0-0.4); Lymphocytes Absolute Auto 2.2 X10*3/uL (1.2-4.9); Mean Corpuscular HGB Conc 33.7 g/dl (31.0-36.0); Mean Corpuscular Hemoglobin 28.6 pg (27.0-33.0); Mean Corpuscular Volume 84.8 fL (80.0-98.0); NRBC Abs Auto 0.000 X10*3/uL (0.0-0.012); NRBC Pct Auto 0.0 /100WBC (0.0-0.2); Platelet Count 205 X10*3/uL (160-400); Red Blood Count 5.32 X10*6/uL (4.60-5.80); White Blood Count 13.3 X10*3/uL (4.8-10.8)
[2025-09-06 15:32] LABS: Appearance Urine Clear; Glucose Urine UA Negative (Negative); PH 6.0 (5.0-9.0); Specific Gravity - Urine 1.015 (1.005-1.025)
[2025-09-06 15:51] LABS: Alanine Aminotransferase 61 U/L (0-40); Albumin Level 3.9 g/dL (3.5-5.0); Alkaline Phosphatase 79 U/L (39-117); Anion Gap 14 (12-20); Aspartate Amino Transferase 37 U/L (5-37); Blood Urea Nitrogen 18 mg/dL (9-16); Calcium 8.5 mg/dL (8.4-10.2); Carbon Dioxide 24 mmol/L (22-29); Chloride 99 mmol/L (96-108); Creatinine Clr Calc Pharmacy 82.2; Estimated Glomerular Filt Rate > 60; Potassium 4.5 mmol/L (3.3-5.1); Sodium 132 mmol/L (135-145); Total Protein 6.9 g/dL (6.5-8.0)
[2025-09-06 17:04] LABS: Lipase 46 U/L (8-78)
[2025-09-06 18:26] VITALS: BP 134/60; PULSE 81; RESP 16; TEMP 37.1; O2SAT 98
[2025-09-06] MEDS: Magnesium Hydrox/Alum Hydrox 30 ML ORAL.SUSP PO (19:06)
[2025-09-06] MEDS: Sucralfate Oral Suspension 1 GM/10 ML ORAL.SUSP PO (19:06)
--- OUTSIDE RECORDS SUMMARY | 2025-09-06 19:18 | XMS_ITS | Clinical Summary ---
Author Organization [facility] Address [address] [place] [address] Care Team Providers Care Gemologist Name Role Phone Pcp, No Primary Care [...] patient's age to complete this topic Insurance [facility] [place] [place] Member Subscriber Plan / Payer (Ef fective 2016-Present) Name:Matteo Alberto Member ID:[id number] Relation to Subscriber:Self Name:Matteo Alberto Subscriber ID:[id number] Payer ID:Not on file Group ID:Not on file Type:Not on file Address: [address] MEDICARE OUT OF NETWORK on file Care Teams Gemologist Relationship Specialty Start Date End Date Pcp, Sissy PCP - General General Medicine 12/28/20
--- OUTSIDE RECORDS SUMMARY | 2025-09-06 19:18 | XMS_ITS | Encounter Summary ---
Author Organization [facility] [employer] Address [address] [facility] [address] [place] [address] Care Team Providers Care Bouffant Curtain Machine Tender Name Role Phone Chris Sarah MD Primary Care Provide r Reason for Visit * Reason Comments Med Refill Encounter Details Date Type Department Care Team ([facility] st Contact Info) Description 10/10/2024 Refill [facility] [address] [place] [address] Chris Sarah MD [address] [place] [address] Social History Tobacco Use Types Packs/Day Years [...] documented as of this encounter Care Teams Bouff[employer] Curtain Machine Tender Relationship Specialty Start Date End Date Chris Sarah MD [address] [place] [id number] PCP - General Internal Medicine 06/13/14 documented as of this encounter
--- OUTSIDE RECORDS SUMMARY | 2025-09-06 19:18 | XMS_ITS | Clinical Summary ---
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 He tells me he was in [facility] and there they checked his uric acid [...] Please correlate clinically. Pt was referred to secretary specialist for evaluation and was seen last [...] interested in psychotherapy Pt referred to our [facility] Clinician Pt reporting Insomnia , good results with Ambien Atherosclerosis of coronary artery 03/03/2014 Assessment & Plan (09/12/2023 3:05 PM EST): He is s/p quadruple coronary bypass graft surgery, performed at [facility], after STEMI on 02-23-14; Pt underwent cardiac rehabilitation at [facility]. Currently on Plavix. Pt under the care of [facility] last seen 09/14/2021 Myocardial perfusion scan 10/10/2019 showed: Basal inferolateral transmural infarct , Mild to moderate intensity ischemia of the lateral and mid and apical inferolateral wall. EF 72% Pt on Beta araceli, Plavix and Statin He had a cardiac cath at [facility] 11/2019 Under the care of Cardiology last seen: 07/2023 Dr Naqvi Assessment & Plan (06/15/2023 2:42 PM EDT): He is s/p quadruple coronary bypass graft surgery, performed at [facility], after STEMI on 02-23-14; Pt underwent cardiac rehabilitation at [facility]. Currently on Plavix. Pt under the care of [facility] last seen 09/14/2021 Myocardial perfusion scan 10/10/2019 showed: Basal inferolateral transmural infarct , Mild to moderate intensity ischemia of the lateral and mid and apical inferolateral wall. EF 72% Pt on Beta araceli, Plavix and Statin He had a cardiac cath at [facility] 11/2019 Under the care of Cardiology last [...] a neurosurgical consultation with Dr. Barber at [facility]. He was seen by Dr. Posada 03/04/2024 [...] a neurosurgical consultation with Dr. Barber at [facility]. He was seen by Dr. oPsada 03/04/2024 his impression was that patient had a left upper extremity radiculopathy that failed conservative therapy, he mentions that imaging is consistent with progressive findings. He proposed a 4 level ACDF C3-4, C4-5, C5- 6, C6-7 Today patient tells me he recently returned from [place] [facility] and he feels his neck pain improved [...] Encounters Date Type Department Care Team Description 09/06/2025 Orders Only GENERIC EXTERNAL DATA DEPARTMENT Provider, Generic External Data 09/02/2025 Telephone [facility] [place] [address] Chris Sarah MD October08/28/2025 Results Follow-Up [facility] [address] [place] [address] Odalys Ward MD MRA Head w/o Contrast 08/28/2025 Orders Only [facility] [address] [place] [address] Odalys Ward MD Abnormal MRA, brain (Primary Dx) 07/09/2025 Telephone [facility] [address] [place] [address] Chris Sarah MD Durable Medical Equipment 07/03/2025 Telephone [facility] [address] [place] [address] Chris Sarah MD 07/03/2025 Telephone [facility] [address] [place] [address] Chris Sarah MD Record Request 07/01/2025 11:00 AM EDT Office Visit [facility] [address] [place] [address] Chris Sarah MD Primary hypertension (Primary Dx); [...] Answer Date Recorded Internet Access Q1 Yes 08/26/2025 Internet Access Q2 Not on file 08/26/2025 Sex and Gender Information Value Date Recorded [...] Screening 1965 Sigmoidoscopy 1965 Disability Screening 1965 Alcohol/Substance Use Screening 1975 Hepatitis C Screening 1981 Zoster Vaccines (1 of 2) 2013 Pneumococcal Vaccine: 50+ Years (2 of 2 - PCV) 02/27/2015 02/27/2014 FOBT 03/30/2021 03/30/2020 RSV Patients and Patients Aged 60 years or older (1 - Risk 60-74 years 1-dose series) 2023 Colonoscopy 05/14/2025 05/14/2020 Colorectal Cancer Screening 05/14/2025 Influenza Vaccine (#1) 2025 , 09/12/2023, 09/16/2021, Additional history exists Depression Screening 09/03/2025 09/03/2024, 09/03/20 24 SDOH [...] Procedure Name Priority Date/Time Associated Diagnosis Comments LIPASE Routine 09/06/2025 3:13 PM EST URINALYSIS WITH REFLEX TO MICROSCOPIC Routine 09/06/2025 3:13 PM EST COMPREHENSIVE METABOLIC PANEL Routine 09/06/2025 3:13 PM EST CBC WITH AUTO DIFFERENTIAL Routine 09/06/2025 3:13 PM EST MRA NECK W AND WO CONTRAST Routine 08/26/2025 2:40 PM EDT Vertigo MRA HEAD WO CONTRAST Routine 08/26/2025 9:39 AM EDT Vertigo LIPID PANEL, STANDARD Routine 05/06/2024 9:44 AM EDT Primary hypertension HM COLONOSCOPY Routine 05/14/2020 2:46 PM EDT OCCULT BLOOD, FECAL, IMMUNOASSAY Routine 03/30/2020 2:52 PM EDT from Last 3 Months or Most Recently Relevant to Health Maintenance Results * Urinalysis with Reflex to Microscopic (09/06/2025 3:13 PM EST) Color Urine Yellow [facility] Appearance Urine Clear [facility] PH 6.0 5.0 - 9.0 [facility] Glucose Urine UA Negative Negative mg/dL [facility] Urine Blood Negative Negative [facility] Specific [place] - Urine 1.015 1.005 - 1.025 [facility] Urine Protein Negative Neg-Trace mg/dL [facility] Urine Ketones Negative Negative mg/dL [facility] Nitrite Urine Negative Negative [facility] Leukocyte Esterase Urine Negative Negative [facility] 09/06/2025 3:13 PM EST 09/06/2025 3:18 PM EST us Generic External Data Provider LAB URINE ORDERAB LES Final Result [facility] [address] [place] [address] [phone] * (ABNORMAL) CBC auto differential (09/06/2025 3:13 PM EST) White Blood Count 13.3(H) 4.8 - 10.8 X10*3/uL [facility] Red Blood Count 5.32 4.60 - 5.80 X10*6/uL [facility] Hemoglobin 15.2 14.0 - 18.0 g/dl [facility] Hematocrit 45.1 42.0 - 52.0 % [facility] Mean Corpuscular Volume 84.8 80.0 - 98.0 fL [facility] Mean Corpuscular Hemoglobin 28.6 27.0 - 33.0 pg [facility] Mean Corpuscular HGB Conc 33.7 31.0 - 36.0 g/dl [facility] Red Cell Distribution Width 14.6 11.0 - 16.0 % [facility] Platelet Count 205 160 - 400 X10*3/uL [facility] Mean Platelet Volume 10.5 9.4 - 12.4 fL [facility] Neutrophils Percent Auto 72.9 45 - 73 % [facility] Imm Gran Pct Auto 1.4(H) 0.0 - 0.4 % [facility] Lymphocytes Percent Auto 16.6(L) 20 - 40 % [facility] Monocytes Percent Auto 8.0 2 - 11 % [facility] Eosinophils Percent Auto 1.0 0 - 4 % [facility] Basophils Percent Auto 0.1 0 - 2 % [facility] NRBC Pct Auto 0.0 0.0 - 0.2 /100WBC [facility] Neutrophils Absolute Auto 9.7(H) 2.0 - 8.3 x10*3/uL [facility] Imm Gran Abs Auto 0.18(H) 0.00 - 0.03 X10*3/uL [facility] Lymphocytes Absolute Auto 2.2 1.2 - 4.9 X10*3/uL [facility] Monocytes Absolute Auto 1.1 0.1 - 1.2 X10*3/uL [facility] Eosinophils Absolute Auto 0.1 0.0 - 0.4 X10*3/uL [facility] Basophils Absolute Auto 0.0 0.0 - 0.2 X10*3/uL [facility] NRBC Abs Auto 0.000 0.0 - 0.012 X10*3/uL [facility] 09/06/2025 3:13 PM EST 09/06/2025 3:18 PM EST us Generic External Data Provider LAB BLOOD ORDERAB LES Final Result Performing Organization Address [facility]/ZIP Co de Phone Number [facility] [address] [place] [phone] * Lipase (09/06/2025 3:13 PM EST) Lipase 46 8 - 78 U/L [facility] 09/06/2025 3:13 PM EST 09/06/2025 3:18 PM EST Generic External Data Provider LAB BLOOD ORDERAB LES Final Result Performing Organization Address [facility] Co de Phone Number [facility] [address] [place] [phone] * (ABNORMAL) Comprehensive Metabolic Panel (09/06/2025 3:13 PM EST) Sodium 132(L) 135 - 145 mmol/L [facility] Potassium 4.5 3.3 - 5.1 mmol/L [facility] Comment:Mild Hemolysis.Inter pret result with caution Chloride 99 96 - 108 mmol/L [facility] Carbon Dioxide 24 22 - 29 mmol/L [facility] Anion Gap 14 12 - 20 [facility] Urea Nitrogen (BUN) 18(H) 9 - 16 mg/dL [facility] Creatinine, Serum 0.98 0.5 - 1.4 mg/dL [facility] Creatinine Clr Calc Pharmacy 82.2 [facility] Comment:eGFR (calculated fro m the MDRD study equation) and eCrCl(calculated from the Cockcroft-Gault equation) are based ondifferent parameters and may not yield comparable results.If eCrCl result is absurd, please check patient'sheight/weight. Estimated Glomerular Filt Rate >60 [facility] Comment:Chronic Kidney Disea se: Estimated GFR < 60 mL/min/1.83x7Jajzja Kidney Disease: Estimated GFR < 15 mL/min/1.73m2 Glucose 124(H) 60 - 115 mg/dL [facility] Calcium 8.5 8.4 - 10.2 mg/dL [facility] Bilirubin, Total 0.6 0.0 - 1.0 mg/dL [facility] Aspartate Amino Transferase 37 5 - 37 U/L [facility] Comment:Mild Hemolysis.Inter pret result with caution Alanine Aminotransferase 61(H) 0 - 40 U/L [facility] Total Protein 6.9 6.5 - 8.0 g/dL [facility] Comment:Mild Hemolysis.Inter pret result with caution Albumin Level 3.9 3.5 - 5.0 g/dL [facility] Alkaline Phosphatase 79 39 - 117 U/L [facility] 09/06/2025 3:13 PM EST 09/06/2025 3:18 PM EST us Generic External Data Provider LAB BLOOD ORDERAB LES Final Result [facility] [address] [place] [phone] [phone] * MRA Neck w/ and w/o Contrast (08/26/2025 2:40 PM EDT) Anatomical Region Laterality Modality Head, Neck Magnetic Resonan ce 08/26/2025 2:40 PM EDT Narrative 08/26/2025 2:41 PM EDT [address] [address] Magnetic Resonance Report Signed Patient: Matteo Alberto MR#: [id number] : 1965 Acct:[id number] Age/Sex: 60 / M ADM Date: 08/23/25 Loc: HO.MRI Attending Dr: Odalys Germain MD Ordering Physician: Odalys Ward MD Date of Service: 08/23/25 Procedure(s): MR angio neck wo/w con Accession Number(s): [id number] cc: Odalys Ward MD Reason for Exam: dizziness CLINICAL HISTORY: dizziness MR Angiography neck with and without gadolinium Comparison: None provided Findings: Visualized aortic arch and great vessel takeoffs are normal. Bilateral subclavian, vertebral, and carotid arteries are patent. The intracranial vertebrobasilar system is patent. IMPRESSION: Normal MRA neck This document has been electronically signed by: John Fortune MD on 08/26/2025 14:40:00 Dictated By: John Fortune MD Signed By: <Electronically signed by John Fortune MD in OV> 08/26/25 1441 DD/ 1440 TD/TT: 08/26/25 1440 Phlebotomy Services Technician: Procedure Note Donotuseinterpreter, Image - 08/26/[address] [address] Magnetic Resonance Report Signed Patient: Javad AlbertoR#: [id number] : 1965Acct:[id number] Age/Sex: 60 / MADM Date: 08/23/25 Loc: HO.MRI Attending Dr: Odalys Germain MD Ordering Physician: Odalys Ward MD Date of Service: 08/23/25 Procedure(s): MR angio neck wo/w con Accession Number(s): [id number] cc: Odalys Ward MD Reason for Exam: dizziness CLINICAL HISTORY: dizziness MR Angiography neck with and without gadolinium Comparison: None provided Findings: Visualized aortic arch and great vessel takeoffs are normal. Bilateral subclavian, vertebral, and carotid arteries are patent. The intracranial vertebrobasilar system is patent. IMPRESSION: Normal MRA neck This document has been electronically signed by: John Fortune MD on 08/26/2025 14:40:00 Dictated By: John Fortune MD Signed By: <Electronically signed by John Fortune MD in OV> 08/26/25 1441 DD/ 144 TD/TT: 08/26/25 144 Phlebotomy Services Technician: us Odalys Germain MD IMG MRI PROCEDURE S Final Result * MRA Head w/o Contrast (08/26/2025 9:39 AM EDT) Anatomical Region Laterality Modality Head, Neck Magnetic Resonan ce 08/26/2025 9:39 AM EDT Narrative 08/26/2025 9:40 AM EDT [place] [address] Magnetic Resonance Report Signed Patient: Matteo Alberto MR#: [id number] : 1965 Acct:[id number] Age/Sex: 60 / M ADM Date: 08/23/25 Loc: HO.MRI Attending Dr: Odalys Germain MD Ordering Physician: Odalys Ward MD Date of Service: 08/23/25 Procedure(s): MR angio head wo con Accession Number(s): [id number] cc: Odalys Ward MD Reason for Exam: dizzines CLINICAL HISTORY: dizzines MR Angiography head without gadolinium Comparison: None provided Findings Right AICA not definitely seen (finding may be congenital -there is a dominant right AICA-, or due to age-indeterminate stenosis and/or occlusion). Correlate clinically +/-with brain MRI. Otherwise no evidence of significant arterial stenosis, aneurysm, AVM, or dissection. IMPRESSION: Right AICA not definitely seen (finding may be congenital -there is a dominant right AICA-, or due to age-indeterminate stenosis and/or occlusion). Correlate clinically +/-with brain MRI. Otherwise no evidence of significant arterial stenosis, aneurysm, AVM, or dissection. This document has been electronically signed by: Mandy Loza MD on 08/26/2025 09:39:15 Dictated By: Mandy Loza MD Signed By: <Electronically signed by Mandy Loza MD in OV> 08/26/259[address] DD/ 8 TD/TT: 08/26/25938 Phlebotomy Services Technician: Procedure Note Donotuseinterpreter, Image - 08/26/2025 [place] [address] Magnetic Resonance Report Signed Patient: Elder Alberto#: [id number] : 1965Acct:[id number] Age/Sex: 60 / MADM Date: 08/23/25 Loc: HO.MRI Attending Dr: Odalys Germain MD Ordering Physician: Odalys Ward MD Date of Service: 08/23/25 Procedure(s): MR angio head wo [facility] Accession Number(s): [id number] cc: Odalys Ward MD Reason for Exam: dizzines CLINICAL HISTORY: dizzines MR Angiography head without gadolinium Comparison: None provided Findings Right AICA not definitely seen (finding may be congenital -there is a dominant right AICA-, or due to age-indeterminate stenosis and/or occlusion). Correlate clinically +/-with brain MRI. Otherwise no evidence of significant arterial stenosis, aneurysm, AVM, or dissection. IMPRESSION: Right AICA not definitely seen (finding may be congenital -there is a dominant right AICA-, or due to age-indeterminate stenosis and/or occlusion). Correlate clinically +/-with brain MRI. Otherwise no evidence of significant arterial stenosis, aneurysm, AVM, or dissection. This document has been electronically signed by: Mandy Loza MD on 08/26/2025 09:39:15 Dictated By: Mandy Loza MD Signed By: <Electronically signed by Mandy Loza MD in OV> 08/26/25939 DD/ 8 TD/TT: 08/26/25938 Phlebotomy Services Technician: us Odalys Germain MD IMG MRI PROCEDURE S Final Result * (ABNORMAL) Lipid Panel, Standard (05/06/2024 9:44 AM EDT) Triglycerides 128 <150 mg/dL [facility] Comment:Desirable Triglyceri de: less than 150 mg/dLBorderline High Triglyceride 150-199 mg/dLHigh Triglyceride: 200-499 mg/dLVery High Triglyceride: greater than or equal to 5OO mg/dL Cholesterol 147 <200 mg/dL [facility] Comment:Desirable Cholestero l: less than 200 mg/dLBorderline High Cholesterol: 200-239 mg/dLHigh Cholesterol: greater than 239 mg/dL LDL Cholesterol Calculated 93 <100 mg/dL [facility] Comment:Desirable LDL: less than 100 mg/dLNear Optimal/Above Optimal LDL: 110- 129 mg/dLBorderline High LDL: 130-159 mg/dLHigh LDL: 160-189 mg/dLVery High LDL: greater than or equal to 190 mg/dL HDL Cholesterol 29(L) >40 mg/dL [facility] Comment:Desirable HDL: great er than 40 mg/dL Note: This HDL assay may give artificially low results in patients with liver disease. Blood Venous blood specimen / Unknown 05/06/2024 9:44 AM EDT 05/06/2024 10:51 AM EDT Chris Campbell MD LAB BLOOD ORDERABLES Final Result [facility] [address] [place] [phone] * Hm Colonoscopy (05/14/2020 2:46 PM EDT) Colonoscopy 2 to 3+ inflamed internal hemorrhoids, diverticulosis seen on CAT scan. No Historical Provider HEALTH MAINTENANCE Edited Result - Final * (ABNORMAL) OCCULT BLOOD STOOL (03/30/2020 2:52 PM EDT) OCCULT BLOOD STOOL POS(AA) NEG [facility] 03/30/2020 2:52 PM EDT us Historical Provider LAB BODY FLUIDS AND STOOL S ORDERABLES Final Result [facility] [address] from Last 3 Months or Most Recently Relevant to Health Maintenance Insurance [facility] ONE CARE < [address] [place] [id number] [employer] ONE CARE < [address] [place] [id number] Care Teams Rustic Fence Builder Relationship Specialty Start Date End Date Chris Sarah MD [address] [place] [phone] PCP - General Internal Medicine 06/13/14
--- OUTSIDE RECORDS SUMMARY | 2025-09-06 19:18 | XMS_ITS | Encounter Summary ---
Author Organization [employer] Address [address] [facility] 7t [place] [address] Care Team Providers Care Professor Of Counseling Name Role Phone Chris Sarah MD Primary Care Provide r Reason for Visit * Reason Onset Date Comments Results 08/28/2025 Encounter Details Date Type Department Care Team ([facility] st Contact Info) Description 08/28/2025 Results Follow-Up [facility] [address] [place] [address] Odalys Ward MD [address] [place] [address] MRA Head w/o Contrast Social History Tobacco Use Types Packs/Day Years [...] AM EDT documented as of this encounter Miscellaneous Notes * Telephone Encounter - Dot Cunningham RN - 09/03/2025 10:24 AM EST Telephone call placed to pt x3 regarding below results and POC. No answer, left another V/M. * Telephone Encounter - Dot Cunningham RN - 09/02/2025 11:04 AM EST Telephone call placed to pt x3 regarding below results and POC. No answer, left v/m. * Telephone Encounter - Renée Morataya RN - 09/01/2025 1:10 PM EST Telephone call x2 to pt to advise of below result. No answer, left voicemail to call back. * Telephone Encounter - John Vasques - 08/29/2025 3:02 PM EDT Tc from pt returning call regarding prior message. Contact pt at [phone] * Telephone Encounter - Renée Morataya RN - 08/29/2025 11:36 AM EDT Telephone call x1 to pt to advise of below result. No answer, left voicemail to call back. * Telephone Encounter - Renée Morataya RN - 08/29/2025 11:35 AM EDT ----- Message from Odalys Germain MD sent at 08/28/2025 10:22 PM EDT ----- Please inform pt neck MRA is normal and from MRA head report that Right AICA (anterior inferior cerebellar artery) not definitely seen (finding may be congenital -there is a dominant right AICA-, or due to age-indeterminate stenosis and/or occlusion). Correlate clinically +/- with brain MRI. Otherwise no evidence of significant arterial stenosis, aneurysm, AVM, or dissection -Given major complain of pt was severe vertigo So will need to clarify finding with brain MRI ordered today as recommended by radiologist -please advise pt to continue to follow w PCP -please can you check if pt had done cervical spine MRI ordered as well in the past ? Thanks ----- Message ----- From: Pedro, Ris Results In Sent: 08/26/2025 9:41 AM EDT To: Odalys Germain MD * Result Encounter Note - Odalys Germain MD - 08/28/2025 10:22 PM EDT Please inform pt neck MRA is normal and from MRA head report that Right AICA (anterior inferior cerebellar artery) not definitely seen (finding may be congenital -there is a dominant right AICA-, or due to age-indeterminate stenosis and/or occlusion). Correlate clinically +/-with brain MRI. Otherwise no evidence of significant arterial stenosis, aneurysm, AVM, or dissection -Given major complain of pt was severe vertigo So will need to clarify finding with brain MRI ordered today as recommended by radiologist -please advise pt to continue to follow w PCP -please can you check if pt had done cervical spine MRI ordered as well in the past ? Thanks documented in this encounter Plan of Treatment Not on file documented as of this encounter Visit Diagnoses Not on filedocumented in this encounter Additional Health Concerns Assessment Noted Time PHQ-9 Depression Total Score: 0 09/03/20 24 11:28 AM EST documented as of this encounter Care Teams Professor Of Counseling Relationship Specialty Start Date End Date Chris Sarah MD [address] [place] [address] PCP - General Internal Medicine 06/13/14 documented as of this encounter
--- OUTSIDE RECORDS SUMMARY | 2025-09-06 19:18 | XMS_ITS | Encounter Summary ---
Author Organization [employer] Address [address] [facility] 7t [place] [address] Care Team Providers Care Procurement Forester Name Role Phone Chris Sarah MD Primary Care Provide r Reason for Visit * Reason Onset Date Comments October recall 09/02/2025 Encounter Details Date Type Department Care Team ([facility] st Contact Info) Description 09/02/2025 Telephone [facility] [address] [place] [address] Chris Sarah MD [address] [place] [address] October recall Social History Tobacco Use Types Packs/Day Years [...] encounter Miscellaneous Notes * Telephone Encounter - Rico Wang MA - 09/02/2025 6:37 PM EST Telephone call to patient to schedule the following recall: Visit type: Office visit Appointment notes: HTN with Uri. Pt stated that he is going on vacation from September until December pt will contact us to schedule appointment. Pt placed on recall for December. documented in this encounter Plan of Treatment Not on file documented as of this encounter Visit Diagnoses Not on filedocumented in this encounter Additional Health Concerns Assessment Noted Time PHQ-9 Depression Total Score: 0 09/03/20 24 11:28 AM EST documented as of this encounter Care Teams Procurement Forester Relationship Specialty Start Date End Date Chris Sarah MD [address] [facility] [place] [address] PCP - General Internal Medicine 06/13/14 documented as of this encounter
--- OUTSIDE RECORDS SUMMARY | 2025-09-06 19:18 | XMS_ITS | Encounter Summary ---
Author Organization [employer] Address [address] [facility] 7t [place] [address] Care Team Providers Care Embryology Professor Name Role Phone Chris Sarah MD Primary Care Provide r Encounter Details Date Type Department Care Team (Late st Contact Info) Description 09/15/2022 Abstract [facility] MEDICINE [address] [place] [address] Provider, Yair, Social History Tobacco Use Types [...] on filedocumented in this encounter Care Teams Embryology Professor Relationship Specialty Start Date End Date Chris Sarah MD [address] [place] [phone] PCP - General Internal Medicine 06/13/14 documented as of this encounter
--- OUTSIDE RECORDS SUMMARY | 2025-09-06 19:18 | XMS_ITS | Encounter Summary ---
Author Organization [employer] Address [address] [facility] [address]t [place] [address] Care Team Providers Care Assistant Director Of Nursing Name Role Phone Chris Sarah MD Primary Care Provide r Encounter Details Date Type Department Care Team ([facility] st Contact Info) Description 09/19/2023 Abstract [facility] [address] [place] [address] Chris Sarah MD [address] [place] [address] Social History Tobacco Use Types Packs/Day Years [...] on filedocumented in this encounter Care Teams Assistant Director Of Nursing Relationship Specialty Start Date End Date Chris Sarah MD [address] [place] [phone] PCP - General Internal Medicine 06/13/14 documented as of this encounter
--- OUTSIDE RECORDS SUMMARY | 2025-09-06 19:18 | XMS_ITS | Encounter Summary ---
Author Organization [employer] Address [address] [facility] 7t [place] [address] Care Team Providers Care Table Games Floor Supervisor Name Role Phone Chris Sarah MD Primary Care Provide r Reason for Visit * Reason Comments Med Refill Encounter Details Date Type Department Care Team ([facility] st Contact Info) Description 10/21/[address] [facility] MEDICINE [address] [place] [address] Chris Sarah MD [address] [place] [address] Social History Tobacco Use Types Packs/Day Years [...] documented as of this encounter Care Teams Table Games Floor Supervisor Relationship Specialty Start Date End Date Chris Sarah MD [address] [place] [phone] PCP - General Internal Medicine 06/13/14 documented as of this encounter
--- OUTSIDE RECORDS SUMMARY | 2025-09-06 19:18 | XMS_ITS | Encounter Summary ---
Author Organization [employer] Address [address] [facility] 7t [place] [address] Care Team Providers Care Dispatch Manager Name Role Phone Chris Sarah MD Primary Care Provide r Encounter Details Date Type Department Care Team (Late st Contact Info) Description 09/06/2025 Orders Only GENERIC EXTERNAL DATA DEPARTMENT Provider, Generic External Data Social History Tobacco Use Types Packs/Day Years [...] Procedure Name Priority Date/Time Associated Diagnosis Comments URINALYSIS WITH REFLEX TO MICROSCOPIC Routine 09/06/2025 3:13 PM EST CBC WITH AUTO DIFFERENTIAL Routine 09/06/2025 3:13 PM EST LIPASE Routine 09/06/2025 3:13 PM EST COMPREHENSIVE METABOLIC PANEL Routine 09/06/2025 3:13 PM EST documented in this encounter Results * Lipase (09/06/2025 3:13 PM EST) Lipase 46 8 - 78 U/L [facility] 09/06/2025 3:13 PM EST 09/06/2025 3:18 PM EST us Generic External Data Provider LAB BLOOD ORDERAB LES Final Result [facility] [address] [place] [phone] * Urinalysis with Reflex to Microscopic (09/06/2025 3:13 PM EST) Color Urine Yellow [facility] Appearance Urine Clear [facility] PH 6.0 5.0 - 9.0 [facility] Glucose Urine UA Negative Negative mg/dL [facility] Urine Blood Negative Negative [facility] Specific [place] - Urine 1.015 1.005 - 1.025 [facility] Urine Protein Negative Neg-Trace mg/dL [facility] Urine Ketones Negative Negative mg/dL [facility] Nitrite Urine Negative Negative [facility] Leukocyte Esterase Urine Negative Negative [facility] 09/06/2025 3:13 PM EST 09/06/2025 3:18 PM EST us Generic External Data Provider LAB URINE ORDERAB LES Final Result [facility] [address] [place] [phone] * (ABNORMAL) Comprehensive Metabolic Panel (09/06/2025 3:13 PM EST) Sodium 132(L) 135 - 145 mmol/L [facility] Potassium 4.5 3.3 - 5.1 mmol/L [facility] Comment:Mild Hemolysis.Inter pret result with caution Chloride 99 96 - 108 mmol/L [facility] Carbon Dioxide 24 22 - 29 mmol/L [facility] Anion Gap 14 12 - 20 [facility] Urea Nitrogen (BUN) 18(H) 9 - 16 mg/dL [facility] Creatinine, Serum 0.98 0.5 - 1.4 mg/dL [facility] Creatinine Clr Calc Pharmacy 82.2 [facility] Comment:eGFR (calculated fro m the MDRD study equation) and eCrCl(calculated from the Cockcroft-Gault equation) are based ondifferent parameters and may not yield comparable results.If eCrCl result is absurd, please check patient'sheight/weight. Estimated Glomerular Filt Rate >60 [facility] Comment:Chronic Kidney Disea se: Estimated GFR < 60 mL/min/1.98p7Vrfesp Kidney Disease: Estimated GFR < 15 mL/min/1.73m2 Glucose 124(H) 60 - 115 mg/dL [facility] Calcium 8.5 8.4 - 10.2 mg/dL [facility] Bilirubin, Total 0.6 0.0 - 1.0 mg/dL [facility] Aspartate Amino Transferase 37 5 - 37 U/L [facility] Comment:Mild Hemolysis.Inter pret result with caution Alanine Aminotransferase 61(H) 0 - 40 U/L [facility] Total Protein 6.9 6.5 - 8.0 g/dL [facility] Comment:Mild Hemolysis.Inter pret result with caution Albumin Level 3.9 3.5 - 5.0 g/dL [facility] Alkaline Phosphatase 79 39 - 117 U/L [facility] 09/06/2025 3:13 PM EST 09/06/2025 3:18 PM EST us Generic External Data Provider LAB BLOOD ORDERAB LES Final Result Performing Organization Address City/State/[facility] Co de Phone Number [facility] [address] [place] [phone] * (ABNORMAL) CBC auto differential (09/06/2025 3:13 PM EST) White Blood Count 13.3(H) 4.8 - 10.8 X10*3/uL [facility] Red Blood Count 5.32 4.60 - 5.80 X10*6/uL [facility] Hemoglobin 15.2 14.0 - 18.0 g/dl [facility] Hematocrit 45.1 42.0 - 52.0 % [facility] Mean Corpuscular Volume 84.8 80.0 - 98.0 fL [facility] Mean Corpuscular Hemoglobin 28.6 27.0 - 33.0 pg [facility] Mean Corpuscular HGB Conc 33.7 31.0 - 36.0 g/dl [facility] Red Cell Distribution Width 14.6 11.0 - 16.0 % [facility] Platelet Count 205 160 - 400 X10*3/uL [facility] Mean Platelet Volume 10.5 9.4 - 12.4 fL [facility] Neutrophils Percent Auto 72.9 45 - 73 % [facility] Imm Gran Pct Auto 1.4(H) 0.0 - 0.4 % [facility] Lymphocytes Percent Auto 16.6(L) 20 - 40 % [facility] Monocytes Percent Auto 8.0 2 - 11 % [facility] Eosinophils Percent Auto 1.0 0 - 4 % [facility] Basophils Percent Auto 0.1 0 - 2 % [facility] NRBC Pct Auto 0.0 0.0 - 0.2 /100WBC [facility] Neutrophils Absolute Auto 9.7(H) 2.0 - 8.3 x10*3/uL [facility] Imm Gran Abs Auto 0.18(H) 0.00 - 0.03 X10*3/uL [facility] Lymphocytes Absolute Auto 2.2 1.2 - 4.9 X10*3/uL [facility] Monocytes Absolute Auto 1.1 0.1 - 1.2 X10*3/uL [facility] Eosinophils Absolute Auto 0.1 0.0 - 0.4 X10*3/uL [facility] Basophils Absolute Auto 0.0 0.0 - 0.2 X10*3/uL [facility] NRBC Abs Auto 0.000 0.0 - 0.012 X10*3/uL [facility] 09/06/2025 3:13 PM EST 09/06/2025 3:18 PM EST us Generic External Data Provider LAB BLOOD ORDERAB LES Final Result [facility] [address] [place] [phone] documented in this encounter Visit Diagnoses Not on filedocumented in this encounter Additional Health Concerns Assessment Noted Time PHQ-9 Depression Total Score: 0 09/03/20 24 11:28 AM EST documented as of this encounter Care Teams Dispatch Manager Relationship Specialty Start Date End Date Chris Sarah MD [address] [place] [phone] PCP - General Internal Medicine 06/13/14 documented as of this encounter
--- OUTSIDE RECORDS SUMMARY | 2025-09-06 19:18 | XMS_ITS | Encounter Summary ---
Author Organization [employer] Address [address] [facility] 7[address] [place] [address] Care Team Providers Care Qual Research Manager Name Role Phone Chris Sarah MD Primary Care Provide r Encounter Details Date Type Department Care Team (Latest Contact Info) Description 11/13/2018 Abstract [facility] CONVERSIONS Dental, Provider, DDS Social [...] on filedocumented in this encounter Care Teams Qual Research Manager Relationship Specialty Start Date End Date Chris Sarah MD [address] [place] [address] PCP - General Internal Medicine 06/13/14 documented as of this encounter
[2025-09-06] MEDS: iohexoL 350 MG/ML 100 ML INFUS..BTL IV (19:44)
[2025-09-06 21:24] VITALS: BP 128/68; PULSE 72; RESP 16; TEMP 36.8; O2SAT 95
[2025-09-06 21:47] VITALS: BP 128/68; PULSE 72; RESP 16; TEMP 36.8; O2SAT 95
== END 2025-09-06 21:48 | disposition home or self-care (01) ==
PROVIDERS: Physician Assistant; Emergency Provider Emergency Medicine; PCP Internal Medicine
DX: K21.9 Gastro-esophageal reflux disease without esophagitis (principal); R10.9 Unspecified abdominal pain; Z79.899 Other long term (current) drug therapy
CPT/HCPCS: 36415; 74177; 80053; 81003; 83690; 85025; 93005; 96374; 99285; J2470; Q9967

== ENCOUNTER → 2025-09-06 14:56 | Outpatient (BNV) | payer OTHER, SELFPAY | PROVIDERS: Emergency Provider Emergency Medicine; PCP Internal Medicine; Visit Provider Internal Medicine Cardiovascular Disease | DX: I25.2 Old myocardial infarction (principal) | CPT/HCPCS: 93010 ==

== ENCOUNTER → 2025-09-06 18:45 | Outpatient (BNV) | payer OTHER, SELFPAY | PROVIDERS: Emergency Provider Emergency Medicine; PCP Internal Medicine; Visit Provider Radiology Diagnostic Radiology | DX: R10.9 Unspecified abdominal pain (principal); D72.829 Elevated white blood cell count, unspecified; K57.92 Diverticulitis of intestine, part unspecified, without perforation or abscess without bleeding; K52.9 Noninfective gastroenteritis and colitis, unspecified | CPT/HCPCS: 74177 ==

== ENCOUNTER 2025-09-30 08:30 | Outpatient (REF) | payer OTHER, SELFPAY ==
--- NOTE | ~2025-09-30 | MR_ITS ---
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 Headaches times multiple months. Blurry vision and dizziness. COMPARISON: 06/21/2018. TECHNIQUE: Multiplanar, multisequence MRI of the brain was obtained before and after the intravenous administration of 10 mL Gadavist. Examination performed on a 1.5 Marilynn Siemens high-field unit. FINDINGS: There is no diffusion restriction. There is no intracranial hemorrhage, acute infarction, mass effect, or edema. Ventricles, sulci, and cisterns are normal in size and configuration for patient age. No shift of midline. No abnormal hemosiderin deposition is identified. There are a few scattered punctate foci of white matter T2 hyperintensity in the periventricular, subcortical, and hemispheric deep white matter. These foci are nonspecific but statistically relate to small vessel ischemic changes. There is no abnormal intra or extra-axial enhancement after the administration of contrast. Midline structures appear normally formed. The pituitary gland appears normal. Posterior fossa structures appear normal. Cerebellar tonsils are appropriately located. Major flow voids are preserved within the skull base. The globes and orbital contents demonstrate no abnormalities. Paranasal sinuses demonstrate mild mucosal thickening seen throughout the dependent maxillary sinuses bilaterally, and ethmoid sinuses. Remainder of the paranasal sinuses are normally aerated. The mastoids and tympanic cavities are normally aerated. Extracranial soft tissues demonstrate no abnormalities. No suspicious bone marrow changes are evident. Atlantoaxial joint demonstrates mild to moderate degenerative changes. MR/MR head/brain wo/w con IMPRESSION: 1. No evidence of intracranial hemorrhage, acute infarction, mass effect, or edema. No abnormal contrast enhancement. 2. Minimal white matter changes of small vessel ischemia. 3. Mild paranasal sinus disease involving the maxillary and ethmoid sinuses. Electronically signed by: Scottie Lowery MD 09/30/2025 10:00 AM KARTIK
--- OUTSIDE RECORDS SUMMARY | 2025-09-30 08:36 | XMS_ITS | Clinical Summary ---
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 He tells me he was in [facility] and there they checked his uric acid [...] Please correlate clinically. Pt was referred to unattended ground sensor specialist for evaluation and was seen last [...] soft tissue inflammation Previous work up included DEYN, CRP, RF, Uric Acid all normal. pt [...] interested in psychotherapy Pt referred to our [facility] Clinician Pt reporting Insomnia , good results with Ambien Atherosclerosis of coronary artery 03/03/2014 Assessment & Plan (09/12/2023 3:05 PM EST): He is s/p quadruple coronary bypass graft surgery, performed at [facility], after STEMI on 02-23-14; Pt underwent cardiac rehabilitation at [facility]. Currently on Plavix. Pt under the care of [facility] last seen 09/14/2021 Myocardial perfusion scan 10/10/2019 showed: Basal inferolateral transmural infarct , Mild to moderate intensity ischemia of the lateral and mid and apical inferolateral wall. EF 72% Pt on Beta araceli, Plavix and Statin He had a cardiac cath at [facility] 11/2019 Under the care of Cardiology last seen: 07/2023 Dr Naqvi Assessment & Plan (06/15/2023 2:42 PM EDT): He is s/p quadruple coronary bypass graft surgery, performed at [facility], after STEMI on 02-23-14; Pt underwent cardiac rehabilitation at [facility]. Currently on Plavix. Pt under the care of [facility] last seen 09/14/2021 Myocardial perfusion scan 10/10/2019 showed: Basal inferolateral transmural infarct , Mild to moderate intensity ischemia of the lateral and mid and apical inferolateral wall. EF 72% Pt on Beta araceli, Plavix and Statin He had a cardiac cath at [facility] 11/2019 Under the care of Cardiology last [...] a neurosurgical consultation with Dr. Barber at [facility]. He was seen by Dr. Posada 03/04/2024 [...] a neurosurgical consultation with Dr. Barber at [facility]. He was seen by Dr. Posada 03/04/2024 his impression was that patient had a left upper extremity radiculopathy that failed conservative therapy, he mentions that imaging is consistent with progressive findings. He proposed a 4 level ACDF C3-4, C4-5, C5- 6, C6-7 Today patient tells me he recently returned from his tribe [facility] and he feels his neck pain improved [...] DEPARTMENT Provider, Generic External Data 09/02/2025 Telephone [facility] [place] [address] Chris Sarah MD October08/28/2025 Results Follow-Up [facility] [address] [place] [address] Odalys Ward MD MRA Head w/o Contrast 08/28/2025 Orders Only [facility] [address] [place] [address] Odalys Ward MD Abnormal MRA, brain (Primary Dx) 07/09/2025 Telephone [facility] [address] [place] [address] Chris Sarah MD Durable Medical Equipment 07/03/2025 Telephone [facility] [address] [place] [address] Chris Sarah MD 07/03/2025 Telephone [facility] [address] [place] [address] Chris Sarah MD Record Request 07/01/2025 11:00 AM EDT Office Visit [facility] [address] [place] [address] Chris Sarah MD Primary hypertension (Primary Dx); [...] Use Screening 1975 Hepatitis C Screening 1981 RSV Patients and Patients Aged 60 years or older (1 - Risk 50-74 years 1-dose series) 2013 Zoster Vaccines (1 of 2) 2013 Pneumococcal Vaccine: 50+ Years (2 of 2 - PCV) 02/27/2015 02/27/2014 FOBT 03/30/2021 03/30/2020 Colonoscopy 05/14/2025 05/14/2020 Colorectal Cancer Screening 05/14/2025 COVID-19 Vaccine ( season) 2025 09/03/2024, 10/05/2021, 03/24/2021, Additional history exists Influenza Vaccine (#1) 2025 , 09/12/2023, 09/16/2021, Additional history exists Depression Screening 09/03/2025 09/03/2024, 09/03/20 24 SDOH Screening 05/20/2026 05/20/2025 Tobacco Screening 07/01/2026 07/01/2025 DTaP/Tdap/Td Vaccines (2 - Td or Tdap) 08/31/2027 08/31/2017, 09/01/2004 Lipid Panel 05/06/2029 05/06/2024, 05/31, 10/04/2021, Additional history exists HIB Vaccines Aged Out [...] Procedure Name Priority Date/Time Associated Diagnosis Comments CT ABDOMEN PELVIS W CONTRAST Routine 09/06/2025 8:37 PM EST LIPASE Routine 09/06/2025 3:13 PM EST URINALYSIS [...] Recently Relevant to Health Maintenance Results * CT Abdomen Pelvis w/ Contrast (09/06/2025 8:37 PM EST) Anatomical Region Laterality Modality Body, Pelvis, Abdomen Computed T omography 09/06/2025 8:37 PM EST Narrative 09/06/2025 8:38 PM EST [address] [address] [address] Scan Report Signed Patient: Matteo Alberto MR#: [id number] : 1965 Acct:[id number] Age/Sex: 60 / M ADM Date: 09/06/25 Loc: HO.ED Attending Dr: Ordering Physician: Jefe Perry MD Date of Service: 09/06/25 Procedure(s): CT abdomen pelvis w IV con Accession Number(s): [id number] cc: Jefe Perry MD; Chris Phoenix MD Report Number: [id number]: Total DLP = 0.00 mGy-cm Reason for Exam: abd pain, Leukocytosis,appy,diverticulitis,colitis CLINICAL HISTORY: abd pain, Leukocytosis,appy,diverticulitis,colitis Exam: Contrast-enhanced CT abdomen and pelvis with multiplanar reformats. Comparison: 04/09/2025. Findings: CT abdomen: Lung bases are clear. Liver is free of focal lesions and ductal dilatation. Gallbladder appears unremarkable. Spleen is unremarkable. Pancreas and adrenal glands appear unremarkable. Kidneys appear unremarkable. No free intraperitoneal fluid or retroperitoneal masses or adenopathy. Abdominal aorta is normal caliber with mild calcific athero sclerosis. Bowel loops reveal no abnormal wall thickening or distention. The appendix is unremarkable. No significant diverticular disease. CT pelvis: Prostate gland measures 5.3 cm transverse dimension. Urinary bladder is free of filling defects. No pelvic masses, fluid or adenopathy. Osseous structures reveal no destructive osseous lesions. Impression: 1. No acute abnormality or CT explanation for abdominal pain and leukocytosis. This document has been electronically signed by: Amadou Jimenez MD on 09/06/2025 20:37:53 Dictated By: Amadou Jimenez MD Signed By: <Electronically signed by Amadou Jimenez MD in OV> 09/06/252037 DD/ 36 TD/TT: 09/06/252036 Fuse Coiler: Procedure Note Donotuseinterpreter, Image - 09/06/[address] [place] [address] [address] Scan Report Signed Patient: Elder Alberto#: [id number] : 1965Acct:[id number] Age/Sex: 60 / MADM Date: 09/06/25 Loc: HO.ED Attending Dr: Ordering Physician: Jefe Perry MD Date of Service: 09/06/25 Procedure(s): CT abdomen pelvis w IV con Accession Number(s): [id number] cc: Jefe Perry MD; Chris Phoenix MD Report Number: [id number]: Total DLP = 0.00 mGy-cm Reason for Exam: abd pain, Leukocytosis,appy,diverticulitis,colitis CLINICAL HISTORY: abd pain, Leukocytosis,appy,diverticulitis,colitis Exam: Contrast-enhanced CT abdomen and pelvis with multiplanar reformats. Comparison: 04/09/2025. Findings: CT abdomen: Lung bases are clear. Liver is free of focal lesions and ductal dilatation. Gallbladder appears unremarkable. Spleen is unremarkable. Pancreas and adrenal glands appear unremarkable. Kidneys appear unremarkable. No free intraperitoneal fluid or retroperitoneal masses or adenopathy. Abdominal aorta is normal caliber with mild calcific athero sclerosis. Bowel loops reveal no abnormal wall thickening or distention. The appendix is unremarkable. No significant diverticular disease. CT pelvis: Prostate gland measures 5.3 cm transverse dimension. Urinary bladder is free of filling defects. No pelvic masses, fluid or adenopathy. Osseous structures reveal no destructive osseous lesions. Impression: 1. No acute abnormality or CT explanation for abdominal pain and leukocytosis. This document has been electronically signed by: Amadou Jimenez MD on 09/06/2025 20:37:53 Dictated By: Amadou Jimenez MD Signed By: <Electronically signed by Amadou Jimenez MD in OV> 09/06/252037 DD/ 36 TD/TT: 09/06/252036 Fuse Coiler: [facility] External Provider IMG CT PROCEDURES Final Result * Urinalysis with Reflex to Microscopic (09/06/2025 3:13 PM EST) Color Urine Yellow [facility] Appearance Urine Clear [facility] PH 6.0 5.0 - 9.0 [facility] Glucose Urine UA Negative Negative mg/dL [facility] Urine Blood Negative Negative [facility] Specific [place] - Urine 1.015 1.005 - 1.025 [facility] Urine Protein Negative Neg-Trace mg/dL [facility] Urine Ketones Negative Negative mg/dL [facility] Nitrite Urine Negative Negative [facility] Leukocyte Esterase Urine Negative Negative [facility] 09/06/2025 3:13 PM EST 09/06/2025 3:18 PM EST us Generic External Data Provider LAB URINE ORDERAB LES Final Result Performing Organization Address City/State/[facility] Co de Phone Number [facility] [address] [place] [phone] * (ABNORMAL) CBC auto differential (09/06/2025 3:13 PM EST) White Blood Count 13.3(H) 4.8 - 10.8 X10*3/uL [facility] Red Blood Count 5.32 4.60 - 5.80 X10*6/uL [facility] Hemoglobin 15.2 14.0 - 18.0 g/dl [facility] Hematocrit 45.1 42.0 - 52.0 % [facility] Mean Corpuscular Volume 84.8 80.0 - 98.0 fL [facility] Mean Corpuscular Hemoglobin 28.6 27.0 - 33.0 pg [facility] Mean Corpuscular HGB Conc 33.7 31.0 - 36.0 g/dl [facility] Red Cell Distribution Width 14.6 11.0 - 16.0 % [facility] Platelet Count 205 160 - 400 X10*3/uL [facility] Mean Platelet Volume 10.5 9.4 - 12.4 fL [facility] Neutrophils Percent Auto 72.9 45 - 73 % [facility] Imm Gran Pct Auto 1.4(H) 0.0 - 0.4 % [facility] Lymphocytes Percent Auto 16.6(L) 20 - 40 % [facility] Monocytes Percent Auto 8.0 2 - 11 % [facility] Eosinophils Percent Auto 1.0 0 - 4 % [facility] Basophils Percent Auto 0.1 0 - 2 % [facility] NRBC Pct Auto 0.0 0.0 - 0.2 /100WBC [facility] Neutrophils Absolute Auto 9.7(H) 2.0 - 8.3 x10*3/uL [facility] Imm Gran Abs Auto 0.18(H) 0.00 - 0.03 X10*3/uL [facility] Lymphocytes Absolute Auto 2.2 1.2 - 4.9 X10*3/uL [facility] Monocytes Absolute Auto 1.1 0.1 - 1.2 X10*3/uL [facility] Eosinophils Absolute Auto 0.1 0.0 - 0.4 X10*3/uL [facility] Basophils Absolute Auto 0.0 0.0 - 0.2 X10*3/uL [facility] NRBC Abs Auto 0.000 0.0 - 0.012 X10*3/uL [facility] 09/06/2025 3:13 PM EST 09/06/2025 3:18 PM EST us Generic External Data Provider LAB BLOOD ORDERAB LES Final Result Performing Organization Address [facility]/ZIP Co de Phone Number [facility] [address] [place] [phone] * Lipase (09/06/2025 3:13 PM EST) Lipase 46 8 - 78 U/L [facility] 09/06/2025 3:13 PM EST 09/06/2025 3:18 PM EST [employer] External Data Provider LAB BLOOD ORDERAB LES Final Result Performing Organization Address [facility] Co de Phone Number [facility] [address] [place] [phone] * (ABNORMAL) Comprehensive Metabolic Panel (09/06/2025 3:13 PM EST) Sodium 132(L) 135 - 145 mmol/L [facility] Potassium 4.5 3.3 - 5.1 mmol/L [facility] Comment:Mild Hemolysis.Inter pret result with caution Chloride 99 96 - 108 mmol/L [facility] Carbon Dioxide 24 22 - 29 mmol/L [facility] Anion Gap 14 12 - 20 [facility] Urea Nitrogen (BUN) 18(H) 9 - 16 mg/dL [facility] Creatinine, Serum 0.98 0.5 - 1.4 mg/dL [facility] Creatinine Clr Calc Pharmacy 82.2 [facility] Comment:eGFR (calculated fro m the MDRD study equation) and eCrCl(calculated from the Cockcroft-Gault equation) are based ondifferent parameters and may not yield comparable results.If eCrCl result is absurd, please check patient'sheight/weight. Estimated Glomerular Filt Rate >60 [facility] Comment:Chronic Kidney Disea se: Estimated GFR < 60 mL/min/1.80a1Ilonbi Kidney Disease: Estimated GFR < 15 mL/min/1.73m2 Glucose 124(H) 60 - 115 mg/dL [facility] Calcium 8.5 8.4 - 10.2 mg/dL [facility] Bilirubin, Total 0.6 0.0 - 1.0 mg/dL [facility] Aspartate Amino Transferase 37 5 - 37 U/L [facility] Comment:Mild Hemolysis.Inter pret result with caution Alanine Aminotransferase 61(H) 0 - 40 U/L [facility] Total Protein 6.9 6.5 - 8.0 g/dL [facility] Comment:Mild Hemolysis.Inter pret result with caution Albumin Level 3.9 3.5 - 5.0 g/dL [facility] Alkaline Phosphatase 79 39 - 117 U/L [facility] 09/06/2025 3:13 PM EST 09/06/2025 3:18 PM EST us Generic External Data Provider LAB BLOOD ORDERAB LES Final Result [facility] [address] [place] [phone] * MRA Neck w/ and w/o Contrast (08/26/2025 2:40 PM EDT) Anatomical Region Laterality Modality Head, Neck Magnetic Resonan ce 08/26/2025 2:40 PM EDT Narrative 08/26/2025 2:41 PM EDT [address] [address] Magnetic Resonance Report Signed Patient: Matteo Alberto MR#: [id number] : 1965 Acct:[id number] Age/Sex: 60 / M ADM Date: 08/23/25 Loc: HO.MRI Attending Dr: Odalys Germain MD Ordering Physician: Odalys Ward MD Date of Service: 08/23/25 Procedure(s): MR angio neck wo/w con Accession Number(s): [id number] cc: Odalys Ward MD Reason for Exam: [...] 08/26/25 1441 DD/ 1440 TD/TT: 08/26/25 1440 Fuse Coiler: Procedure Note Donotuseinterpreter, Image - 08/26/[address] [address] Magnetic Resonance Report Signed Patient: Javad AlbertoR#: [id number] : 1965Acct:[id number] Age/Sex: 60 / MADM Date: 08/23/25 Loc: HO.MRI Attending Dr: Odalys Germain MD Ordering Physician: Odalys Ward MD Date of Service: 08/23/25 Procedure(s): MR angio neck wo/w con Accession Number(s): [id number] cc: Odalys Ward MD Reason for Exam: [...] by John Fortune MD in OV> 08/26/25 144 DD/ 39 TD/TT: 08/26/251439 Fuse Coiler: us Odalys Germain MD IMG MRI PROCEDURE S Final Result * MRA Head w/o Contrast (08/26/2025 9:39 AM EDT) Anatomical Region Laterality Modality Head, Neck Magnetic Resonan ce 08/26/2025 9:39 AM EDT Narrative 08/26/2025 9:40 AM EDT [place] [address] Magnetic Resonance Report Signed Patient: Matteo Alberto MR#: [id number] : 1965 Acct:[id number] Age/Sex: 60 / M ADM Date: 08/23/25 Loc: HO.MRI Attending Dr: Odalys Germain MD Ordering Physician: Odalys Ward MD Date of Service: 08/23/25 Procedure(s): MR angio head wo con Accession Number(s): [id number] cc: Odalys Ward MD Reason for Exam: [...] in OV> 08/26/25939 DD/ 8 TD/TT: 08/26/25938 Fuse Coiler: Procedure Note Donotuseinterpreter, Image - 08/26/[address] [address] Magnetic Resonance Report Signed Patient: Elder Alberto#: [id number] : 1965Acct:[id number] Age/Sex: 60 / MADM Date: 08/23/25 Loc: HO.MRI Attending Dr: Odalys Germain MD Ordering Physician: Odalys Ward MD Date of Service: 08/23/25 Procedure(s): MR angio head wo con Accession Number(s): [id number] cc: Odalys Ward MD Reason for Exam: [...] in OV> 08/26/25939 DD/ 8 TD/TT: 08/26/25938 Fuse Coiler: Odalys Germain MD IMG MRI PROCEDURE S Final Result * (ABNORMAL) Lipid Panel, Standard (05/06/2024 9:44 AM EDT) Triglycerides 128 <150 mg/dL [facility] Comment:Desirable Triglyceri de: less than 150 mg/dLBorderline High Triglyceride 150-199 mg/dLHigh Triglyceride: 200-499 mg/dLVery High Triglyceride: greater than or equal to 5OO mg/dL Cholesterol 147 <200 mg/dL [facility] Comment:Desirable Cholestero l: less than 200 mg/dLBorderline High Cholesterol: 200-239 mg/dLHigh Cholesterol: greater than 239 mg/dL LDL Cholesterol Calculated 93 <100 mg/dL [facility] Comment:Desirable LDL: less than 100 mg/dLNear Optimal/Above Optimal LDL: 110- 129 mg/dLBorderline High LDL: 130-159 mg/dLHigh LDL: 160-189 mg/dLVery High LDL: greater than or equal to 190 mg/dL HDL Cholesterol 29(L) >40 mg/dL [facility] Comment:Desirable HDL: great er than 40 mg/dL Note: This HDL assay may give artificially low results in patients with liver disease. Blood Venous blood specimen / Unknown 05/06/2024 9:44 AM EDT 05/06/2024 10:51 AM EDT us Chris Campbell MD LAB BLOOD ORDERABLES Final Result [facility] [address] [place], [place] [phone] * Hm Colonoscopy (05/14/2020 2:46 PM EDT) Colonoscopy 2 to 3+ inflamed internal hemorrhoids, diverticulosis seen on CAT scan. 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
--- OUTSIDE RECORDS SUMMARY | 2025-09-30 08:36 | XMS_ITS | Clinical Summary ---
Author Organization [facility] Address [address] [place] [address] Care Team Providers Care Automobile Repair Service Estimator Name Role Phone Pcp, No Primary Care [...] patient's age to complete this topic Insurance [facility] MEDICARE OUT OF NETWORK Member Subscriber Plan / Payer (Ef fective 2016-Present) Name:Matteo Alberto Member ID:[id number] Relation to Subscriber:Self Name:Matteo Alberto Subscriber ID:[id number] Payer ID:Not on file Group ID:Not on file Type:Not on file Address: [address] MEDICARE OUT OF NETWORK on file Care Teams Automobile Repair Service Estimator Relationship Specialty Start Date End Date Pcp, Sissy PCP - General General Medicine 12/28/20
--- OUTSIDE RECORDS SUMMARY | 2025-09-30 08:36 | XMS_ITS | Encounter Summary ---
Author Organization [employer] Address [address] [facility] 7t [place] [address] Care Team Providers Care Rehabilitation Specialist Name Role Phone Chris Sarah MD Primary Care Provide r Reason for Visit * Reason Comments Med Refill Encounter Details Date Type Department Care Team ([facility] st Contact Info) Description 10/21/2024 Refill [facility] [address] [place] [address] Chris Sarah MD [address] [place] [address] Social History Tobacco Use Types Packs/Day Years [...] documented as of this encounter Care Teams Rehabilitation Specialist Relationship Specialty Start Date End Date Chris Sarah MD [address] [place] [phone] PCP - General Internal Medicine 06/13/14 documented as of this encounter
--- OUTSIDE RECORDS SUMMARY | 2025-09-30 08:36 | XMS_ITS | Encounter Summary ---
Author Organization [employer] Address [address] [facility] 7t [place] [address] Care Team Providers Care Chipper Feeder Name Role Phone Chris Sarah MD Primary Care Provide r Reason for Visit * Reason Comments Med Refill Encounter Details Date Type Department Care Team ([facility] st Contact Info) Description 10/10/[address] [facility] [address] [place] [address] Chris Sarah MD [address] [place] [address] Social History Tobacco Use Types Packs/Day Years [...] documented as of this encounter Care Teams Chipper Feeder Relationship Specialty Start Date End Date Chris Sarah MD [address] [place] [phone] PCP - General Internal Medicine 06/13/14 documented as of this encounter
--- OUTSIDE RECORDS SUMMARY | 2025-09-30 08:37 | XMS_ITS | Encounter Summary ---
Author Organization [employer] Address [address] [facility] 7t [place] [address] Care Team Providers Care Stunt Driver Name Role Phone Chris Sarah MD Primary Care Provide r Encounter Details Date Type Department Care Team ([facility] st Contact Info) Description 09/19/2023 Abstract [facility] [address] [place] [address] Chris Sarah MD [address] [place], [place] [phone] Social History Tobacco Use Types Packs/Day Years [...] on filedocumented in this encounter Care Teams Stunt Driver Relationship Specialty Start Date End Date Chris Sarah MD [address] [place] [phone] PCP - General Internal Medicine 06/13/14 documented as of this encounter
--- OUTSIDE RECORDS SUMMARY | 2025-09-30 08:37 | XMS_ITS | Encounter Summary ---
Author Organization [employer] Address [address] [facility] 7t [place] [address] Care Team Providers Care Topstitcher Lockstitch Name Role Phone Chris Sarah MD Primary Care Provide r Encounter Details Date Type Department Care Team (Latest Contact Info) Description 11/13/2018 Abstract [facility] CONVERSIONS Dental, Provider, DDS Social History Tobacco [...] on filedocumented in this encounter Care Teams Topstitcher Lockstitch Relationship Specialty Start Date End Date Chris Sarah MD [address] [place] [phone] PCP - General Internal Medicine 06/13/14 documented as of this encounter
--- OUTSIDE RECORDS SUMMARY | 2025-09-30 08:37 | XMS_ITS | Encounter Summary ---
Author Organization [employer] Address [address] [facility] 7t [place] [address] Care Team Providers Care Utility Driver Name Role Phone Chris Sarah MD Primary Care Provide r Encounter Details Date Type Department Care Team (Late st Contact Info) Description 09/15/2022 Abstract [facility] [address] [place] [address] Provider, Yair, Social History Tobacco Use Types [...] on filedocumented in this encounter Care Teams Utility Driver Relationship Specialty Start Date End Date Chris Sarah MD [address] [place] [phone] PCP - General Internal Medicine 06/13/14 documented as of this encounter
== END 2025-09-30 08:31 | disposition home or self-care (01) ==
LOC: HO.MRI 08:30
PROVIDERS: PCP Internal Medicine; Visit Provider Internal Medicine
DX: R90.89 Other abnormal findings on diagnostic imaging of central nervous system (principal)
CPT/HCPCS: 70553; A9585

== ENCOUNTER → 2025-09-30 08:56 | Outpatient (BNV) | payer OTHER, SELFPAY | PROVIDERS: PCP Internal Medicine; Visit Provider Radiology Diagnostic Radiology | DX: J34.89 Other specified disorders of nose and nasal sinuses (principal) | CPT/HCPCS: 70553 ==

== ENCOUNTER 2025-10-03 14:58 | Outpatient (AMB) | payer OTHER, SELFPAY ==
--- NOTE | 2025-10-03 15:02 | MHC.OFFVIS ---
Vital Signs 10/03/25 15:03 Height 5 ft 6 in Weight 200 lb BMI 32.3 BP 118/58 L Blood Pressure Location Rt brachial Position Sitting Pulse 72 Pulse Source Pulse Oximeter Pulse Oximetry (%) 97 Oxygen Delivery Method Room Air Intake Visit Reasons: Bright Red Blood Per Rectum Intake Note: New / Returning pt for rectal bleeding eval + mgmt of GERD. NIKHIL 2021. CC: C/O LUQ pain, constipation, and BRB per rectum. No additional sx at this time. Pt states he stopped taking all of his prior GI meds as he did not feel that it was necessary at the time. Pt denies any GERD sx. Sheldon [id number] + Ning [id number] [employer] (VRI). VRI connection was lost during the middle of the intake with the MA. Priming Mixture Carrier Required: Yes Priming Mixture Carrier Services: Priming Mixture Carrier Present Accompanied by: Self / Same As Patient Allergies No Known Allergies (No Known Allergies*) Allergy (Verified 09/06/25 15:01) HPI HPI Bright Red Blood Per Rectum: Details: LAST VISIT: 12/17/2021 GERD (gastroesophageal reflux disease) Patient reports that acid reflux symptoms are suppressed with pantoprazole. Patient denies any dyspepsia, dysphagia or odynophagia. Patient can continue pantoprazole daily. Patient will call us if he will need refill. Discussed with patient the importance of avoiding dietary triggers and late night snacking. The importance of staying upright for minimal 3 hours after meals was stressed. Internal hemorrhoids Patient denies any rectal pain, bleed. Patient states that he has not had any symptoms of even blood on the tissue after bowel movement since last time I saw him. Patient had used Proctosol cream and reports that it was helpful. Patient still has more refills left. I will see him in 1 year, sooner on as needed basis. Patient is agreeable to plan of care verbalizes understanding of instructions. He was given the opportunity to ask questions and all questions answered. ? Thank you for allowing me to participate in his care Plan Medications Refilled docusate sodium 100 mg PO BEDTIME 90 caps 5RF Z87.19 TODAY'S VISIT Patient is here today for requested visit as patient will be due to go for colonoscopy again. Last seen in November of 2021, no recent follow-up.. Patient reports that he frequently experiences left upper quadrant pain. Patient described the pain as sharp, feeling gassy at the same time when he has the pain. Abdominal bloating. Patient reports that he continues to be constipated, occasional blood in the stool when having a bowel movement. Patient had colonoscopy in 2016 tubular adenoma found, colonoscopy repeated in 2019 no polyps found. Patient denies any family history of CRC. Patient reports that he no longer has acid reflux so he stopped taking PPI. Patient denies dyspepsia, dysphagia or odynophagia. PFSH Medical History Bleeding hemorrhoids Internal hemorrhoids GERD (gastroesophageal reflux disease) Surgical History Hx of transurethral resection of prostate Hx of CABG Hx of colonoscopy Social History Household Members: Spouse Housing: House Alcohol intake: unknown Patient Tobacco Use Status: Never used Tobacco service: No Current occupational status: disabled Review of Systems Const Denies weight gain and Denies weight loss ENT Reports no additional complaints, Denies dysphagia and Denies odynophagia Card Reports no additional complaints Resp Reports no additional complaints GI Reports abdominal pain (LUQ), Denies belching, Denies melena, Denies bloating, Denies change in bowel habits, Reports constipation, Denies dysphagia, Denies excessive flatus, Denies dyspepsia, Denies heartburn, Denies diarrhea, Denies loose stools, Denies nausea, Denies odynophagia and Denies vomiting Reports no additional complaints Musc Reports no additional complaints Neuro Reports no additional complaints Psych Reports no additional complaints Endo Reports no additional complaints Physical Exam Vital Signs: Last Vital Signs Pulse 72 10/03/25 15:03 BP 118/58 L 10/03/25 15:03 Pulse Ox 97 10/03/25 15:03 Oxygen Delivery Method Room Air 10/03/25 15:03 BMI result Body Mass Index 32.3 Const General: healthy appearing, no acute distress and well developed Nutritional Appearance: well nourished Orientation/consciousness: patient oriented x3 Resp Effort & Inspection: normal respiratory effort, able to speak in complete sentences, no tracheal deviation and symmetric chest movement Auscultation: clear to auscultation bilaterally Cardio Rate: regular rate GI Inspection: Yes normal to inspection, No distended and Yes obesity Palpation (GI): Soft to palpation, not firm, nontender and No hepatosplenomegaly present Auscultation: normal bowel sounds General: Yes no CVA tenderness Back/Spine/Pelvis Back: no CVA tenderness Skin General skin exam: elasticity normal, turgor normal and dry skin Neuro General: patient oriented x3 Psych Appearance: grossly normal Mental Status: mental status grossly normal Assessment & Plan Assessment & Plan (1) Internal hemorrhoids: Comment: seen on last colo--05/14/20 Code(s): K64.8 - Other hemorrhoids Category: Medical (2) Constipation: Code(s): K59.00 - Constipation, unspecified Qualifiers: Constipation type: slow transit constipation Qualified Code(s): K59.01 - Slow transit constipation (3) Postprandial abdominal bloating: Code(s): R14.0 - Abdominal distension (gaseous) (4) Abdominal pain, LUQ (left upper quadrant): Code(s): R10.12 - Left upper quadrant pain Plan Patient was encouraged to increase fluid intake and activity to remove bowel motility. Patient can start taking Dulcolax daily. He will return in 3 months. We will schedule him for colonoscopy and discussed the prep again. Patient was also encouraged to increase fiber intake. Eat more vegetables and fruits. Encouraged patient to lose weight. Patient is agreeable to this plan and verbalizes understanding of instructions. He was given the opportunity to ask questions and all questions answered. Thank you for allowing me to participate in his care Medications: New bisacodyl (Dulcolax (bisacodyl)) 10 mg (2 x 5 mg) PO BEDTIME 180 tabs 4RF polyethylene glycol 3350 (Miralax) As directed by gastro[facility]ology department at [facility] 238 grams PO ONCE 238 grams 0RF Z12.11 - Encounter for screening for malignant neoplasm of colon Coding Level of Care Code New Pt Level 3 (87403) Diagnoses Internal hemorrhoids K64.8 Slow transit constipation K59.01 Constipation type: slow transit constipation Postprandial abdominal bloating R14.0 Abdominal pain, LUQ (left upper quadrant) R10.12 Time Spent (min) 40 Comment 30 minutes spent with patient and additional 10 minutes spent reviewing his records
[2025-10-03 15:03] VITALS: BP 118/58; PULSE 72; O2SAT 97; BMI 32.3
--- OUTSIDE RECORDS SUMMARY | 2025-10-03 19:05 | XMS_ITS | Encounter Summary ---
Author Organization [email or web address] Address [address] [facility] [address] [place] [address] Care Team Providers Care Food Server Name Role Phone Chris Sarah MD Primary Care Provide r Reason for Visit * Reason Onset Date Comments Results 09/30/2025 Encounter Details Date Type Department Care Team ([facility] st Contact Info) Description 09/30/2025 Results Follow-Up [facility] MED[facility]INE [address] [place] [address] Odalys Ward MD [address] [place] [address] Mr Brain w/ and w/o Contrast Social History Tobacco Use Types [...] encounter Miscellaneous Notes * Telephone Encounter - Irasema Masters RN - 09/30/2025 12:59 PM EST TC placed to the pt in regard to MRI findings below indicating now hemorrhage, infarction or mass. The pt was informed that there was some mild paranasal sinus disease and RN inquired if the pt was having any sinus pain or facial pressure. The pt denied any such symptoms and advised to continue to follow up with PCP regarding chronic conditions. Pt stated understanding and had no further questions or concerns. ----- Message from Odalys Germain MD sent at 09/30/2025 12:53 PM EST ----- Please inform pt MRI brain w/o contrast Showing No evidence of intracranial hemorrhage, acute infarction, mass effect, or edema. No abnormal contrast enhancement. 2. Minimal white matter changes of small vessel ischemia. 3. Mild paranasal sinus disease involving the maxillary and ethmoid sinuses. In regards sinus findings Please ask pt if having any new sinus pain ,pressure facial sensation,fever >??so I can prescribe Flonase if needed , if asymptomatic no need of treatment Explain no other concerning findings on image has Minimal white matter changes of small vessel ischemia. To continue care w PCP for control of BP ,cholesterol Thanks ----- Message ----- From: Interface, Ris Results In Sent: 09/30/2025 10:04 AM EST To: Odalys Germain MD * Result Encounter Note - Odalys Germain MD - 09/30/2025 12:53 PM EST Please inform pt MRI brain w/o contrast Showing No evidence of intracranial hemorrhage, acute infarction, mass effect, or edema. No abnormal contrast enhancement. 2. Minimal white matter changes of small vessel ischemia. 3. Mild paranasal sinus disease involving the maxillary and ethmoid sinuses. In regards sinus findings Please ask pt if having any new sinus pain ,pressure facial sensation,fever >??so I can prescribe Flonase if needed , if asymptomatic no need of treatment Explain no other concerning findings on image has Minimal white matter changes of small vessel ischemia. To continue care w PCP for control of BP ,cholesterol Thanks documented in this encounter Plan of Treatment Not on file documented as of this encounter Visit Diagnoses Not on filedocumented in this encounter Additional Health Concerns Assessment Noted Time PHQ-9 Depression Total Score: 0 09/03/20 24 11:28 AM EST documented as of this encounter Care Teams Food Server Relationship Specialty Start Date End Date Chris Sarah MD [address] [place] [id number] PCP - General Internal Medicine 06/13/14 documented as of this encounter
--- OUTSIDE RECORDS SUMMARY | 2025-10-03 19:05 | XMS_ITS | Encounter Summary ---
Author Organization [employer] Address [address] [facility] [address] [place] [address] Care Team Providers Care Stove Fitter Name Role Phone Chris Sarah MD Primary Care Provide r Reason for Visit * Reason Comments Med Refill Encounter Details Date Type Department Care Team ([facility] st Contact Info) Description 10/21/2024 Refill [facility]INE [address] [place] [address] Chris Sarah MD [address] [place] [address] Social History Tobacco Use Types Packs/Day Years [...] documented as of this encounter Care Teams Stove Fitter Relationship Specialty Start Date End Date Chris Sarah MD [address] [place] [id number] PCP - General Internal Medicine 06/13/14 documented as of this encounter
--- OUTSIDE RECORDS SUMMARY | 2025-10-03 19:05 | XMS_ITS | Encounter Summary ---
Author Organization [employer] Address [address] [facility] [address] [place] [address] Care Team Providers Care High School Director Name Role Phone Chris Sarah MD Primary Care Provide r Reason for Visit * Reason Comments Med Refill Encounter Details Date Type Department Care Team ([facility] st Contact Info) Description 10/10/2024 Refill [facility] MEDICINE [address] [place] [address] Chris Sarah MD [address] [place] [address] Social History Tobacco Use Types Packs/Day Years [...] documented as of this encounter Care Teams High School Director Relationship Specialty Start Date End Date Chris Sarah MD [address] [place] [phone] PCP - General Internal Medicine 06/13/14 documented as of this encounter
--- OUTSIDE RECORDS SUMMARY | 2025-10-03 19:06 | XMS_ITS | Clinical Summary ---
Author Organization [facility] Address [address] [place] [address] Care Team Providers Care Cabin Man Name Role Phone Pcp, No Primary Care [...] patient's age to complete this topic Insurance [facility] MEDICARE OUT OF NETWORK Member Subscriber Plan / Payer (Ef fective 2016-Present) Name:Matteo Alberto Member ID:[id number] Relation to Subscriber:Self Name:Matteo Alberto Subscriber ID:[id number] Payer ID:Not on file Group ID:Not on file Type:Not on file Address: [address] MEDICARE OUT OF NETWORK on file Care Teams Cabin Man Relationship Specialty Start Date End Date Pcp, Sissy PCP - General General Medicine 12/28/20
--- OUTSIDE RECORDS SUMMARY | 2025-10-03 19:06 | XMS_ITS | Clinical Summary ---
Author Organization [employer] Address [address] [facility] 7[address] [place] [address] Care Team Providers Care Genetics Physician Name Role Phone Chris Sarah MD Primary [...] 75 MG tabletIndications :Athscl heart disease of [place] coronary artery w/o ang pctrs TAKE 1 TABLET BY MOUTH EVERY EVENING 90 tablet 3 5 Active atorvastatin (Lipitor) 40 MG tabletIndications :Athscl heart disease of [place] coronary artery w/o ang pctrs TAKE 1 TABLET BY MOUTH AT BEDTIME 90 tablet 3 5 Active Aspirin Low Dose 81 MG chewable tabletIndications :Athscl heart disease of [place] coronary artery w/o ang pctrs TAKE 1 [...] go. He tells me he was in [facility] and there they checked his uric acid [...] Please correlate clinically. Pt was referred to program support specialist for evaluation and was seen last [...] interested in psychotherapy Pt referred to our [facility] Clinician Pt reporting Insomnia , good results with Ambien Atherosclerosis of coronary artery 03/03/2014 Assessment & Plan (09/12/2023 3:05 PM EST): He is s/p quadruple coronary bypass graft surgery, performed at [facility], after STEMI on 02-23-14; Pt underwent cardiac rehabilitation at [facility]. Currently on Plavix. Pt under the care of [facility] last seen 09/14/2021 Myocardial perfusion scan 10/10/2019 showed: Basal inferolateral transmural infarct , Mild to moderate intensity ischemia of the lateral and mid and apical inferolateral wall. EF 72% Pt on Beta araceli, Plavix and Statin He had a cardiac cath at [facility] 11/2019 Under the care of Cardiology last seen: 07/2023 Dr Naqvi Assessment & Plan (06/15/2023 2:42 PM EDT): He is s/p quadruple coronary bypass graft surgery, performed at [facility], after STEMI on 02-23-14; Pt underwent cardiac rehabilitation at [facility]. Currently on Plavix. Pt under the care of [facility] last seen 09/14/2021 Myocardial perfusion scan 10/10/2019 showed: Basal inferolateral transmural infarct , Mild to moderate intensity ischemia of the lateral and mid and apical inferolateral wall. EF 72% Pt on Beta araceli, Plavix and Statin He had a cardiac cath at [facility] 11/2019 Under the care of Cardiology last [...] a neurosurgical consultation with Dr. Barber at [facility]. He was seen by Dr. Posada 03/04/2024 [...] a neurosurgical consultation with Dr. Barber at [facility]. He was seen by Dr. Posada 03/04/2024 his impression was that patient had a left upper extremity radiculopathy that failed conservative therapy, he mentions that imaging is consistent with progressive findings. He proposed a 4 level ACDF C3-4, C4-5, C5- 6, C6-7 Today patient tells me he recently returned [place] [facility] and he feels his neck pain improved [...] Encounters Date Type Department Care Team Description 09/30/2025 Results Follow-Up [address] [address] Odalys Ward MD Mr Brain w/ and w/o Contrast 09/06/2025 Orders Only GENERIC EXTERNAL DATA DEPARTMENT Provider, Generic External Data 09/02/2025 [address] [place] [place] [address] Chris Sarah MD October recall 08/28/2025 Results Follow-Up [facility] [address] [facility] [place] [address] Odalys Ward MD MRA Head w/o Contrast 08/28/2025 Orders Only [address] [place] [address] Odalys Ward MD Abnormal MRA, brain (Primary Dx) 07/09/[address] [place] [address] Chris Sarah MD Durable Medical Equipment from Last 3 Months Immunizations Immunization Administration [...] Colorectal Cancer Screening 05/14/2025 COVID-19 Vaccine ( - season) 2025 09/03/2024, 10/05/2021, 03/24/2021, Additional history exists Influenza Vaccine (#1) 2025 , 09/12/2023, 09/16/2021, Additional history exists Depression Screening 09/03/2025 09/03/2024, 09/03/20 24 SDOH Screening 05/20/2026 05/20/2025 Tobacco Screening 07/01/2026 07/01/2025 DTaP/Tdap/Td Vaccines (2 - Td or Tdap) 08/31/2027 08/31/2017, 09/01/2004 Lipid Panel 05/06/2029 05/06/2024, 0810/2022, 10/04/2021, Additional history exists HIB Vaccines Aged [...] Procedure Name Priority Date/Time Associated Diagnosis Comments MR BRAIN W AND WO CONTRAST Routine 09/30/2025 8:[address] ABDOMEN PELVIS W CONTRAST Routine 09/06/2025 [...] Recently Relevant to Health Maintenance Results * Mr Brain w/ and w/o Contrast (09/30/2025 8:56 AM EST) Anatomical Region Laterality Modality Brain Magnetic Resonan ce 09/30/2025 8:56 AM EST Narrative 09/30/2025 10:03 AM EST [place] [address] Magnetic Resonance Report Signed Patient: Matteo Alberto MR#: [id number] : 1965 Acct:[id number] Age/Sex: 60 / M ADM Date: 09/30/25 Loc: HO.MRI Attending Dr: Odalys Hdez MD Ordering Physician: Odalys Ward MD Date of Service: 09/30/25 Procedure(s): MR head/brain wo/w con Accession Number(s): [id number] cc: Chris Phoenix MD; Odalys Ward MD Reason for Exam: RT AICA NOT DEFINITELY SEEN EXAMINATION: MR BRAIN WITHOUT AND WITH CONTRAST CLINICAL INFORMATION: 60-year-old male, 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 Headaches times multiple months. Blurry vision and dizziness. COMPARISON: 06/21/2018. TECHNIQUE: Multiplanar, multisequence MRI of the brain was obtained before and after the intravenous administration of 10 mL Gadavist. Examination performed on a 1.5 Marilynn Siemens high-field unit. FINDINGS: There is no diffusion restriction. There is no intracranial hemorrhage, acute infarction, mass effect, or edema. Ventricles, sulci, and cisterns are normal in size and configuration for patient age. No shift of midline. No abnormal hemosiderin deposition is identified. There are a few scattered punctate foci of white matter T2 hyperintensity in the periventricular, subcortical, and hemispheric deep white matter. These foci are nonspecific but statistically relate to small vessel ischemic changes. There is no abnormal intra or extra-axial enhancement after the administration of contrast. Midline structures appear normally formed. The pituitary gland appears normal. Posterior fossa structures appear normal. Cerebellar tonsils are appropriately located. Major flow voids are preserved within the skull base. The globes and orbital contents demonstrate no abnormalities. Paranasal sinuses demonstrate mild mucosal thickening seen throughout the dependent maxillary sinuses bilaterally, and ethmoid sinuses. Remainder of the paranasal sinuses are normally aerated. The mastoids and tympanic cavities are normally aerated. Extracranial soft tissues demonstrate no abnormalities. No suspicious bone marrow changes are evident. Atlantoaxial joint demonstrates mild to moderate degenerative changes. MR/MR head/brain wo/w con IMPRESSION: 1. No evidence of intracranial hemorrhage, acute infarction, mass effect, or edema. No abnormal contrast enhancement. 2. Minimal white matter changes of small vessel ischemia. 3. Mild paranasal sinus disease involving the maxillary and ethmoid sinuses. Electronically signed by: Scottie Lowery MD 09/30/2025 10:00 AM [facility] [place] Dictated By: Scottie Lowery MD Signed By: <Electronically signed by Scottie Lowery MD in OV> 09/30/25 1000 DD/ 0856 TD/TT: 09/30/25 0913 Dry Cleaner Helper: Procedure Note Donotuseinterpreter, Image - 09/30/[address] [address] Magnetic Resonance Report Signed Patient: Elder Alberto#: [id number] : 1965Acct:[id number] Age/Sex: 60 / MADM Date: 09/30/25 Loc: HO.MRI Attending Dr: Odalys Hdez MD Ordering Physician: Odalys Ward MD Date of Service: 09/30/25 Procedure(s): MR head/brain wo/w con Accession Number(s): [id number] cc: Chris Phoenix MD; Odalys Ward MD Reason for Exam: RT AICA NOT DEFINITELY SEEN EXAMINATION: MR BRAIN WITHOUT AND WITH CONTRAST CLINICAL INFORMATION: 60-year-old male, 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 Headaches times multiple months. Blurry vision and dizziness. COMPARISON: 06/21/2018. TECHNIQUE: Multiplanar, multisequence MRI of the brain was obtained before and after the intravenous administration of 10 mL Gadavist. Examination performed on a 1.5 Marilynn Siemens high-field unit. FINDINGS: There is no diffusion restriction. There is no intracranial hemorrhage, acute infarction, mass effect, or edema. Ventricles, sulci, and cisterns are normal in size and configuration for patient age. No shift of midline. No abnormal hemosiderin deposition is identified. There are a few scattered punctate foci of white matter T2 hyperintensity in the periventricular, subcortical, and hemispheric deep white matter. These foci are nonspecific but statistically relate to small vessel ischemic changes. There is no abnormal intra or extra-axial enhancement after the administration of contrast. Midline structures appear normally formed. The pituitary gland appears normal. Posterior fossa structures appear normal. Cerebellar tonsils are appropriately located. Major flow voids are preserved within the skull base. The globes and orbital contents demonstrate no abnormalities. Paranasal sinuses demonstrate mild mucosal thickening seen throughout the dependent maxillary sinuses bilaterally, and ethmoid sinuses. Remainder of the paranasal sinuses are normally aerated. The mastoids and tympanic cavities are normally aerated. Extracranial soft tissues demonstrate no abnormalities. No suspicious bone marrow changes are evident. Atlantoaxial joint demonstrates mild to moderate degenerative changes. MR/MR head/brain wo/w con IMPRESSION: 1. No evidence of intracranial hemorrhage, acute infarction, mass effect, or edema. No abnormal contrast enhancement. 2. Minimal white matter changes of small vessel ischemia. 3. Mild paranasal sinus disease involving the maxillary and ethmoid sinuses. Electronically signed by: Scottie Lowery MD 09/30/2025 10:00 AM EST RP Dictated By: Scottie Lowery MD Signed By: <Electronically signed by Scottie Lowery MD in OV> 09/30/25 1000 DD/ 0856 TD/TT: 09/30/25 0913 Dry Cleaner Helper: [facility] HealthcareLindaJaclyn Germain MD IMG MRI PROCEDURE S Final Result * CT Abdomen Pelvis w/ Contrast (09/06/2025 8:37 PM EST) Anatomical Region Laterality Modality Body, Pelvis, Abdomen Computed T omography 09/06/2025 8:37 PM EST Narrative 09/06/2025 8:38 PM EST [place] [address] CT Scan Report Signed Patient: Matteo Alberto MR#: [id number] : 1965 Acct:[id number] Age/Sex: 60 / M ADM Date: 09/06/25 Loc: HO.ED Attending Dr: Ordering Physician: Jefe Perry MD Date of Service: 09/06/25 Procedure(s): CT abdomen pelvis w IV con Accession Number(s): [id number] cc: Jefe Perry MD; Chris Phoenix MD Report Number: [id number]: Total DLP = 0.00 mGy-cm Reason for [...] in OV> 09/06/252037 DD/ 36 TD/TT: 09/06/252036 Dry Cleaner Helper: Procedure Note Donotuseinterpreter, Image - 09/06/[address] [place] [address] [address] Scan Report Signed Patient: Elder Alberto#: [id number] : 1965Acct:[id number] Age/Sex: 60 / MADM Date: 09/06/25 Loc: HO.ED Attending Dr: Ordering Physician: Jefe Perry MD Date of Service: 09/06/25 Procedure(s): CT abdomen pelvis w IV con Accession Number(s): [id number] cc: Jefe ePrry MD; Chris Phoenix MD Report Number: [id number]: Total DLP = 0.00 mGy-cm Reason for [...] in OV> 09/06/252037 DD/ 36 TD/TT: 09/06/252036 Dry Cleaner Helper: [facility] External Provider IMG CT PROCEDURES Final Result * Urinalysis with Reflex to Microscopic (09/06/2025 3:13 PM EST) Color Urine Yellow [facility] Appearance Urine Clear [facility] PH 6.0 5.0 - 9.0 [facility] Glucose Urine UA Negative Negative mg/dL [facility] Urine Blood Negative Negative [facility] Specific [place] - Urine 1.015 1.005 - 1.025 [facility] Urine Protein Negative Neg-Trace mg/dL [facility] Urine Ketones Negative Negative mg/dL [facility] Nitrite Urine Negative Negative [facility] Leukocyte Esterase Urine Negative Negative [facility] 09/06/2025 3:13 PM EST 09/06/2025 3:18 PM EST Generic External Data Provider LAB URINE ORDERAB LES Final Result [facility] [address] [place] [phone] * (ABNORMAL) CBC auto differential (09/06/2025 3:13 PM EST) White Blood Count 13.3(H) 4.8 - 10.8 X10*3/uL [facility] Red Blood Count 5.32 4.60 - 5.80 X10*6/uL [facility] Hemoglobin 15.2 14.0 - 18.0 g/dl [facility] Hematocrit 45.1 42.0 - 52.0 % [facility] Mean Corpuscular Volume 84.8 80.0 - 98.0 fL [facility] Mean Corpuscular Hemoglobin 28.6 27.0 - 33.0 pg [facility] Mean Corpuscular HGB Conc 33.7 31.0 - 36.0 g/dl [facility] Red Cell Distribution Width 14.6 11.0 - 16.0 % [facility] Platelet Count 205 160 - 400 X10*3/uL [facility] Mean Platelet Volume 10.5 9.4 - 12.4 fL [facility] Neutrophils Percent Auto 72.9 45 - 73 % [facility] Imm Gran Pct Auto 1.4(H) 0.0 - 0.4 % [facility] Lymphocytes Percent Auto 16.6(L) 20 - 40 % [facility] Monocytes Percent Auto 8.0 2 - 11 % [facility] Eosinophils Percent Auto 1.0 0 - 4 % [facility] Basophils Percent Auto 0.1 0 - 2 % [facility] NRBC Pct Auto 0.0 0.0 - 0.2 /100WBC [facility] Neutrophils Absolute Auto 9.7(H) 2.0 - 8.3 x10*3/uL [facility] Imm Gran Abs Auto 0.18(H) 0.00 - 0.03 X10*3/uL [facility] Lymphocytes Absolute Auto 2.2 1.2 - 4.9 X10*3/uL [facility] Monocytes Absolute Auto 1.1 0.1 - 1.2 X10*3/uL [facility] Eosinophils Absolute Auto 0.1 0.0 - 0.4 X10*3/uL [facility] Basophils Absolute Auto 0.0 0.0 - 0.2 X10*3/uL [facility] NRBC Abs Auto 0.000 0.0 - 0.012 X10*3/uL [facility] 09/06/2025 3:13 PM EST 09/06/2025 3:18 PM EST us Generic External Data Provider LAB BLOOD ORDERAB LES Final Result Performing Organization Address City/[facility]/ZIP Co de Phone Number [facility] [address] [place] [phone] * Lipase (09/06/2025 3:13 PM EST) Lipase 46 8 - 78 U/L [facility] 09/06/2025 3:13 PM EST 09/06/2025 3:18 PM EST Generic External Data Provider LAB BLOOD ORDERAB LES Final Result Performing Organization Address City/[facility]/ZIP Co de Phone Number [facility] [address] [place] [phone] * (ABNORMAL) Comprehensive Metabolic Panel (09/06/2025 3:13 PM EST) Sodium 132(L) 135 - 145 mmol/L [facility] Potassium 4.5 3.3 - 5.1 mmol/L [facility] Comment:Mild Hemolysis.Inter pret result with caution Chloride 99 96 - 108 mmol/L [facility] Carbon Dioxide 24 22 - 29 mmol/L [facility] Anion Gap 14 12 - 20 [facility] Urea Nitrogen (BUN) 18(H) 9 - 16 mg/dL [facility] Creatinine, Serum 0.98 0.5 - 1.4 mg/dL [facility] Creatinine Clr Calc Pharmacy 82.2 [facility] Comment:eGFR (calculated fro m the MDRD study equation) and eCrCl(calculated from the Cockcroft-Gault equation) are based ondifferent parameters and may not yield comparable results.If eCrCl result is absurd, please check patient'sheight/weight. Estimated Glomerular Filt Rate >60 [facility] Comment:Chronic Kidney Disea se: Estimated GFR < 60 mL/min/1.62g0Aqoqwc Kidney Disease: Estimated GFR < 15 mL/min/1.73m2 Glucose 124(H) 60 - 115 mg/dL [facility] Calcium 8.5 8.4 - 10.2 mg/dL [facility] Bilirubin, Total 0.6 0.0 - 1.0 mg/dL [facility] Aspartate Amino Transferase 37 5 - 37 U/L [facility] Comment:Mild Hemolysis.Inter pret result with caution Alanine Aminotransferase 61(H) 0 - 40 U/L [facility] Total Protein 6.9 6.5 - 8.0 g/dL [facility] Comment:Mild Hemolysis.Inter pret result with caution Albumin Level 3.9 3.5 - 5.0 g/dL [facility] Alkaline Phosphatase 79 39 - 117 U/L [facility] 09/06/2025 3:13 PM EST 09/06/2025 3:18 PM EST us Generic External Data Provider LAB BLOOD ORDERAB LES Final Result Performing Organization Address City/State/[facility] Co de Phone Number [facility] [address] [place] [phone] * MRA Neck w/ and w/o Contrast (08/26/2025 2:40 PM EDT) Anatomical Region Laterality Modality Head, Neck Magnetic Resonan ce 08/26/2025 2:40 PM EDT Narrative 08/26/2025 2:41 PM EDT [address] [address] Magnetic Resonance Report Signed Patient: Matteo Alberto MR#: [id number] : 1965 Acct:[id number] Age/Sex: 60 / M ADM Date: 08/23/25 Loc: HO.MRI Attending Dr: Odalys Germain MD Ordering Physician: Odalys Ward MD Date of Service: 08/23/25 Procedure(s): MR angio neck wo/w con Accession Number(s): [id number] cc: Odalys Ward MD Reason for Exam: [...] in OV> 08/26/25 1441 DD/ 144 TD/TT: 08/26/251439 Dry Cleaner Helper: Procedure Note Donotuseinterpreter, Image - 08/26/2025 [place] [address] Magnetic Resonance Report Signed Patient: Elder Alberto#: [id number] : 1965Acct:[id number] Age/Sex: 60 / MADM Date: 08/23/25 Loc: HO.MRI Attending Dr: Odalys Germain MD Ordering Physician: Odalys Ward MD Date of Service: 08/23/25 Procedure(s): MR angio neck wo/w con Accession Number(s): [id number] cc: Odalys Ward MD Reason for Exam: [...] in OV> 08/26/25 1441 DD/ 1440 TD/TT: 08/26/251439 Dry Cleaner Helper: us Odalys Germain MD IMG MRI PROCEDURE S Final Result * MRA Head w/o Contrast (08/26/2025 9:39 AM EDT) Anatomical Region Laterality Modality Head, Neck Magnetic Resonan ce 08/26/2025 9:39 AM EDT Narrative 08/26/2025 9:40 AM EDT [address] [address] Magnetic Resonance Report Signed Patient: Matteo Alberto MR#: [id number] : 1965 Acct:[id number] Age/Sex: 60 / M ADM Date: 08/23/25 Loc: HO.MRI Attending Dr: Odalys Germain MD Ordering Physician: Odalys Ward MD Date of Service: 08/23/25 Procedure(s): MR angio head wo con Accession Number(s): [id number] cc: Odalys Ward MD Reason for Exam: [...] in OV> 08/26/25939 DD/ 8 TD/TT: 08/26/25938 Dry Cleaner Helper: Procedure Note Donotuseinterpreter, Image - 08/26/[address] [address] Magnetic Resonance Report Signed Patient: Elder Alberto#: [id number] : 1965Acct:[id number] Age/Sex: 60 / MADM Date: 08/23/25 Loc: HO.MRI Attending Dr: Odalys Germain MD Ordering Physician: Odalys Ward MD Date of Service: 08/23/25 Procedure(s): MR angio head wo con Accession Number(s): [id number] cc: Odalys Ward MD Reason for Exam: [...] in OV> 08/26/25939 DD/ 8 TD/TT: 08/26/25938 Dry Cleaner Helper: us Odalys Germain MD IMG MRI PROCEDURE S Final Result * (ABNORMAL) Lipid Panel, Standard (05/06/2024 9:44 AM EDT) Triglycerides 128 <150 mg/dL [facility] Comment:Desirable Triglyceri de: less than 150 mg/dLBorderline High Triglyceride 150-199 mg/dLHigh Triglyceride: 200-499 mg/dLVery High Triglyceride: greater than or equal to 5OO mg/dL Cholesterol 147 <200 mg/dL [facility] Comment:Desirable Cholestero l: less than 200 mg/dLBorderline High Cholesterol: 200-239 mg/dLHigh Cholesterol: greater than 239 mg/dL LDL Cholesterol Calculated 93 <100 mg/dL [facility] Comment:Desirable LDL: less than 100 mg/dLNear Optimal/Above Optimal LDL: 110- 129 mg/dLBorderline High LDL: 130-159 mg/dLHigh LDL: 160-189 mg/dLVery High LDL: greater than or equal to 190 mg/dL HDL Cholesterol 29(L) >40 mg/dL [facility] Comment:Desirable HDL: great er than 40 mg/dL Note: This HDL assay may give artificially low results in patients with liver disease. Blood Venous blood specimen / Unknown 05/06/2024 9:44 AM EDT 05/06/2024 10:51 AM EDT Chris Campbell MD LAB BLOOD ORDERABLES Final Result Performing Organization Address City/[facility]/ZIP Co de Phone Number [facility] [address] [place] [phone] * Colonoscopy (05/14/2020 2:46 PM EDT) Colonoscopy 2 to 3+ inflamed internal hemorrhoids, diverticulosis seen on CAT scan. No Historical Provider HEALTH MAINTENANCE Edited Result - Final * (ABNORMAL) OCCULT BLOOD STOOL (03/30/2020 2:52 PM EDT) OCCULT BLOOD STOOL POS(AA) NEG [facility] 03/30/2020 2:52 PM EDT Historical Provider LAB BODY FLUIDS AND STOOL S ORDERABLES Final Result [facility] [address] from Last 3 Months or Most Recently Relevant to Health Maintenance Insurance CCA ONE CARE < 65 CCA ONE CARE < 65 Care Teams Genetics Physician Relationship Specialty Start Date End Date Chris Sarah MD [address] [place] [phone] PCP - General Internal Medicine 06/13/14
--- OUTSIDE RECORDS SUMMARY | 2025-10-03 19:06 | XMS_ITS | Encounter Summary ---
Author Organization [employer] Address [address] [facility] 7t [place] [address] Care Team Providers Care Lei Maker Name Role Phone Chris Sarah MD Primary Care Provide r Encounter Details Date Type Department Care Team ([facility] st Contact Info) Description 09/19/2023 Abstract [facility] [address] [place] [address] Chris Sarah MD [address] [place], [place] [phone] Social History Tobacco Use Types Packs/Day Years [...] on filedocumented in this encounter Care Teams Lei Maker Relationship Specialty Start Date End Date Chris Sarah MD [address] [place] [phone] PCP - General Internal Medicine 06/13/14 documented as of this encounter
--- OUTSIDE RECORDS SUMMARY | 2025-10-03 19:06 | XMS_ITS | Encounter Summary ---
Author Organization [employer] Address [address] [facility] [address]t [place] [address] Care Team Providers Care Database Marketing Manager Name Role Phone Chris Sarah MD Primary Care Provide r Encounter Details Date Type Department Care Team (Late st Contact Info) Description 09/15/2022 Abstract [facility] [address] [place] [address] Provider, Yair, Social History Tobacco Use Types [...] on filedocumented in this encounter Care Teams Database Marketing Manager Relationship Specialty Start Date End Date Chris Sarah MD [address] [place] [phone] PCP - General Internal Medicine 06/13/14 documented as of this encounter
--- OUTSIDE RECORDS SUMMARY | 2025-10-03 19:06 | XMS_ITS | Encounter Summary ---
Author Organization [employer] Address [address] [facility] [address]t [place] [address] Care Team Providers Care Transportation Sales Consultant Name Role Phone Chris Sarah MD Primary Care Provide r Encounter Details Date Type Department Care Team (Latest Contact Info) Description 11/13/[address] [facility] CONVERSIONS Dental, Provider, DDS Social History [...] on filedocumented in this encounter Care Teams Transportation Sales Consultant Relationship Specialty Start Date End Date Chris Sarah MD [address] [place] [address] PCP - General Internal Medicine 06/13/14 documented as of this encounter
== END 2025-10-03 15:47 | disposition home or self-care (01) ==
LOC: HO.HGI 14:59
PROVIDERS: PCP Internal Medicine; Visit Provider Nurse Practitioner Family
DX: K64.8 Other hemorrhoids (principal); K59.01 Slow transit constipation; R14.0 Abdominal distension (gaseous); R10.12 Left upper quadrant pain
CPT/HCPCS: 99203

== ENCOUNTER → 2025-10-03 14:58 | Outpatient (BNVA) | payer OTHER, SELFPAY | PROVIDERS: PCP Internal Medicine; Visit Provider Nurse Practitioner Family | DX: K62.5 Hemorrhage of anus and rectum (principal); K64.8 Other hemorrhoids; K59.01 Slow transit constipation; R14.0 Abdominal distension (gaseous); R10.12 Left upper quadrant pain | CPT/HCPCS: 99202 ==